=== PATIENT | male | born 1960 | race Caucasian/White ===

== ENCOUNTER 2018-04-21 20:25 | Emergency (ER) | payer MEDICARE ==
[~2018-04-21] VITALS: Ht 177.8 cm; Wt 142.9 kg
== END 2018-04-21 21:19 | disposition home or self-care (01) ==
LOC: ER 20:25
DX: L03.116 Cellulitis of left lower limb (principal); L03.115 Cellulitis of right lower limb; R60.9 Edema, unspecified; I10 Essential (primary) hypertension; E11.9 Type 2 diabetes mellitus without complications; I50.9 Heart failure, unspecified; E78.5 Hyperlipidemia, unspecified; F31.9 Bipolar disorder, unspecified; F41.9 Anxiety disorder, unspecified
CPT/HCPCS: 99282

== ENCOUNTER 2018-05-15 11:44 | Emergency (ER) | payer MEDICARE, OTHER ==
[~2018-05-15] VITALS: Ht 177.8 cm; Wt 142.9 kg
== END 2018-05-15 15:22 | disposition home or self-care (01) ==
LOC: ER 11:44
DX: S81.801A Unspecified open wound, right lower leg, initial encounter (principal); R60.9 Edema, unspecified; W22.8XXA Striking against or struck by other objects, initial encounter; Y92.015 Private garage of single-family (private) house as the place of occurrence of the external cause; I10 Essential (primary) hypertension; E11.9 Type 2 diabetes mellitus without complications; I50.9 Heart failure, unspecified; F41.9 Anxiety disorder, unspecified; F32.9 Major depressive disorder, single episode, unspecified
CPT/HCPCS: 99284

== ENCOUNTER 2018-05-22 13:46 | Inpatient (IN) | payer MEDICARE, OTHER ==
[~2018-05-22] VITALS: Ht 177.8 cm; Wt 128.8 kg
[2018-05-22] VITALS (15 sets, daily range): BP systolic 126–147; BP diastolic 66–82
[2018-05-22] MEDS: PIPERACILLIN/TAZO 2.25 GM 50 ML IV SCH ×2 (02:00→15:12)
[2018-05-22 14:40] LABS: BASOPHILS # (AUTO) 0.1 (0.0-0.1); BASOPHILS % 0.4 % (0.0-1.0); EOSINOPHILS # (AUTO) 0.4 (0.0-0.4); EOSINOPHILS % 2.3 % (0.0-6.0); HEMATOCRIT 32.5 % (38.2-49.6); LYMPHOCYTES % 5.7 % (18.0-39.1); MEAN CORPUSCULAR HEMOGLOBIN 24.6 pg (28-32); MEAN CORPUSCULAR HGB CONC 30.8 g/dL (31-35); MEAN CORPUSCULAR VOLUME 79.9 fL (81-99); MONOCYTES % 5.9 % (4.4-11.3); NEUTROPHILS # (AUTO) 14.3 (2.1-6.9); NEUTROPHILS % 85.3 % (38.7-80.0); PLATELET COUNT 401 x10e3/uL (140-360); RED BLOOD COUNT 4.07 x10e6/uL (4.3-5.7); RED CELL DISTRIBUTION WIDTH 15.8 % (11.7-14.4)
[2018-05-22 14:51] LABS: INR 1.19; PROTHROMBIN TIME 14.2 seconds (11.9-14.5)
[2018-05-22 14:52] LABS: PARTIAL THROMBOPLASTIN TIME 32.5 seconds (23.8-35.5)
[2018-05-22 15:01] LABS: ACETAMINOPHEN < 3 ug/mL (10-30); SALICYLATE < 5.0 mg/dL (0-30)
[2018-05-22 15:03] LABS: ALANINE AMINOTRANSFERASE 24 IU/L (0-55); ALBUMIN 3.4 g/dL (3.5-5.0); ALBUMIN/GLOBULIN RATIO 0.9 (0.8-2.0); ALKALINE PHOSPHATASE 230 IU/L (40-150); ANION GAP 15.6 mmol/L (8-16); BLOOD UREA NITROGEN 100 mg/dL (7-26); BUN/CREATININE RATIO 17 (6-25); CALCIUM 9.5 mg/dL (8.4-10.2); CARBON DIOXIDE 20 mmol/L (22-29); CHLORIDE 96 mmol/L (98-107); CREATINE KINASE 249 IU/L (30-200); CREATININE, SERUM 6.03 mg/dL (0.72-1.25); EST GLOMERULAR FILTRATION RATE 10 ML/MIN (60-); GLUCOSE 160 mg/dL (74-118); MAGNESIUM 2.9 MG/DL (1.3-2.1); POTASSIUM 4.6 mmol/L (3.5-5.1); SODIUM 127 mmol/L (136-145)
[2018-05-22 15:22] LABS: THYROID STIMULATING HORMONE 3.324 uIU/mL (0.350-4.940)
[2018-05-22] MEDS ORDERED: SODIUM CHLORIDE 0.9% 1000ML 1,000 ML IV STA (15:34)
[2018-05-22] MEDS ORDERED: SODIUM CHLORIDE 0.9% 1000ML 1,000 ML ONE (15:37)
[2018-05-22] MEDS ORDERED: VANCOMYCIN 1GM/NS 250 ML 250 ML IV ONE (16:00)
[2018-05-22 16:03] LABS: CLARITY,URINE CLEAR (CLEAR); COLOR,URINE YELLOW (YELLOW); LEUKOCYTE ESTERASE ,URINE NEGATIVE (NEGATIVE); NITRITE,URINE NEGATIVE (NEGATIVE); PROTEIN,URINE DIPSTICK NEGATIVE (NEGATIVE)
[2018-05-22 16:04] LABS: BILIRUBIN,URINE NEGATIVE (NEGATIVE); KETONES,URINE NEGATIVE (NEGATIVE); URINE UROBILINOGEN 0.2 mg/dL (0.2 - 1)
[2018-05-22 16:08] LABS: AMPHETAMINES SCREEN,URINE NEGATIVE (NEGATIVE); BENZODIAZEPINES SCREEN,URINE NEGATIVE (NEGATIVE); PHENCYCLIDINE SCREEN,URINE NEGATIVE (NEGATIVE)
[2018-05-22 16:17] LABS: AMMONIUM BIURATE CRYSTALS,UR FEW; BACTERIA,URINE RARE /HPF; EPITHELIAL CELLS,URINE RARE /LPF; RBC,URINE 0-5 /HPF (0-5); WBC,URINE (MAN) 0-5 /HPF (0-5)
[2018-05-22] MEDS ORDERED: ALLOPURINOL100 MG PO (16:45)
--- NOTE | 2018-05-22 16:57 | Diagnostic Imaging Report ---
EXAMINATION: CHEST SINGLE (PORTABLE) INDICATION: Weakness and altered mental status. \S\AMS \S\[id number] \S\1515 COMPARISON: None FINDINGS: AP view TUBES and LINES: None. LUNGS: Limited by body habitus and low lung volumes. There is no evidence of pneumonia or pulmonary edema. PLEURA: No significant pleural effusion or pneumothorax. HEART AND MEDIASTINUM: The cardiomediastinal silhouette is unremarkable. BONES AND SOFT TISSUES: No acute osseous lesion. Soft tissues are unremarkable. UPPER ABDOMEN: No free air under the diaphragm. IMPRESSION: No definite evidence of acute thoracic abnormality, considering limitations of the study. Signed by: Dr. Aladir Carter MD on 05/22/2018 4:53 PM
[2018-05-22] MEDS ORDERED: DEXTROSE 50% SYRINGE 50 ML IV PRN (17:15)
[2018-05-22] MEDS: SODIUM CHLORIDE 0.9% 1000ML 1,000 ML IV SCH ×2 (17:15→23:00)
[2018-05-22] MEDS ORDERED: ONDANSETRON HCL INJ 2 MG/ML VIAL IV PRN (17:15)
[2018-05-22] MEDS ORDERED: LAMOTRIGINE100 MG PO (17:34)
[2018-05-22] MEDS ORDERED: LITHIUM CARBON300 MG PO (17:34)
[2018-05-22] MEDS ORDERED: FUROSEMIDE40 MG PO (17:34)
[2018-05-22] MEDS ORDERED: AMLODIPINE BESY10 MG PO (17:34)
[2018-05-22] MEDS ORDERED: GLYBURIDE5 MG PO (17:34)
[2018-05-22] MEDS ORDERED: DICLOFENAC PO (17:34)
[2018-05-22] MEDS ORDERED: ATORVASTATIN CA20 MG PO (17:34)
[2018-05-22] MEDS ORDERED: VITAMIN D400 UNIT PO (17:34)
[2018-05-22] MEDS ORDERED: CITALOPRAM HBR20 MG PO (17:34)
[2018-05-22] MEDS ORDERED: ABILIFY30 MG PO (17:34)
[2018-05-22] MEDS ORDERED: GABAPENTIN600 MG PO (17:34)
[2018-05-22] MEDS ORDERED: LIDOCAINE 5% PATCH TP (17:34)
--- NOTE | 2018-05-22 17:38 | Diagnostic Imaging Report ---
History: Weakness, G Comparison studies: None Technique: Axial images were obtained from the skull base to the vertex. Coronal and sagittal reconstructions obtained from the axial data. Dose modulation, iterative reconstruction, and/or weight based adjustment of the mA/kV was utilized to reduce the radiation dose to as low as reasonably achievable. Findings: Scalp/skull: No abnormalities. No fractures, blastic or lytic lesions. Extra-axial spaces: No masses. No fluid collections. Brain sulci: Appropriate for age. Ventricles: Normal in size and configuration. No hydrocephalus. Parenchyma: No abnormal densities. No masses, hemorrhage, acute or chronic cortical vascular insults. Sellar/suprasellar region: No abnormalities Craniocervical junction: Patent foramen magnum. No Chiari one malformation. IMPRESSION: No abnormalities. Signed by: Dr. Husam Tamez M.D. on 05/22/2018 5:35 PM
[2018-05-22] MEDS ORDERED: LIDOCAINE HCL 10 MG/ML VIAL INJ ONE (18:49)
--- NOTE | 2018-05-22 19:41 | Consultation ---
DATE OF CONSULTATION: May 22, 2018 Patient seen in the emergency room. Very poor historian. Most of the history is from the patient's mother. This is a 57-year-old gentleman who has been to the emergency room here 3 times. No other records available. He has apparent chronic cellulitis and what appear to be cellulitis and laceration of the lower extremity. Currently they are dressed. [facility] and [facility] goes to [place]. Significant history of bipolar disorder, type-2 diabetes and hypertension. The mother and patient deny prior history of any kidney insufficiency. Apparently he was recently started on Bactrim 10 days ago when he had an ER visit and was found to have cellulitis of the lower extremity. Here, the patient is quite stuporous. Arousable. Gives some history and falls back to sleep. There is no neuromuscular irritability or any twitching noted. He is not in any respiratory distress. He does not have a Lewis catheter. He denies nausea but, according to mother, has been sleeping a lot and has been very lethargic. White count is found to be 16.7 with a hemoglobin of 10. Sodium of 127, potassium 4.6, chloride 96, bicarbonate 20 with a BUN 100 and creatinine 6. Lactic acid 21.7. Alkaline phosphatase 230. CK 249. Troponin I less than 0.01. Most recent chest x-ray shows no effusions or infiltrates. CT brain actual report is pending. SOCIAL HISTORY: Patient has no reported history of tobacco or alcohol use. CURRENT MEDICATIONS: The patient has been started on: 1. Normal saline at 100 mL an hour. 2. Received 1 dose of vancomycin. 3. Regular insulin sliding scale. HOME MEDICATIONS: He takes a whole armamentarium of medications, the most significant of which are gabapentin, metformin, glyburide, insulin, lithium and diclofenac. He has at least 20 medications listed. PHYSICAL EXAMINATION GENERAL: As mentioned, the patient is quite stuporous, lying supine in no apparent respiratory distress. VITALS: Blood pressure 131/60, pulse 64, afebrile, oxygen saturation 98% on room air. Respiratory rate 16. HEAD AND NECK: Corneas are clear. No icterus noted. LUNGS: Harsh vesicular breath sounds. Poor gas exchange but relatively clear. HEART: S1 and S2 audible. ABDOMEN: Distended, soft. Flanks full. Nontender. No apparent visceromegaly. SKIN: No skin rash noted. EXTREMITIES: The lower extremities did not show any significant edema but has dressing noted on both his pretibial areas which I did not remove for evaluation. IMPRESSION AND PLAN: Acute kidney injury, possible acute tubular necrosis. With mental status this way, I suspect we may be dealing with lithium toxicity. He may need urgent dialysis or stat dialysis. The ER physician has already called IR to place a stat dialysis catheter. The dialysis nurse is on standby. Await lithium levels. Will have the nurse insert a Lewis catheter. Continue with IV normal saline. Monitor the patient's blood sugars and empiric antibiotics given. Will hold off on his gabapentin, metformin and oral hypoglycemics. He does have a bicarbonate of 20. Anion gap is elevated but not significant. I doubt metformin may be playing a role. Bactrim is a possibility that this acute kidney injury ATN is multifactorial but must rule out lithium toxicity. Job#: [id number]
--- NOTE | 2018-05-22 20:04 | Diagnostic Imaging Report ---
Retroperitoneal ultrasound limited CPT code: 24350 Indication: Acute kidney injury. Technique: Select images from retroperitoneal ultrasound provided for INTERPRETATION:. Comparison: None Findings: The right kidney measures 12.7 cm in greatest length. The echotexture is increased. There is no evidence for mass. There is no collecting system dilatation or evidence of obstruction. No renal calculi evident. No adjacent free fluid or fluid collections. The left kidney measures 13.6 cm in greatest length. The echotexture is increased. There is no evidence for mass. There is no collecting system dilatation or evidence of obstruction. No renal calculi evident. No adjacent free fluid or fluid collections. Bladder collapsed around a Lewis catheter. No pelvic free fluid. Visualized portions of the liver demonstrate no focal abnormality. The echotexture of the liver is increased suggestive of steatosis. IMPRESSION: Increased renal echotexture suggestive of medical renal disease. No hydronephrosis. Signed by: Dr. Wagner Coffman MD on 05/22/2018 8:01 PM
[2018-05-22] MEDS ORDERED: LANTUS 3ML100 UNITS/ SQ (20:52)
[2018-05-22] MEDS ORDERED: OMEPRAZOLE40 MG PO (20:52)
[2018-05-22] MEDS ORDERED: METFORMIN HCL500 MG PO (20:52)
[2018-05-22] MEDS ORDERED: MIRTAZAPINE15 MG PO (20:52)
[2018-05-22] MEDS ORDERED: MULTI-VITAMIN1 EACH (20:55)
[2018-05-22] MEDS ORDERED: ASPIR 8181 MG PO (20:55)
[2018-05-22] MEDS ORDERED: NORCO 10-325 T1 EACH PO (20:55)
[2018-05-22] MEDS: INSULIN REGULAR, HUMAN 100 UNIT/1 ML 3ML VIAL SQ SCH (21:00)
[2018-05-22] MEDS ORDERED: HEPARIN SOD (PORCINE) 1000 UNIT/ML SDV ONE (22:25)
[2018-05-22] MEDS ORDERED: MANNITOL 25% 12.5GM/50ML 100 ML ONE (22:25)
[2018-05-22] MEDS: MANNITOL 25% 12.5GM/50 ML VIAL IV PRN (23:07)
[2018-05-23] VITALS (63 sets, daily range): BP systolic 107–177; BP diastolic 46–112
[2018-05-23 00:01] LABS: CREATINE KINASE MB 1.9 ng/mL (0-5.0)
[2018-05-23] MEDS ORDERED: HEPARIN SOD (PORCINE) 1000 UNIT/ML SDV ONE (00:57)
[2018-05-23 04:42] LABS: BASOPHILS % 0.3 % (0.0-1.0); EOSINOPHILS # (AUTO) 0.2 (0.0-0.4); EOSINOPHILS % 1.3 % (0.0-6.0); HEMATOCRIT 27.3 % (38.2-49.6); HEMOGLOBIN 8.5 g/dL (14.0-18.0); LYMPHOCYTES # (AUTO) 0.6 (1.0-3.2); LYMPHOCYTES % 4.5 % (18.0-39.1); MEAN CORPUSCULAR HEMOGLOBIN 24.3 pg (28-32); MEAN CORPUSCULAR HGB CONC 31.1 g/dL (31-35); MONOCYTES % 8.4 % (4.4-11.3); NEUTROPHILS # (AUTO) 10.4 (2.1-6.9); NEUTROPHILS % 85.1 % (38.7-80.0); PLATELET COUNT 299 x10e3/uL (140-360); RED CELL DISTRIBUTION WIDTH 15.9 % (11.7-14.4)
[2018-05-23 05:09] LABS: CREATINE KINASE MB 1.3 ng/mL (0-5.0)
[2018-05-23] MEDS: SODIUM CHLORIDE 0.45% 1,000 ML IV SCH ×2 (05:30→15:21)
[2018-05-23 05:40] LABS: ALBUMIN 2.8 g/dL (3.5-5.0); ALBUMIN/GLOBULIN RATIO 0.9 (0.8-2.0); ANION GAP 12.1 mmol/L (8-16); CALCIUM 8.5 mg/dL (8.4-10.2); CHOL/HDL RATIO 4.7 (3.9-4.7); CREATININE, SERUM 3.41 mg/dL (0.72-1.25); POTASSIUM 4.1 mmol/L (3.5-5.1)
[2018-05-23] MEDS: INSULIN REGULAR, HUMAN 100 UNIT/1 ML 3ML VIAL SQ SCH ×4 (07:30→21:00)
[2018-05-23] MEDS ORDERED: HEPARIN SOD (PORCINE) 5,000 UNIT/ML VIAL ONE (09:08)
[2018-05-23] MEDS ORDERED: MANNITOL 25% 12.5GM/50ML 100 ML ONE (09:09)
[2018-05-23] MEDS: SODIUM CHLORIDE 0.9% 1000ML 1,000 ML IV SCH (09:25)
[2018-05-23] MEDS ORDERED: PIPERACILLIN/TAZO 2.25 GM 50 ML IV SCH (10:00)
[2018-05-23] MEDS ORDERED: SODIUM CHLORIDE 0.9% 1000ML 2,000 ML IV PRN (11:15)
[2018-05-23] MEDS ORDERED: ALBUMIN 25% 12.5GM 0.25 GM/ML BTL IV PRN (11:15)
[2018-05-23] MEDS ORDERED: SODIUM CHLORIDE 0.9% 250ML 500 ML IV PRN (11:15)
[2018-05-23] MEDS ORDERED: HEPARIN SOD (PORCINE) 1000 UNIT/ML SDV IV PRN (11:15)
[2018-05-23] MEDS ORDERED: VANCOMYCIN 1GM/NS 250 ML 250 ML IV ONE (12:00)
--- NOTE | 2018-05-23 15:58 | Consultation ---
DATE OF CONSULTATION: REASON FOR CONSULTATION: Concerned about infection in bilateral lower extremities, cellulitis. HISTORY OF PRESENT ILLNESS This patient who is not a good source of information, 57-year-old white male comes in to the emergency room with not feeling well. Apparently, patient had bilateral lower extremity dermatitis/cellulitis/ulcer/lymphedema. He does have Unna boot on him. The patient was usually seen at the [facility]. He does have underlying history of hypertension, diabetes mellitus type 2, bipolar disorder, bilateral lower extremity edema, and also chronic kidney disease. The patient apparently was in the emergency room 10 days ago with redness and swelling of bilateral lower extremities. He was given Bactrim. The patient was brought to the emergency room with altered mental status. In the emergency room, he was found to have a white count of 16.7, hemoglobin of 10, sodium 127, potassium 4.6. His alk phosphatase was 230. Troponin was less than 0.01. The patient was admitted with altered mental status. He was also found to have an acute kidney injury, possible acute tubular necrosis. I was asked to see him to make recommendation in terms of antibiotic on his condition. The patient at the present time as mentioned above is a little bit confused. He is alert, follows command. He has no complaints whatsoever at present time, but on his laboratory data when he first came, his white count was 16.7, hemoglobin of 10, and hematocrit 32. His white count now is 12.18, hemoglobin 8.5, and his platelets 299. Sodium 137, potassium 4.1, creatinine 3.41, AST of 16, ALT of 20. Blood culture is pending. Urine culture is still no growth. MEDICATIONS: He is currently on Zosyn. PAST MEDICAL HISTORY: As above. PAST SURGICAL HISTORY: As above. ALLERGIES: NKA. SOCIAL HISTORY: Denies smoking, drug abuse, or alcohol abuse. FAMILY HISTORY: Unremarkable. REVIEW OF SYSTEMS: At the present time, he denies any HEENT: Negative. PULMONARY: Negative. CARDIAC: Negative. : Negative. I note that he does have diarrhea. EXTREMITIES: The legs are well wrapped. There is no erythema or edema that I can tell at the present time. IMPRESSION 1. Altered mental status, probably multifactorial, probably metabolic, Bactrim, acute tubular necrosis. 2. Low fever today. I would suggest to obtain LP. 3. meningitis/encephalitis. He received a dose of vancomycin. We will discontinue the Zosyn for now. 4. Diarrhea. We will obtain C. diff. 5. Acute tubular necrosis, on dialysis. Renal is following. 6. Cellulitis of the lower extremities, resolved. We will follow with you. Spinal fluid to be sent for cell count and diff, protein, glucose and to call me if any with the result. Job#: [id number] BEN
--- NOTE | 2018-05-23 16:03 | Consultation ---
DATE OF CONSULTATION: WOUND CONSULTATION Thank you, Dr. Pineda, for asking me to see this patient. HISTORY OF PRESENT ILLNESS: A 57-year-old male patient with history of psychiatric disorder, admitted with altered mental status and confusion. Patient also has chronic leg edema. He had bilateral leg ulcer. Patient was diagnosed with lithium toxicity and sepsis from cellulitis, lower extremity. He has ulcers to both legs from venous insufficiency. Wound consult was called. Patient is currently on dialysis. He responds to, answers simple questions; however, he has some dyskinetic movement and some confusion. PAST MEDICAL HISTORY: Hyperlipidemia, history of closed head injury, chronic bilateral leg edema, bipolar disorder, obstructive sleep apnea, GERD, diabetes mellitus, hypertension, and morbid obesity. MEDICATIONS: Amlodipine 10 mg daily, allopurinol 100 mg daily, vitamin D deficiency, taking cholecalciferol, citalopram 40 mg half tablet by mouth daily, diclofenac 1% topical gel and 75 mg tablet one p.o. twice daily, Lasix 40 mg daily, gabapentin 600 mg three times a day, glyburide 2.5 mg daily, insulin glargine 20 units daily, lamotrigine 200 mg one and half tablet daily, lithium 300 mg 4 capsules daily, metformin 1000 mg p.o. b.i.d., methocarbamol 500 mg twice daily, Remeron 45 mg at night, omeprazole 20 mg daily, and multivitamin daily. PHYSICAL EXAMINATION VITAL SIGNS: Blood pressure 120/81, pulse 82, pulse oximetry 98%. Patient is on dialysis. HEENT: Normal. NECK: No JVD. LUNG: Clear. CVS: Normal. ABDOMEN: Soft. LOWER EXTREMITIES: Bilateral leg edema present 3+ with circumferential ulceration involving both legs, 50% slough and 2% pink moderate serous drainage present. ASSESSMENT: Bilateral leg edema chronic secondary to morbid obesity, sleep apnea, gabapentin, amlodipine, lithium toxicity with acute kidney failure cause multifactorial including diclofenac, bilateral leg ulceration from venous insufficiency and chronic leg edema. PLAN: Bilateral legs cleaned with normal saline. Applied SilvaSorb, Adaptic, Kerlix and Coban for compression both legs. Consider stopping amlodipine and gabapentin, causing leg swelling. Job#: [id number] PUN
--- NOTE | 2018-05-23 16:04 | Consultation ---
DATE OF CONSULTATION: PSYCHIATRIC INITIAL EVALUATION REASON FOR CONSULTATION: For treatment and evaluation of patient's mood and psychosis. HISTORY OF PRESENTING ILLNESS: Patient is a 57-year-old male who is admitted to ICU at [facility] because of lithium toxicity. Psychiatric consult is called to evaluate patient's mood and confusion during his inpatient stay. Upon evaluation today patient is found to be lying on his bed in ICU. He is alert, awake, oriented to situation. He is somewhat lethargic but able to communicate. Patient is stressed because of his current hospitalization but denies feeling depressed. He is anxious. He is not able to sleep and eat very well. He denies any hallucinations and/or any suicidal ideations. He denies feeling hopeless and helpless. Collateral information is obtained from his mother and friend who are present in the room during this assessment, and they reported that patient has been on lithium and was acting confused prior to coming to the hospital. They understand that patient was having lithium toxicity and agree to stop psychotropic medications for now. PAST PSYCHIATRIC HISTORY: Patient has been diagnosed with bipolar disorder in the past. He has never attempted any suicide. He denies drinking alcohol and denies abusing any recreational drugs. FAMILY HISTORY: Patient's daughter suffers from mood disorder. SOCIAL HISTORY: Patient lives with his mother. ALLERGIES: NO KNOWN DRUG ALLERGIES. LABS: WBC 12.18, hemoglobin 8.5, hematocrit 27.3, platelets 299. Sodium 137, potassium 4.1, chloride 102, BUN 53, creatinine 3.41, AST 16, ALT 20, alkaline phosphatase 210. [place] level was 2.5 yesterday and 1.5 today. CURRENT MEDICATIONS 1. Vancomycin. 2. Heparin. MENTAL STATUS EXAMINATION: Patient is a middle-aged male who is currently lying on his bed. He is somewhat lethargic but is awake and oriented to situation. His mood is dysphoric with appropriate affect. He denies any suicidal or homicidal ideation at present. He denies any abnormal perceptions at present. No delusions are elicited. His thought process is goal-directed. His insight and judgment are fair. DIAGNOSIS AXIS I: Delirium due to lithium toxicity/unspecified psychosis/history of bipolar disorder. PLAN OF CARE 1. Continue to hold psychotropic medications that patient was taking before including lithium and Lamictal. 2. Add Seroquel 50 mg p.o. q.6 h. p.r.n. for agitation. 3. Add Haldol 2.5 mg IM q.6 h. p.r.n. for agitation. 4. Add Ativan 1 mg IM q.6 h. p.r.n. for agitation. 5. Supportive therapy during his inpatient stay. Job#: [id number] EV
[2018-05-23] MEDS: LORAZEPAM INJ 2 MG/ML VIAL IM PRN (23:12)
[2018-05-24] VITALS (68 sets, daily range): BP systolic 100–164; BP diastolic 47–121
[2018-05-24 05:25] LABS: ALBUMIN 2.7 g/dL (3.5-5.0); ALBUMIN/GLOBULIN RATIO 0.9 (0.8-2.0); ANION GAP 11.6 mmol/L (8-16); CALCIUM 8.8 mg/dL (8.4-10.2); CREATININE, SERUM 2.18 mg/dL (0.72-1.25); POTASSIUM 3.6 mmol/L (3.5-5.1)
--- NOTE | 2018-05-24 07:54 | Diagnostic Imaging Report ---
Date and Time: 05/22/2018 Procedure: Temporary hemodialysis catheter placement, right internal jugular approach machine operator hop picker: Dr. Payan Pre-operative diagnosis: Acute kidney injury Post-operative diagnosis: Acute kidney injury Conscious Sedation: None The patient's heart rate and pulse oximetry were continuously monitored by the ICU nurse. Blood pressure was monitored at 5 minute intervals. Additional Medications: Lidocaine 1% for local anesthesia Fluoroscopy time: 8 seconds Dose-area Product: 108.8 cGycm2. Frontal Air Kerma: 6.72 mGy Contrast used: None Estimated blood loss: Minimal Blood products administered: None Specimens: None Implants: 13 Italian 15 cm high flow central venous catheter DISCUSSION: Informed consent was obtained and documented in the medical record. The patient was placed in the supine position on the operating table. Preliminary sonographic evaluation of the right internal jugular vein confirmed patency evidenced by compressibility. The right neck was prepped and draped in the standard sterile fashion. 1% lidocaine was infiltrated into the skin and subcutaneous tissues for local anesthesia. Then under continuous sonographic guidance an 18-gauge singlewall needle was used to access the right internal jugular vein. A permanent sonographic image was stored. A 0.0 3 5-in. J-wire was advanced centrally with continuous cardiac rhythm monitoring. The needle was removed over the wire and the tract was dilated. A 13 Italian 15 cm triple-lumen hi flow central venous catheter was then advanced over the wire to full depth. The wire was removed and the catheter tip was positioned in the low superior vena cava under fluoroscopy. Each lumen showed adequate bidirectional flow and was flushed with sterile saline. The catheter was secured to the skin with monofilament nylon suture and a sterile dressing was applied. The patient tolerated the procedure well without immediate complication. FINDINGS: Patent right internal jugular vein. IMPRESSION: Successful placement of a 13 Italian, 15 cm triple-lumen hi flow central venous catheter by a right internal jugular approach under sonographic and fluoroscopic guidance. Signed by: Dr. Del Payan M.D. on 05/24/2018 7:50 AM
[2018-05-24] MEDS: SODIUM CHLORIDE 0.45% 1,000 ML IV SCH ×2 (08:00→18:00)
[2018-05-24] MEDS: INSULIN REGULAR, HUMAN 100 UNIT/1 ML 3ML VIAL SQ SCH ×4 (08:10→21:11)
[2018-05-24] MEDS: PIPERACILLIN/TAZO 2.25 GM 50 ML IV SCH ×2 (15:37→22:46)
[2018-05-24] MEDS: HALOPERIDOL LACTATE 5 MG/ML VIAL IM PRN (15:37)
[2018-05-24] MEDS ORDERED: KCL 20MEQ/.9 SOD CHL 1,000 ML IV ONE (18:45)
[2018-05-24] MEDS ORDERED: POTASSIUM CHLORIDE 20MEQ/100ML 100 ML IV ONE (19:00)
[2018-05-25] VITALS (49 sets, daily range): BP systolic 126–198; BP diastolic 71–109
[2018-05-25] MEDS: QUETIAPINE FUMARATE 25 MG TAB PO PRN ×2 (00:12→09:30)
[2018-05-25] MEDS: SODIUM CHLORIDE 0.45% 1,000 ML IV SCH ×2 (03:45→14:00)
[2018-05-25 05:09] LABS: BASOPHILS # (AUTO) 0.1 (0.0-0.1); BASOPHILS % 0.6 % (0.0-1.0); EOSINOPHILS # (AUTO) 0.2 (0.0-0.4); HEMATOCRIT 28.4 % (38.2-49.6); HEMOGLOBIN 8.5 g/dL (14.0-18.0); LYMPHOCYTES # (AUTO) 0.9 (1.0-3.2); LYMPHOCYTES % 8.9 % (18.0-39.1); MEAN CORPUSCULAR HEMOGLOBIN 24.6 pg (28-32); MEAN CORPUSCULAR HGB CONC 29.9 g/dL (31-35); MONOCYTES % 9.9 % (4.4-11.3); NEUTROPHILS % 78.1 % (38.7-80.0); PLATELET COUNT 269 x10e3/uL (140-360); RED BLOOD COUNT 3.45 x10e6/uL (4.3-5.7); RED CELL DISTRIBUTION WIDTH 16.3 % (11.7-14.4)
[2018-05-25 05:10] LABS: MEAN CORPUSCULAR VOLUME 82.3 fL (81-99)
[2018-05-25 05:31] LABS: ALBUMIN 2.7 g/dL (3.5-5.0); ALBUMIN/GLOBULIN RATIO 0.8 (0.8-2.0); ANION GAP 11.8 mmol/L (8-16); CALCIUM 9.2 mg/dL (8.4-10.2); CREATININE, SERUM 1.63 mg/dL (0.72-1.25); POTASSIUM 3.8 mmol/L (3.5-5.1)
[2018-05-25] MEDS: PIPERACILLIN/TAZO 2.25 GM 50 ML IV SCH ×3 (06:10→21:18)
[2018-05-25] MEDS: INSULIN REGULAR, HUMAN 100 UNIT/1 ML 3ML VIAL SQ SCH ×4 (07:37→21:15)
[2018-05-25] MEDS: LACTULOSE SYRUP 20 GM/30 ML UDC PO PRN ×2 (11:33→18:44)
--- NOTE | 2018-05-25 15:17 | Diagnostic Imaging Report ---
EXAM: Abdomen 2 Views INDICATION: \S\abdominal distention/discomfort \S\[id number] \S\0958 COMPARISON: Renal ultrasound 05/22/2018 FINDINGS: Mild amount of stool in the colon. Mildly distended colon. No air within the rectum. No dilated loops of small bowel. No renal calculi. No abnormal soft tissue masses. Mild degenerative changes in the lumbar spine and pelvis. IMPRESSION: Mildly distended loops of colon with nondilated loops of the small bowel remains indeterminate for bowel obstruction. Signed by: Dr. Mylene Degroot M.D. on 05/25/2018 3:14 PM
[2018-05-25] MEDS ORDERED: MINERAL OIL 132 ML BTL PR ONE (17:30)
[2018-05-25] MEDS: LORAZEPAM INJ 2 MG/ML VIAL IM PRN (20:22)
--- NOTE | 2018-05-25 21:00 | Diagnostic Imaging Report ---
CT Abdomen Unenhanced CPT CODE: 31425 INDICATION: Ileus TECHNIQUE: 5 mm collimation axial images obtained from lung base to iliac crest without intravenous or oral contrast. RADIATION DOSE: Total DLP: 567.95 mGy*cm Estimated effective dose: (DLP x 0.015 x size factor) mSv CTDIvol has been reviewed. It is below the limits set by the Radiation Protocol Committee (RPC). Comparison: Abdomen x-ray 0942 hours. FINDINGS: Lung bases: Clear. Visualized portion of the mediastinum is normal. Liver: Decreased attenuation consistent with steatosis. The right lobe measures 17 cm in craniocaudal dimension. No evidence of mass. Gallbladder: Present. No wall thickening, gallstone or ductal dilatation.. Pancreas: Diffuse fatty atrophy. No mass or ductal dilatation. Spleen: Measures 13 cm. No mass. Adrenal Glands: No evidence for mass.. Kidneys: Right kidney: Hyperdense lesion in the posterior interpolar region measures 12 mm and abuts the renal sinus fat. No intrarenal calculi. No hydronephrosis. Left kidney: No mass or calculus. No hydronephrosis. Bowel: Stomach: Collapsed. Small bowel: Visualized portions of the small bowel are normal in diameter with normal wall thickness. Large bowel: Gaseous distention of the right colon and transverse colon. The distal transverse colon measures 6.2 cm in diameter. The right colon measures 7.9 cm in diameter and contains fluid as well as air. The descending colon measures 4.5 cm in diameter. There is gaseous distention at the top of the sigmoid colon as it turns midline. No pneumatosis. No diverticulosis. No pericolonic inflammation. Aorta: Normal in diameter. Lymph Nodes: No lymphadenopathy. No free fluid or fluid collection. No free air. Bones: Moderate degenerative changes of the upper lumbar spine. No lytic or blastic lesions. Soft tissues: Unremarkable. IMPRESSION: 1. Gaseous distention of the large bowel extending to the sigmoid colon. The etiology cannot be determined due to incomplete imaging of the entire colon. 2. No small bowel dilatation on this exam. 3. Hepatic steatosis and mild hepatomegaly. 4. Hyperdense mass in the right kidney should be evaluated with contrast-enhanced CT dedicated to the kidneys. Signed by: Dr. Wagner Coffman MD on 05/25/2018 8:56 PM
[2018-05-26] VITALS (23 sets, daily range): BP systolic 130–184; BP diastolic 71–109
[2018-05-26] MEDS: SODIUM CHLORIDE 0.45% 1,000 ML IV SCH ×2 (02:50→15:51)
[2018-05-26 04:57] LABS: BASOPHILS # (AUTO) 0.1 (0.0-0.1); BASOPHILS % 0.4 % (0.0-1.0); EOSINOPHILS # (AUTO) 0.3 (0.0-0.4); EOSINOPHILS % 2.6 % (0.0-6.0); HEMATOCRIT 29.4 % (38.2-49.6); HEMOGLOBIN 8.7 g/dL (14.0-18.0); LYMPHOCYTES # (AUTO) 0.8 (1.0-3.2); LYMPHOCYTES % 6.4 % (18.0-39.1); MEAN CORPUSCULAR HEMOGLOBIN 24.3 pg (28-32); MEAN CORPUSCULAR HGB CONC 29.6 g/dL (31-35); MEAN CORPUSCULAR VOLUME 82.1 fL (81-99); MONOCYTES # (AUTO) 0.8 (0.2-0.8); NEUTROPHILS # (AUTO) 10.1 (2.1-6.9); NEUTROPHILS % 83.4 % (38.7-80.0); PLATELET COUNT 317 x10e3/uL (140-360); RED BLOOD COUNT 3.58 x10e6/uL (4.3-5.7); RED CELL DISTRIBUTION WIDTH 16.2 % (11.7-14.4)
[2018-05-26] MEDS: PIPERACILLIN/TAZO 2.25 GM 50 ML IV SCH ×3 (05:15→21:43)
[2018-05-26 05:35] LABS: ALBUMIN 2.8 g/dL (3.5-5.0); ALBUMIN/GLOBULIN RATIO 0.8 (0.8-2.0); ANION GAP 12.4 mmol/L (8-16); CALCIUM 9.1 mg/dL (8.4-10.2); CREATININE, SERUM 1.63 mg/dL (0.72-1.25); MAGNESIUM 1.7 MG/DL (1.3-2.1); PHOSPHORUS 3.2 MG/DL (2.3-4.7); POTASSIUM 3.4 mmol/L (3.5-5.1)
[2018-05-26] MEDS: INSULIN REGULAR, HUMAN 100 UNIT/1 ML 3ML VIAL SQ SCH ×4 (07:30→21:52)
[2018-05-26] MEDS ORDERED: FENTANYL CITRATE/PF 100MCG/2 ML INJ ONE (08:36)
--- NOTE | 2018-05-26 12:32 | Progress Note ---
DATE: SUBJECTIVE: Patient evaluated and events noted. INTERVAL HISTORY: Patient is still in ICU. He is alert and awake but he is confused. He believes that he is in [place]. He feels better. He is not able to answer all the questions because of his confusion. He denies feeling depressed. He denies any side effects from his medications. As per the nursing staff, patient has been more alert and less confused during the shift. He has not been agitated. He is not getting any p.r.n. IM medications for his behavior, but he has to be put into soft restraints so that he does not pull his dialysis lines. DIAGNOSES: [place] I 1. Delirium, multifactorial, already improving. 2. History of bipolar disorder. PLAN 1. Add Seroquel 50 mg p.o. at bedtime. 2. Continue Seroquel 50 mg p.o. q.6 p.r.n. 3. Continue Haldol 2.5 mg IM q.6 p.r.n. 4. Continue Ativan 1 mg IM q.6 p.r.n. 5. Monitor for agitation. Job#: [id number] LUCILA
[2018-05-26] MEDS ORDERED: PROPOFOL IV EMULSION 10 MG/ML 50 ML VIAL ONE (14:07)
[2018-05-26] MEDS ORDERED: HYOSCYAMINE SULFATE 0.5 MG/ML AMP ONE (14:07)
[2018-05-26] MEDS: QUETIAPINE FUMARATE 25 MG TAB PO SCH (21:43)
--- NOTE | 2018-05-26 22:51 | Operative Report ---
DATE OF PROCEDURE: May 26, 2018 REFERRING PHYSICIAN: Dr. Yoon Sierra and Dr. Woody Pineda. PROCEDURE PERFORMED: Colonoscopy with decompression of colon. INDICATIONS FOR COLONOSCOPY: Distended colon, ? Dawit syndrome. MEDICATION: Patient was done under MAC. Please see anesthesiologist's note. PROCEDURE: With the patient in left lateral decubitus position, a flexible fiberoptic Olympus colonoscope was inserted into the rectum with ease and advanced all the way to the cecum. The prep was suboptimal to poor but no obvious obstructing or constricting lesions were noted. The scope was then withdrawn slowly. The colon was decompressed. The scope was retroflexed into the distal rectum and small internal hemorrhoids were noted, none of which was actively bleeding. The scope was subsequently withdrawn and rectal tube was inserted. Patient tolerated the procedure well. IMPRESSION 1. Suboptimal to poor prep. No obvious obstructing or constricting lesions. 2. Colon was decompressed. Rectal tube was inserted. 3. Internal hemorrhoids, none actively bleeding. PLAN: Initiate full liquid diet. Patient will need a colonoscopy electively after a better prep. Job#: [id number] GEORGE cc:Dr. Yoon Pineda
[2018-05-26] MEDS: HALOPERIDOL LACTATE 5 MG/ML VIAL IM PRN (23:00)
[2018-05-27] VITALS (27 sets, daily range): BP systolic 122–182; BP diastolic 69–121
[2018-05-27] MEDS: LORAZEPAM INJ 2 MG/ML VIAL IM PRN ×2 (01:43→14:45)
[2018-05-27] MEDS: PIPERACILLIN/TAZO 2.25 GM 50 ML IV SCH ×2 (05:29→14:49)
[2018-05-27] MEDS: SODIUM CHLORIDE 0.45% 1,000 ML IV SCH (07:35)
[2018-05-27] MEDS: INSULIN REGULAR, HUMAN 100 UNIT/1 ML 3ML VIAL SQ SCH ×4 (08:00→21:13)
[2018-05-27] MEDS ORDERED: CLONIDINE HCL 0.2 MG TAB PO PRN (08:45)
[2018-05-27] MEDS ORDERED: LISINOPRIL 20 MG TAB PO SCH (09:00)
--- NOTE | 2018-05-27 15:13 | Progress Note ---
DATE: INTERNAL MEDICINE PROGRESS NOTE SUBJECTIVE: Patient is very confused today. Having diarrhea. PHYSICAL EXAM: HEART: Shows regular rhythm. Normal S1, S2 sounds. LUNGS: Clear bilaterally. ABDOMEN: Soft. EXTREMITIES: . VITAL SIGNS: Blood pressure 163/121, temperature 98.9, heart rate 90 per minute, respiratory rate 20 per minute. Oxygen saturation 99%. BLOOD WORK: We have BMP with sodium 141, potassium 3.4, chloride 108, CO2 24, BUN 12, creatinine 1.63. Glucose 173. On the CBC, white blood count 12,200, hemoglobin 8.7, hematocrit 29.4, platelet count 317,000. PT 14.2, PTT 32.5, INR 1.19. AST 29, ALT 35, total bilirubin 0.3, alkaline phosphatase 152. FINAL IMPRESSION 1. Metabolic encephalopathy. 2. Acute renal failure. 3. Sepsis. 4. Acute diarrhea. 5. Right leg cellulitis. 6. Anemia of chronic disease. 7. Hypokalemia. 8. Acute diarrhea. 9. Diabetes mellitus type 2 with chronic renal insufficiency. PLAN OF TREATMENT: Continue Zosyn q.8 hours. Continue IV normal saline at 75 mL an hour. Mannitol as needed. Haldol 2 mg IV q.6 hours as needed. Clonidine 0.2 mg q.4 hours as needed for hypertension. Lactulose 20 grams twice a day only as needed for constipation. Ativan 1 mg IV q.6 hours as needed for agitation. Heparin 4000 units as needed. Seroquel 50 mg at bedtime. Continue monitoring blood sugar a.c. and h.s. Lisinopril 20 mg daily. Job#: [id number] BEN
[2018-05-27 15:15] LABS: ANION GAP 14.5 mmol/L (8-16); CALCIUM 9.3 mg/dL (8.4-10.2); CREATININE, SERUM 1.43 mg/dL (0.72-1.25); POTASSIUM 3.5 mmol/L (3.5-5.1)
[2018-05-27] MEDS: HALOPERIDOL LACTATE 5 MG/ML VIAL IM PRN (15:51)
--- NOTE | 2018-05-27 18:18 | Progress Note ---
DATE: PROGRESS NOTE SUBJECTIVE: Mr. Parkinson is currently sleepy. Apparently, he became more alert and oriented. Patient is currently on his way to [place]. He does have diarrhea. LABORATORY DATA: White count is 12.6, hemoglobin 8.7. Sodium 143, potassium 3.5, creatinine 1.43. PHYSICAL EXAMINATION GENERAL: He is currently alert, does not seem to be in acute distress, obese. HEENT: He does not appear icteric. NECK: Supple. CHEST: Few crackles. COR: S1 and S2. No S3, S4 or murmur. ABDOMEN: Soft. IMPRESSION AND PLAN 1. Chronic dermatitis. 2. Patient is morbidly obese. 3. Diarrhea, concern induced by antibiotic, will discontinue. 4. Debility. 5. History of chronic pain. 1. Chronic kidney disease. 2. Sleep apnea. 3. Diabetes. 4. Will follow with you. Job#: [id number] LEXY
[2018-05-27] MEDS: QUETIAPINE FUMARATE 25 MG TAB PO SCH (21:13)
[2018-05-27] MEDS ORDERED: METRONIDAZOLE 500MG/NS 100ML 100 ML IV SCH (22:00)
== END 2018-05-27 22:00 | DRG 853 ==
LOC: ER 13:46 → ERHOLD 17:05 → ICU 20:18
PROC: 02HV33Z Insertion of Infusion Device into Superior Vena Cava, Percutaneous Approach (ICD-10-PCS; principal; 2018-05-22)
PROC: 5A1D70Z Performance of Urinary Filtration, Intermittent, Less than 6 Hours Per Day (ICD-10-PCS; 2018-05-23)
PROC: 5A1D70Z Performance of Urinary Filtration, Intermittent, Less than 6 Hours Per Day (ICD-10-PCS; 2018-05-24)
PROC: 0D9H8ZZ Drainage of Cecum, Via Natural or Artificial Opening Endoscopic (ICD-10-PCS; 2018-05-26)
DX: A41.9 Sepsis, unspecified organism (principal); N17.0 Acute kidney failure with tubular necrosis; G93.41 Metabolic encephalopathy; J18.9 Pneumonia, unspecified organism; L03.116 Cellulitis of left lower limb; L03.115 Cellulitis of right lower limb; Z68.41 Body mass index [BMI] 40.0-44.9, adult; R65.20 Severe sepsis without septic shock; E78.5 Hyperlipidemia, unspecified; F31.9 Bipolar disorder, unspecified; M10.9 Gout, unspecified; I87.2 Venous insufficiency (chronic) (peripheral); E66.01 Morbid (severe) obesity due to excess calories; E87.6 Hypokalemia; Z78.1 Physical restraint status; G47.30 Sleep apnea, unspecified; G89.29 Other chronic pain; J20.9 Acute bronchitis, unspecified; E11.51 Type 2 diabetes mellitus with diabetic peripheral angiopathy without gangrene; Z79.4 Long term (current) use of insulin; T43.595A Adverse effect of other antipsychotics and neuroleptics, initial encounter; R41.0 Disorientation, unspecified; E11.22 Type 2 diabetes mellitus with diabetic chronic kidney disease; I12.9 Hypertensive chronic kidney disease with stage 1 through stage 4 chronic kidney disease, or unspecified chronic kidney disease; N18.9 Chronic kidney disease, unspecified
CPT/HCPCS: 36415; 36556; 45378; 51700; 70450; 71045; 74018; 74150; 74470; 76770; 76937; 77001; 80048; 80053; 80061; 80178; 80307; 80329; 81001; 82140; 82550; 82553; 82948; 83605; 83735; 84100; 84132; 84443; 84484; 84550; 85025; 85610; 85730; 86705; 86706; 87040; 87086; 87340; 87493; 90962; 93005; 93306; 96361; 96367; 96372; 97139; 99284; J1630; J1644; J1980; J2060; J2150; J2543; J3370; J3480; J7030

== ENCOUNTER 2019-08-23 06:20 | Emergency (ER) | payer MEDICARE, OTHER ==
[~2019-08-23] VITALS: Ht 177.8 cm; Wt 135.6 kg
[~2019-08-23 06:20] MED LIST: ABILIFY30 MG PO; ALLOPURINOL100 MG PO; AMLODIPINE BESY10 MG PO; ASPIR 8181 MG PO; ATORVASTATIN CA20 MG PO; CITALOPRAM HBR20 MG PO; DICLOFENAC PO; FUROSEMIDE40 MG PO; GABAPENTIN600 MG PO; GLYBURIDE5 MG PO; LAMOTRIGINE100 MG PO; LANTUS 3ML100 UNITS/ SQ; LIDOCAINE 5% PATCH TP; LITHIUM CARBON300 MG PO; METFORMIN HCL500 MG PO; MIRTAZAPINE15 MG PO; MULTI-VITAMIN1 EACH; NORCO 10-325 T1 EACH PO; OMEPRAZOLE40 MG PO; VITAMIN D400 UNIT PO
--- NOTE | 2019-08-23 06:45 | NUR ---
PT REPORTS BEING A UATSDIN. PT DENIES RECEIVING ANY BLOOD OR BLOOD CONTAINING PRODUCTS.
--- NOTE | 2019-08-23 07:59 | NUR ---
ultrasound at bedside for procedure
--- NOTE | 2019-08-23 08:08 | Diagnostic Imaging Report ---
X-ray left knee 3 views HISTORY: Pain. COMPARISON: None available. FINDINGS: Bones: No acute displaced fracture. Osseous alignment is within normal limits. Joints: Tricompartmental degenerative changes, medial tibiofemoral compartment predominant. No dislocations. Soft tissues: The soft tissues appear unremarkable. IMPRESSION: No acute radiographic osseous abnormality. Tricompartmental degenerative changes, medial tibiofemoral compartment predominant. Signed by: Jamil Montes De Oca DO on 08/23/2019 8:05 AM
[2019-08-23 08:37] VITALS: BP 150/86
== END 2019-08-23 08:48 | disposition home or self-care (01) ==
LOC: ER 06:20
DX: M25.562 Pain in left knee (principal); M79.662 Pain in left lower leg; I10 Essential (primary) hypertension; E11.9 Type 2 diabetes mellitus without complications; I50.9 Heart failure, unspecified; K21.9 Gastro-esophageal reflux disease without esophagitis; F41.9 Anxiety disorder, unspecified; F31.9 Bipolar disorder, unspecified
CPT/HCPCS: 93971; 99283

== ENCOUNTER 2020-01-16 16:08 | Emergency (ER) | payer MEDICARE, OTHER ==
[~2020-01-16] VITALS: Ht 177.8 cm; Wt 135.6 kg
[2020-01-16] MEDS ORDERED: DEXAMETHASONE SOD PHOS 10 MG/1 ML VIAL IM ONE (16:45)
[2020-01-16] MEDS ORDERED: HYDROCODONE/APAP 10MG-325MG TAB PO ONE (16:45)
== END 2020-01-16 16:56 | disposition home or self-care (01) ==
LOC: ER 16:08
DX: M25.562 Pain in left knee (principal); M25.462 Effusion, left knee; G89.29 Other chronic pain; E11.9 Type 2 diabetes mellitus without complications; I50.9 Heart failure, unspecified; F32.9 Major depressive disorder, single episode, unspecified
CPT/HCPCS: 99282; J1100

== ENCOUNTER 2020-02-11 14:17 | Inpatient (IN) | payer MEDICARE, OTHER ==
[~2020-02-11] VITALS: Ht 177.8 cm; Wt 127.5 kg
--- OUTSIDE RECORDS SUMMARY | 2020-02-11 14:20 | XMS REPORT ---
Author Author [facility] t Organization [facility] Address [address] [place] [address] Phone Unavailable Care Team Providers Care Plastic Extrusion Operator Name Role Phone NONSTAFF PCP Unavailable Hattie MONZON Attphys Unavailable BENDER, SOUHEIL Attphys Unavailable BENDER, SOUHEIL Admphys Unavailable Payers Payer Name Policy Type Policy Number Effective Date Expiration Date [place] Medicare A & B NA 2007 00:00:00 C [facility] Miscellaneous Ppo NA [facility] Problems Condition Name Condition Details Condition Category Status Onset Date Resolution Date Last Treatment Date Treating Clinician Comments Source Altered mental status Altered mental status Problem Active [facility] Cellulitis Cellulitis Problem Active [facility] Renal failure Renal failure Problem Active [facility] Sepsis Sepsis Problem Active [facility] Uremia Uremia Problem Active [facility] Allergies, Adverse Reactions, Alerts This patient has no known allergies or adverse reactions. Social History Social Habit Start Date Stop Date Quantity Comments Source Sex Assigned At 1960 00:00:00 1960 00:00:00 Male [facility] Medications Ordered Medication Name Filled Medication Name Start Date Stop Da te Current Medication? Ordering Clinician Indication Dosage Frequency Signature (SIG) Comments Components Source Allopurinol Allopurinol Yes 100 Daily [facility] Amlodipine Besylate Amlodipine Besylate Yes 10 Daily [facility] Aripiprazole (Abilify) 30 Mg TABLET Aripiprazole (Abilify) 30 Mg TABL ET Yes 30 Daily [facility] Aspirin (Aspir 81) 81 Mg TABLET. Aspirin (Aspir 81) 81 Mg TABLET. Yes Daily [facility] Atorvastatin Calcium Atorvastatin Calcium Yes 40 Bedtime [facility] Cholecalciferol (Vitamin D3) (Vitamin D) 400 Unit CAPS ULE Cholecalciferol (Vitamin D3) (Vitamin D) 400 Unit CAPSULE Yes 800 Daily [facility] Citalopram Hydrobromide (Citalopram Hbr) 20 Mg TABLET Citalopram Hydrobromide (Citalopram Hbr) 20 Mg TABLET Yes 40 Daily [facility] Diclofenac Diclofenac Yes 75 Twice A Day as n eeded for Pain [facility] Furosemide Furosemide Yes 40 Daily [facility] Gabapentin Gabapentin Yes 600 Three Time s A Day as needed for Pain [facility] Glyburide Glyburide Yes 2.5 W/Evening Meal [facility] Hydrocodone Bit/Acetaminophen ([place] 10-325 Tablet) 1 Each TABLET Hydrocodone Bit/Acetaminophen ([place] 10-325 Tablet) 1 Each TABLET Yes As Needed for Pain [facility] Insulin Glargine (Lantus 3ML Pen) 100 Units/1 Ml INJ I nsulin Glargine (Lantus 3ML Pen) 100 Units/1 Ml INJ Yes 20 Bedtime [facility] Lamotrigine Lamotrigine Yes 300 Daily [facility] Lidocaine 5% Patch Lidocaine 5% Patch Yes 1 Fo r 12 Hrs Then Off [facility] Manilla Carbonate Manilla Carbonate Yes 1200 Bedt jaskaran [facility] Metformin Hcl Metformin Hcl Yes 1000 Twice A Day [facility] Mirtazapine Mirtazapine Yes 45 Bedtime for Slee p [facility] Multivitamin (Multi-Vitamin Daily) 1 Each TABLET Multi vitamin (Multi-Vitamin Daily) 1 Each TABLET Yes [facility] Omeprazole Omeprazole Yes 20 Daily [facility] Vital Signs Vital Name Observation Time Observation Value Comments Source Weight 2020-01-16 16:25:00 299 [lb_av] [facility] BMI (Body Mass Index) 2020-01-16 16:25:00 42.9 kg/m2 [facility] Body Temperature 2019-08-23 07:37:00 97.6 [degF] [facility] Procedures This patient has no known procedures. Plan of Care Planned Activity Planned Date Details Comments Source Instructions Knee Overuse [facility] Encounters Start Date/Time End Date/Time Encounter Type Admission Type Attendi [facility] Care Department Encounter ID Source 2020-01-16 16:08:00 2020-01-16 16:56:00 Departed Emergency Room [facility] [place] [place] [id number] [facility] 2019-08-23 05:20:00 2019-08-23 07:48:00 Departed Emergency Room [address] [facility] [place] [place] [id number] [facility] 2018-05-22 17:05:00 2018-05-27 22:00:00 Discharged Inpatient 1 DENIZ BENDER [facility] [id number] [facility] 2018-05-15 11:44:00 2018-05-15 15:22:00 Departed Emergency Room [facility] [id number] [facility] 2018-04-21 20:25:00 2018-04-21 21:19:00 Departed Emergency Room [facility] [id number] [facility] Results Test Description Test Time Test Comments Results Result Comments Source KNEE LEFT THREE VIEWS 2019-08-23 08:04:00 [facility] [address] [place] [address] Patient Name: JOVANY WELLINGTON MR #: [id number] : 1960 Age/Sex: 59/M Req #: [id number] Adm Physician: Ordered by: DONALD MONZON MD Report #: [id number] Location: ER Room/Bed: Procedure: [id number] DX/KNEE LEFT THREE VIEWS Exam Date: 08/23/19 Exam Time: 0745 REPORT STATUS: Signed X-ray left knee 3 views HISTORY: Pain. COMPARISON: None available. FINDINGS: Bones: No acute displaced fracture. Osseous alignment is within normal limits. Joints: Tricompartmental degenerative changes, medial tibiofemoral compartment predominant. No dislocations. Soft tissues: The soft tissues appear unremarkable. IMPRESSION: No acute radiographic osseous abnormality. Tricompartmental degenerative changes, medial tibiofemoral compartment predominant. Signed by: Jamil Stokes DO on 08/23/2019 8:05 AM Dictated By: JAMIL STOKES DO 4 Transcribed By: LESLI on 08/23/19804 COPY TO: DONALD MONZON MD Bedside Glucose 2018-05-27 20:16:00 Test Item Bedside Glucose (test code = 57460-1) 212 70-120 H Meter ID: [id number] Vista Medical CenterMagnesium Level 2018-05-27 15:42:00* Test Item Value Reference Range Interpretation Comments Magnesium Level (test code = 12258-5) 1.8 1.3-2.1 [facility] Zwola6707-08-79 15:25:00* Test Item Value Reference Range Interpretation Comments Sodium Level (test code = 2951-2) 143 136-145 [facility] CenterPotassium Gskds6162-42-16 15:25:00* Test Item Value Reference Range Interpretation Comments Potassium Level (test code = 2823-3) 3.5 3.5-5.1 [facility] CenterChloride Onley3162-69-24 15:25:00* Test Item Value Reference Range Interpretation Comments Chloride Level (test code = 2075-0) 111 98-107 H [facility] CenterCarbon Dioxide Zkygp2055-79-74 15:25:00* Test Item Value Reference Range Interpretation Comments Carbon Dioxide Level (test code = 8-9) 21 22-29 L [facility] CenterAnion Xnd0486-18-41 15:25:00* Test Item Value Reference Range Interpretation Comments Anion Gap (test code = 00886-1) 14.5 8-16 [facility] CenterBlood Urea Tlmdrcpb7681-77-00 15:25:00* Test Item Value Reference Range Interpretation Comments Blood Urea Nitrogen (test code = 3094-0) 12 7-26 [facility] CenterCreatinine2018-09-15 15:25:00* Test Item Value Reference Range Interpretation Comments Creatinine (test code = 2160-0) 1.43 0.72-1.25 H [facility] CenterBUN/Creatinine Utqjm1940-14-28 15:25:00* Test Item Value Reference Range Interpretation Comments BUN/Creatinine Ratio (test code = 3097-3) 8 6-25 [facility] CenterEstimat Glomerular Filtration Rate 2018-05-27 15:25:00* Test Item Value Reference Range Interpretation Comments Estimat Glomerular Filtration Rate (test code = 903930190) 51 >60 L Ranges were taken from the National Kidney Disease Education Program and the [facility] Kid[facility] Foundation literature.Reference ranges:60 or greater: Lkuwvu60-02 ( for 3 consecutive months): Chronic kidney disease 15 or less: Kidney failureTexas Vista Medical CenterGlucose Ctcks7174-52-95 15:25:00* Test Item Value Reference Range Interpretation Comments Glucose Level (test code = UZU1495) 181 74-118 H [facility] CenterCalcium Auvyp2838-10-11 15:25:00* Test Item Value Reference Range Interpretation Comments Calcium Level (test code = 56472-8) 9.3 8.4-10.2 [facility] CenterBlood Vtoeznp0296-26-95 14:42:00* Test Item Value Reference Range Interpretation Comments Blood Culture (test code = 22244046) NO GROWTH AFTER 5 DAYS, FINAL REPORT [facility] CenterWhite Blood Nqawo5268-88-66 06:10:00* Test Item Value Reference Range Interpretation Comments White Blood Count (test code = 6690-2) 12.06 4.8-10.8 H [facility] CenterRed Blood Fxbiq4296-32-35 06:10:00* Test Item Value Reference Range Interpretation Comments Red Blood Count (test code = 789-8) 3.58 4.3-5.7 L [facility] CenterHemoglobin2018-09-14 06:10:00* Test Item Value Reference Range Interpretation Comments Hemoglobin (test code = 21536-7) 8.7 14.0-18.0 L [facility] CenterHematocrit2018-09-14 06:10:00* Test Item Value Reference Range Interpretation Comments Hematocrit (test code = 4544-3) 29.4 38.2-49.6 L [facility] CenterMean Corpuscular Tqpsky1340-06-78 06:10:00* Test Item Value Reference Range Interpretation Comments Mean Corpuscular Volume (test code = 787-2) 82.1 81-99 [facility] CenterMean Corpuscular Taviwosbrh8198-91-94 06:10:00* Test Item Value Reference Range Interpretation Comments Mean Corpuscular Hemoglobin (test code = 785-6) 24.3 28-32 L [facility] CenterMean Corpuscular Hemoglobin Concent 2018-05-26 06:10:00* Test Item Value Reference Range Interpretation Comments Mean Corpuscular Hemoglobin Concent (test code = 786-4) 29.6 31-35 L [facility] CenterRed Cell Distribution Ugwlq4271-04-73 06:10:00* Test Item Value Reference Range Interpretation Comments Red Cell Distribution Width (test code = 35860-0) 16.2 11.7 -14.4 H [facility] CenterPlatelet Lervp0660-83-63 06:10:00* Test Item Value Reference Range Interpretation Comments Platelet Count (test code = 777-3) 317 140-360 [facility] CenterNeutrophils (%) (Auto)2018-05-26 06:10:00 * Test Item Value Reference Range Interpretation Comments Neutrophils (%) (Auto) (test code = 53000-2) 83.4 38.7-80.0 H [facility] CenterLymphocytes (%) (Auto)2018-05-26 06:10:00 * Test Item Value Reference Range Interpretation Comments Lymphocytes (%) (Auto) (test code = 736-9) 6.4 18.0-39.1 L [facility] CenterMonocytes (%) (Auto)2018-05-26 06:10:00* Test Item Value Reference Range Interpretation Comments Monocytes (%) (Auto) (test code = 5905-5) 7.0 4.4-11.3 [facility] CenterEosinophils (%) (Auto)2018-05-26 06:10:00 * Test Item Value Reference Range Interpretation Comments Eosinophils (%) (Auto) (test code = 713-8) 2.6 0.0-6.0 [facility] CenterBasophils (%) (Auto)2018-05-26 06:10:00* Test Item Value Reference Range Interpretation Comments Basophils (%) (Auto) (test code = 706-2) 0.4 0.0-1.0 [facility] CenterIM GRANULOCYTES %2018-05-26 06:10:00* Test Item Value Reference Range Interpretation Comments IM GRANULOCYTES % (test code = IM GRANULOCYTES %) 0.2 0.0- 1.0 [facility] CenterNeutrophils # (Auto)2018-05-26 06:10:00* Test Item Value Reference Range Interpretation Comments Neutrophils # (Auto) (test code = 751-8) 10.1 2.1-6.9 H [facility] CenterLymphocytes # (Auto)2018-05-26 06:10:00* Test Item Value Reference Range Interpretation Comments Lymphocytes # (Auto) (test code = 29804-3) 0.8 1.0-3.2 L [facility] CenterMonocytes # (Auto)2018-05-26 06:10:00* Test Item Value Reference Range Interpretation Comments Monocytes # (Auto) (test code = 742-7) 0.8 0.2-0.8 [facility] CenterEosinophils # (Auto)2018-05-26 06:10:00* Test Item Value Reference Range Interpretation Comments Eosinophils # (Auto) (test code = 711-2) 0.3 0.0-0.4 [facility] CenterBasophils # (Auto)2018-05-26 06:10:00* Test Item Value Reference Range Interpretation Comments Basophils # (Auto) (test code = 704-7) 0.1 0.0-0.1 [facility] CenterAbsolute Immature Granulocyte (auto 2018-05-26 06:10:00* Test Item Value Reference Range Interpretation Comments Absolute Immature Granulocyte (auto (jeffery t code = Absolute Immature Granulocyte (auto) 0.03 0-0.1 [facility] CenterPhosphorus Ggozv0985-68-02 05:59:00* Test Item Value Reference Range Interpretation Comments Phosphorus Level (test code = CWM5895) 3.2 2.3-4.7 [facility] CenterTotal Pprcjbsaa0441-19-62 05:59:00* Test Item Value Reference Range Interpretation Comments Total Bilirubin (test code = 1975-2) 0.3 0.2-1.2 [facility] CenterAspartate Amino Transf (AST/SGOT) 2018-05-26 05:59:00* Test Item Value Reference Range Interpretation Comments Aspartate Amino Transf (AST/SGOT) (test code = Aspartate Amino Transf (AST/SGOT)) 29 5-34 [facility] CenterAlanine Aminotransferase (ALT/SGPT) 2018-05-26 05:59:00* Test Item Value Reference Range Interpretation Comments Alanine Aminotransferase (ALT/SGPT) (test code = 1742-6) 35 0-55 [facility] CenterTotal Zebosjp0999-89-36 05:59:00* Test Item Value Reference Range Interpretation Comments Total Protein (test code = 2885-2) 6.1 6.5-8.1 L [facility] CenterAlbumin2018-09-14 05:59:00* Test Item Value Reference Range Interpretation Comments Albumin (test code = 1751-7) 2.8 3.5-5.0 L [facility] CenterGlobulin2018-09-14 05:59:00* Test Item Value Reference Range Interpretation Comments Globulin (test code = 67274-8) 3.3 2.3-3.5 [facility] CenterAlbumin/Globulin Niltt2703-05-54 05:59:00 * Test Item Value Reference Range Interpretation Comments Albumin/Globulin Ratio (test code = 1759-0) 0.8 0.8-2.0 [facility] CenterAlkaline Xbxqkkrcvqa1453-91-72 05:59:00* Test Item Value Reference Range Interpretation Comments Alkaline Phosphatase (test code = 6768-6) 152 40-150 H [facility] CenterCT ABDOMEN LT7593-95-66 20:50:00 [place] [address] Patient Name: JOVANY WELLINGTON MR #: [id number] : 1960 Age/Sex: 57/M Req #: [id number] Adm Physician: DENIZ BENDER MD Ordered by: PASQUALE WHITE, AVA WHITE Report #: [id number] Loc ation: ICU Room/Bed: [place] [address] Procedure: C T/CT ABDOMEN WO Exam Date: Exam Time: REPORT STATUS: Signed CT Abdomen Unenhanced CPT CODE: 88025 INDICATION: I leus TECHNIQUE: 5 mm collimation axial images obtained from lung base to il iac crest without intravenous or oral contrast. RADIATION DOSE: To jennifer DLP: 567.95 mGy*cm Estimated effective dose: (DLP x 0.015 x size fac tor) mSv CTDIvol has been reviewed. It is below the limits set by the Rad iation Protocol Committee (RPC). Comparison: Abdomen x-ray 0942 hours. FINDINGS: Lung bases: Clear. Visualized portion of the mediastinum is no rmal. Liver: Decreased attenuation consistent with steatosis. The right lob e measures 17 cm in craniocaudal dimension. No evidence of mass. Gallblad cristiano: Present. No wall thickening, gallstone or ductal dilatation.. Pancrea s: Diffuse fatty atrophy. No mass or ductal dilatation. Spleen: Measures 13 cm. No mass. Adrenal Glands: No evidence for mass.. Kidneys: Ri ght kidney: Hyperdense lesion in the posterior interpolar region measures 12 m m and abuts the renal sinus fat. No intrarenal calculi. No hydronephrosis. Left kidney: No mass or calculus. No hydronephrosis. Bowel: Stomach: Col lapsed. Small bowel: Visualized portions of the small bowel are normal in diam eter with normal wall thickness. Large bowel: Gaseous distention of the righ t colon and transverse colon. The distal transverse colon measures 6.2 cm in d iameter. The right colon measures 7.9 cm in diameter and contains fluid as wel l as air. The descending colon measures 4.5 cm in diameter. There is gaseous d istention at the top of the sigmoid colon as it turns midline. No pneumatosis. No diverticulosis. No pericolonic inflammation. Aorta: Normal in diamete r. Lymph Nodes: No lymphadenopathy. No free fluid or fluid collection. No free air. Bones: Moderate degenerative changes of the upper lumbar spin e. No lytic or blastic lesions. Soft tissues: Unremarkable. IMPRESSI ON: 1. Gaseous distention of the large bowel extending to the sigmoid colo n. The etiology cannot be determined due to incomplete imaging of the entire c olon. 2. No small bowel dilatation on this exam. 3. Hepatic steatosis and mild hepatomegaly. 4. Hyperdense mass in the right kidney should be ev aluated with contrast-enhanced CT dedicated to the kidneys. Signed by: Dr Juanito Beaulieu MD on 05/25/2018 8:56 PM Dictated By: MELANY CEBALLOS MD 55 Transcri bed By: LESLI on 05/25/182055 COPY TO: AVA GIORDANO ABDOMEN- 1VIEW (KUB)2018-05-25 15:12:00 [place] [address] Patient Name: JOVANY WELLINGTON MR #: [id number] : 1960 Age/Sex: 57/M Req #: [id number] Adm Physician: DENIZ BENDER MD Ordered by: DENIZ BENDER MD Report #: [id number] Location: ICU Room/Bed: ICU [facility] Procedure: [id number] D X/ABDOMEN-1VIEW (KUB) Exam Date: 05/25/18 Exam Time: 957 REPORT STATUS: Signed EXAM: Abdomen 2 Views INDICATION: COMPARISON: Renal ultrasound 05/22/2018 FINDINGS: Mild amount of stool in the colon. Mildly distended colon. No air within the rectum. No di lated loops of small bowel. No renal calculi. No abnormal soft tissue masses. Mild degenerative changes in the lumbar spine and pelvis. IMPR ESSION: Mildly distended loops of colon with nondilated loops of the small bow el remains indeterminate for bowel obstruction. Signed by: Dr. Mylene eDgroot M.D. on 05/25/2018 3:14 PM Dictated By: MYLENE YADAV MD 13 Transcribed By: LESLI on 05/25/181513 COPY TO: DENIZ BENDER MD Clostridium Difficile Toxin A & V9580-36-23 14:47:00* Test Item Value Reference Range Interpretation Comments Clostridium Difficile Toxin A & B (test code = 464625027) NEGATIVE NEGATIVE Testing on stool aspirate specimens is outside skein bander claims since specime n type not validated on this assay.[facility] [place] Wqyar7030-33-09 11:29:00* Test Item Value Reference Range Interpretation Comments [place] Level (test code = 06159-1) 1.0 Reference Range:0.4-1.2 mmol/LTests performed by [facility] .[facility] CenterNON-TUNNELLED CVC CATH EVDGLUJ7461-61-40 07:46:00 [facility] [address] [place] [address] Patient Name: JOVANY WELLINGTON MR #: [id number] : 1960 Age/Sex: 57/M Req #: [id number] Adm Physician: DENIZ BENDER MD Ordered by: SHERLEY ROLLINS MD Report #: [id number] Location: ICU Room/Bed: ICU [facility] Procedure: [id number] IR /NON-TUNNELLED CVC CATH PLACMNT Exam Date: 05/22/18 Exam Time: 1645 REPORT STATUS: Signed Date and Time: 05/22/2018 Pro cedure: Temporary hemodialysis catheter placement, right internal jugular appr [facility] bread wrapper operator: Dr. Payan Pre-operative diagnosis: Acute kid skyler injury Post-operative diagnosis: Acute kidney injury Conscious Sedati on: None The patient's heart rate and pulse oximetry were continuously monitor ed by the ICU nurse. Blood pressure was monitored at 5 minute intervals. Additional Medications: Lidocaine 1% for local anesthesia Fluoroscopy time: 8 seconds Dose-area Product: 108.8 cGycm2. Frontal Air Kerma: 6.72 mGy Co ntrast used: None Estimated blood loss: Minimal Blood products administered: None Specimens: None Implants: 13 [place] 15 cm high flow central venous ca theter DISCUSSION: Informed consent was obtained and documented in the medical record. The patient was placed in the supine position on the op erating table. Preliminary sonographic evaluation of the right internal jugula r vein confirmed patency evidenced by compressibility. The right neck was prepped and draped in the standard sterile fashion. 1% lidocaine was infiltra myron into the skin and subcutaneous tissues for local anesthesia. Then under co ntinuous sonographic guidance an 18-gauge singlewall needle was used to access the right internal jugular vein. A permanent sonographic image was stored. A 0.0 3 5-in. J-wire was advanced centrally with continuous cardiac rhythm monitoring. The needle was removed over the wire and the tract was dilated. A 13 [place] 15 cm triple-lumen hi flow central venous catheter was then advanced over the wire to full depth. The wire was removed and the catheter tip was po sitioned in the low superior vena cava under fluoroscopy. Each lumen showed ad equate bidirectional flow and was flushed with sterile saline. The catheter wa s secured to the skin with monofilament nylon suture and a sterile dressing wa s applied. The patient tolerated the procedure well without immediate complica tion. FINDINGS: Patent right internal jugular vein. IMPRESSION: Successful placement of a 13 [place], 15 cm triple-lumen hi flow central venous catheter by a right internal jugular approach under sonographic and fluoros copic guidance. Signed by: Dr. Batsheva Payan M.D. on 05/24/2018 7:50 AM Dictated By: BATSHEVA PAYAN MD 9 Transcribed By: LESLI on 05/24/18 075 COPY TO: SHERLEY VELA MD IR DUDJAQI0900-91-40 07:46:00 [place] [address] Patient Name: JOVANY WELLINGTON MR #: [id number] : 1960 Age/Sex: 57/M Req #: [id number] Adm Physician: DENIZ BENDER MD Ordered by: SHERLEY ROLLINS MD Report #: [id number] Location: ICU Room/Bed: ICU [facility] Procedure: [id number] DX /IR CONSULT Exam Date: Exam Time: REPORT STA TUS: Signed Date and Time: 05/22/2018 Procedure: Temporary hemodialysis c atheter placement, right internal jugular approach bread wrapper operator: Dr. Payan Pre-operative diagnosis: Acute kidney injury Post-operative diag nosis: Acute kidney injury Conscious Sedation: None The patient's heart r ate and pulse oximetry were continuously monitored by the ICU nurse. Blood pr essure was monitored at 5 minute intervals. Additional Medications: Lidocai ne 1% for local anesthesia Fluoroscopy time: 8 seconds Dose-area Product: 108.8 cGycm2. Frontal Air Kerma: 6.72 mGy Contrast used: None Estimated bl ood loss: Minimal Blood products administered: None Specimens: None Impla nts: 13 [place] 15 cm high flow central venous catheter DISCUSSION: Informed consent was obtained and documented in the medical record. The pat ient was placed in the supine position on the operating table. Preliminary son ographic evaluation of the right internal jugular vein confirmed patency evide nced by compressibility. The right neck was prepped and draped in the stand jorge sterile fashion. 1% lidocaine was infiltrated into the skin and subcutaneo us tissues for local anesthesia. Then under continuous sonographic guidance an 18-gauge singlewall needle was used to access the right internal jugular vein . A permanent sonographic image was stored. A 0.0 3 5-in. J-wire was adva nced centrally with continuous cardiac rhythm monitoring. The needle was remov ed over the wire and the tract was dilated. A 13 [place] 15 cm triple-lumen hi flow central venous catheter was then advanced over the wire to full depth. Th e wire was removed and the catheter tip was positioned in the low superior mayte a cava under fluoroscopy. Each lumen showed adequate bidirectional flow and wa s flushed with sterile saline. The catheter was secured to the skin with monof ilament nylon suture and a sterile dressing was applied. The patient tolerated the procedure well without immediate complication. FINDINGS: Paten t right internal jugular vein. IMPRESSION: Successful placement of a 13 F rench, 15 cm triple-lumen hi flow central venous catheter by a right internal jugular approach under sonographic and fluoroscopic guidance. Signed by: Dr. Batsheva Payan M.D. on 05/24/2018 7:50 AM Dictated By: BATSHEVA TEIXEIRA MD 9 Transcribed By: LESLI on 05/24/18749 COPY TO: SHERLEY ROLLINS MD US GUIDANCE FOR VASCULAR NPDNP2314-57-46 07:46:00 [place] [address] Patient Name: JOVANY WELLINGTON MR #: [id number] : 1960 Age/Sex: 57/M Req #: [id number] Adm Physician: DENIZ BENDER MD Ordered by: SHERLEY ROLLINS MD Report #: [id number] Location: ICU Room/Bed: [place] [address] Procedure: [id number] US /US GUIDANCE FOR VASCULAR ACCES Exam Date: 05/22/18 Exam Time: 1806 REPORT STATUS: Signed Date and Time: 05/22/2018 Pro cedure: Temporary hemodialysis catheter placement, right internal jugular appr [facility] bread wrapper operator: Dr. Payan Pre-operative diagnosis: Acute kid skyler injury Post-operative diagnosis: Acute kidney injury Conscious Sedati on: None The patient's heart rate and pulse oximetry were continuously monitor ed by the ICU nurse. Blood pressure was monitored at 5 minute intervals. Additional Medications: Lidocaine 1% for local anesthesia Fluoroscopy time: 8 seconds Dose-area Product: 108.8 cGycm2. Frontal Air Kerma: 6.72 mGy Co ntrast used: None Estimated blood loss: Minimal Blood products administered: None Specimens: None Implants: 13 [place] 15 cm high flow central venous ca theter DISCUSSION: Informed consent was obtained and documented in the medical record. The patient was placed in the supine position on the op erating table. Preliminary sonographic evaluation of the right internal jugula r vein confirmed patency evidenced by compressibility. The right neck was prepped and draped in the standard sterile fashion. 1% lidocaine was infiltra myron into the skin and subcutaneous tissues for local anesthesia. Then under co ntinuous sonographic guidance an 18-gauge singlewall needle was used to access the right internal jugular vein. A permanent sonographic image was stored. A 0.0 3 5-in. J-wire was advanced centrally with continuous cardiac rhythm monitoring. The needle was removed over the wire and the tract was dilated. A 13 [place] 15 cm triple-lumen hi flow central venous catheter was then advanced over the wire to full depth. The wire was removed and the catheter tip was po sitioned in the low superior vena cava under fluoroscopy. Each lumen showed ad equate bidirectional flow and was flushed with sterile saline. The catheter wa s secured to the skin with monofilament nylon suture and a sterile dressing wa s applied. The patient tolerated the procedure well without immediate complica tion. FINDINGS: Patent right internal jugular vein. IMPRESSION: Successful placement of a 13 [place], 15 cm triple-lumen hi flow central venous catheter by a right internal jugular approach under sonographic and fluoros copic guidance. Signed by: Dr. Batsheva Payan M.D. on 05/24/2018 7:50 AM Dictated By: BATSHEVA PAYAN MD 9 Transcribed By: LESLI on 05/24/18749 COPY TO: SHERLEY VELA MD FLUORO GUIDANCE [facility] MAYTE /[id number] 07:46:00 [place] [address] Patient Name: JOVANY WELLINGTON MR #: [id number] : 1960 Age/Sex: 57/M Req #: [id number] Adm Physician: DENIZ BENDER MD Ordered by: SHERLEY ROLLINS MD Report #: [id number] Loca tion: ICU Room/Bed: [place] [address] Procedure: [id number] DX /FLUORO GUIDANCE [address]/REM Exam Date: 05/22/18 Exam Time: 1300 REPORT STATUS: Signed Date and Time: 05/22/2018 Pro cedure: Temporary hemodialysis catheter placement, right internal jugular appr [facility] bread wrapper operator: Dr. Payan Pre-operative diagnosis: Acute kid skyler injury Post-operative diagnosis: Acute kidney injury Conscious Sedati on: None The patient's heart rate and pulse oximetry were continuously monitor ed by the ICU nurse. Blood pressure was monitored at 5 minute intervals. Additional Medications: Lidocaine 1% for local anesthesia Fluoroscopy time: 8 seconds Dose-area Product: 108.8 cGycm2. Frontal Air Kerma: 6.72 mGy Co ntrast used: None Estimated blood loss: Minimal Blood products administered: None Specimens: None Implants: 13 [place] 15 cm high flow central venous ca theter DISCUSSION: Informed consent was obtained and documented in the medical record. The patient was placed in the supine position on the op erating table. Preliminary sonographic evaluation of the right internal jugula r vein confirmed patency evidenced by compressibility. The right neck was prepped and draped in the standard sterile fashion. 1% lidocaine was infiltra myron into the skin and subcutaneous tissues for local anesthesia. Then under co ntinuous sonographic guidance an 18-gauge singlewall needle was used to access the right internal jugular vein. A permanent sonographic image was stored. A 0.0 3 5-in. J-wire was advanced centrally with continuous cardiac rhythm monitoring. The needle was removed over the wire and the tract was dilated. A 13 [place] 15 cm triple-lumen hi flow central venous catheter was then advanced over the wire to full depth. The wire was removed and the catheter tip was po sitioned in the low superior vena cava under fluoroscopy. Each lumen showed ad equate bidirectional flow and was flushed with sterile saline. The catheter wa s secured to the skin with monofilament nylon suture and a sterile dressing wa s applied. The patient tolerated the procedure well without immediate complica tion. FINDINGS: Patent right internal jugular vein. IMPRESSION: Successful placement of a 13 [place], 15 cm triple-lumen hi flow central venous catheter by a right internal jugular approach under sonographic and fluoros copic guidance. Signed by: Dr. Batsheva Payan M.D. on 05/24/2018 7:50 AM Dictated By: BATSHEVA PAYAN MD 9 Transcribed By: LESLI on 05/24/18749 COPY TO: SHERLEY VELA MD Hepatitis B Surface Antibody, Imqhm4552-51-31 05:21:00* Test Item Value Reference Range Interpretation Comments Hepatitis B Surface Antibody, Quant (test code = 5194-6) -3.1 Immunity>9.9 L Status of Immunity Anti-HBs Level Inconsistent with Immunity 0.0 - 9.9Consistent with Immunity >9.9[facility] B Surface Skzrsrc6718-35-86 05:21:00* Test Item Value Reference Range Interpretation Comments Hepatitis B Surface Antigen (test code = 5196-1) Negative Negat leia [facility] B Core IgM Byvydaik3072-30-03 05:21:00* Test Item Value Reference Range Interpretation Comments Hepatitis B Core IgM Antibody (test code = 11735-5) Negative Ne gative Performed at: - [facility] [id number] Director: Fran Ellison MD, Phone: [phone] Vista Medical CenterTriglycerides Ejuym3951-07-70 05:43:00* Test Item Value Reference Range Interpretation Comments Triglycerides Level (test code = 2571-8) 297 0-149 H [facility] CenterCholesterol Raokf6030-44-05 05:43:00* Test Item Value Reference Range Interpretation Comments Cholesterol Level (test code = 2093-3) 128 0-199 Less than 200 mg/dL Low Pyva002 - 239 mg/dL Borderline Fbte093 m g/dl and greater High Risk [facility] CenterLDL Ekhuxmejgnk8550-86-82 05:43:00* Test Item Value Reference Range Interpretation Comments LDL Cholesterol (test code = 2089-1) 42 60-130 L [facility] CenterHDL Ozgjkpkbluz2748-61-25 05:43:00* Test Item Value Reference Range Interpretation Comments HDL Cholesterol (test code = 2085-9) 27 40-60 L [facility] CenterCholesterol/HDL Gvavf4203-00-36 05:43:00 * Test Item Value Reference Range Interpretation Comments Cholesterol/HDL Ratio (test code = 9830-1) 4.7 3.9-4.7 [facility] CenterCreatine Jkuaaf2042-59-61 05:14:00* Test Item Value Reference Range Interpretation Comments Creatine Kinase (test code = 2157-6) 191 30-200 [facility] CenterCreatine Kinase [id number] 05:14:00* Test Item Value Reference Range Interpretation Comments Creatine Kinase MB (test code = 68229-4) 1.30 0-5.0 [facility] CenterTroponin [id number] 05:14:00* Test Item Value Reference Range Interpretation Comments Troponin I (test code = RZQ1646) 0.001 0-0.300 [facility] CenterLactic Acid Lezpb0849-28-07 23:50:00* Test Item Value Reference Range Interpretation Comments Lactic Acid Level (test code = Lactic Acid Level) 6.5 4.5- 19.8 [facility] CenterUS RENAL RETROPERITONEAL TGKI9308-06-29 19:57:00 [facility] [address] [place] [address] Patient Name: JOVANY WELLINGTON MR #: [id number] : 1960 Age/Sex: 57/M Req #: [id number] Adm Physician: DENIZ BENDER MD Ordered by: PASQUALE WHITE, AVA WHITE Report #: [id number] Location: [facility] [place] Room/Bed: [place] [address] Procedure: [id number] US/US RENAL RETROPERITONEAL COMP Exam Date: 05/22/18 Exam Time: 1915 REPORT STATUS: Signed Retroperitoneal ultrasound idalia sanches CPT code: 76154 Indication: Acute kidney injury. Technique: S elect images from retroperitoneal ultrasound provided for INTERPRETATION:. Comparison: None Findings: The right kidney measures 12.7 cm in g reatest length. The echotexture is increased. There is no evidence for mass. There is no collecting system dilatation or evidence of obstruction. No renal calculi evident. No adjacent free fluid or fluid collections. The left kidney measures 13.6 cm in greatest length. The echotexture is increased. The re is no evidence for mass. There is no collecting system dilatation or eviden ce of obstruction. No renal calculi evident. No adjacent free fluid or fluid c ollections. Bladder collapsed around a Lewis catheter. No pelvic free fluid. Visualized portions of the liver demonstrate no focal abnormality. The echotexture of the liver is increased suggestive of steatosis. IMPRES HILARIA: Increased renal echotexture suggestive of medical renal disease. No hydronephrosis. Signed by: Dr. Melany Beaulieu MD on 05/22/2018 8:01 PM Dictated By: MELANY BEAULIEU MD 00 Transcribed By: LESLI on 05/22/182000 COPY T O: AVA GIORDANO Uric Muev2476-33-16 18:36:00* Test Item Value Reference Range Interpretation Comments Uric Acid (test code = 3084-1) 10.4 4.8-8.0 H [facility] QO9427-04-18 17:34:00 [facility] [address] [place] [address] Patient Name: JOVANY WELLINGTON MR #: [id number] : 1960 Age/Sex: 57/M Req #: [id number] Adm Physician: Ordered by: SHERLEY ROLLINS MD Report #: [id number] Location: ER Room/Be d: Procedure: [id number] CT/CT BRAIN WO Exam Date: Exam Time: 1515 REPORT STATUS: Signed History: Weakness, G Comparison studies: None Technique: Axial images were obtained from the skull base to the vertex. Coronal and sagittal reconstructions obtained from the axial data. Dose modulation, iterative melody nstruction, and/or weight based adjustment of the mA/kV was utilized to reduc e the radiation dose to as low as reasonably achievable. Findings: Scalp/skull: No abnormalities. No fractures, blastic or lytic lesions. E xtra-axial spaces: No masses. No fluid collections. Brain sulci: Approp riate for age. Ventricles: Normal in size and configuration. No hydrocephalus. Parenchyma: No abnormal densities. No masses, hemorrhage, acute or c hronic cortical vascular insults. Sellar/suprasellar region: No abnormaliti es Craniocervical junction: Patent foramen magnum. No Chiari one malformation . IMPRESSION: No abnormalities. Signed by: Dr. Husam Vazquez M.D. on 05/22/2018 5:35 PM Dictated By: HUSAM VAZQUEZ MD, MD Elec tronically Signed By: HUSAM VAZQUEZ MD, MD on 05/22/181734 Transcribed B y: LESLI on 05/22/181734 COPY TO: SHERLEY ROLLINS MD CHEST SINGLE (PORTABLE)2018-05-22 16:53:00 [place] [address] Patient Name: JOVANY WELLINGTON MR #: [id number] : 1960 Age/Sex: 57/M Req #: [id number] Adm Physician: Ordered by: SHERLEY ROLLINS MD Report #: [id number] Location: ER Room/Bed: Procedure: [id number] DX/CHEST SINGLE (PORTABLE) E xa Date: 05/22/18 Exam Time: 1515 REPORT STATU S: Signed EXAMINATION: CHEST SINGLE (PORTABLE) INDICATION: Weakness and altered mental status. COMPARISON: None FINDINGS : AP view TUBES and LINES: None. LUNGS: Limited by body habitus and low lung volumes. There is no evidence of pneumonia or pulmonary ed gabo. PLEURA: No significant pleural effusion or pneumothorax. HEART A ND MEDIASTINUM: The cardiomediastinal silhouette is unremarkable. BONE S AND SOFT TISSUES: No acute osseous lesion. Soft tissues are unremarkable. UPPER ABDOMEN: No free air under the diaphragm. IMPRESSION: No definite evidence of acute thoracic abnormality, considering limitations of e study. Signed by: Dr. Aldair Gallo MD on 05/22/2018 4:53 PM Di ctated By: ALDAIR GALLO MD 6146 COPY TO: SHERLEY ROLLINS MD Urine [id number] 16:17:00* Test Item Value Reference Range Interpretation Comments Urine WBC (test code = 5821-4) 0-5 0-5 [facility] CenterU[facility] [id number] 16:17:00* Test Item Value Reference Range Interpretation Comments Urine RBC (test code = 31421-7) 0-5 0-5 [facility] CenterU[facility] Fralfwik8807-25-33 16:17:00* Test Item Value Reference Range Interpretation Comments Urine Bacteria (test code = 65801-7) RARE NONE [facility] CenterU[facility] Epithelial Tmxso5766-27-35 16:17:00 * Test Item Value Reference Range Interpretation Comments Urine Epithelial Cells (test code = 32226-3) RARE NONE [facility] CenterU[facility] Ammonium Biurate Nhpoifxa9697-84-55 16:17:00* Test Item Value Reference Range Interpretation Comments Urine Ammonium Biurate Crystals (test code = 5766-1) FEW N ONE H [facility] CenterUrine Opiates Xlvaav1978-29-40 16:08:00* Test Item Value Reference Range Interpretation Comments Urine Opiates Screen (test code = 23334-9) POSITIVE NEGATIVE H This test provides only a screen. Positive results should be repeated by a confi rmatory test.[facility] CenterUrine Barbiturates Screen 2018-05-22 16:08:00* Test Item Value Reference Range Interpretation Comments Urine Barbiturates Screen (test code = 388488176) NEGATIVE NEGA TIVE [facility] CenterU[facility] Phencyclidine Cycbys8915-57-45 16:08:00* Test Item Value Reference Range Interpretation Comments Urine Phencyclidine Screen (test code = 14022-3) NEGATIVE NEGAT LEIA [facility] CenterUrine Amphetamines Cfqxex3729-74-77 16:08:00* Test Item Value Reference Range Interpretation Comments Urine Amphetamines Screen (test code = 36835-7) NEGATIVE NEGATI VE [facility] CenterU[facility] Methamphetamines Dgcdgy7379-26-08 16:08:00* Test Item Value Reference Range Interpretation Comments Urine Methamphetamines Screen (test code = Urine Metha mphetamines Screen) NEGATIVE NEGATIVE [facility] Center[facility] Benzodiazepines Jhbstt9071-01-64 16:08:00* Test Item Value Reference Range Interpretation Comments Urine Benzodiazepines Screen (test code = 26164-5) NEGATIVE NEG ATIVE [facility] CenterU[facility] Cocaine Qpcwpk4578-47-72 16:08:00* Test Item Value Reference Range Interpretation Comments Urine Cocaine Screen (test code = 3398-5) NEGATIVE NEGATIVE [facility] CenterU[facility] Cannabinoids Csvgji0996-25-78 16:08:00* Test Item Value Reference Range Interpretation Comments Urine Cannabinoids Screen (test code = 90902-8) NEGATIVE NEGATI VE THESE RESULTS ARE FOR MEDICAL TREATMENT ONLYTHIS REPORT CONTAINS UNCONFIR MED SCREENING RESULTS*POSITIVE RESULTS WILL BE CONFIRMED BY REFERENCE LAB UPON R EQUEST CUT-OFFDRUG CLASS CONCENTRATION ng/mLAmphetamines 1000Methamphetamines 1000Cocaine 300Opiate 300Phencyc lidine 25Cannabinoid 50Barbiturates 300Benzodiazepine 300Methadone 300[facility] Skzxi4405-86-83 16:04:00* Test Item Value Reference Range Interpretation Comments Urine Color (test code = 5778-6) YELLOW YELLOW [facility] Center[facility] Mcxmdjk1989-57-79 16:04:00* Test Item Value Reference Range Interpretation Comments Urine Clarity (test code = 25944-2) CLEAR CLEAR [facility] CenterU[facility] Specific Uuitohh4088-46-73 16:04:00 * Test Item Value Reference Range Interpretation Comments Urine Specific [place] (test code = 5811-5) 1.020 1.010-1.02 5 [facility] CenterU[facility] [id number] 16:04:00* Test Item Value Reference Range Interpretation Comments Urine pH (test code = 15879-2) 5 5-7 [facility] Center[facility] Leukocyte Whmmoukv1598-61-46 16:04:00* Test Item Value Reference Range Interpretation Comments Urine Leukocyte Esterase (test code = 5799-2) NEGATIVE NEGATIVE [facility] CenterU[facility] Itmxvis6065-97-90 16:04:00* Test Item Value Reference Range Interpretation Comments Urine Nitrite (test code = 48470-3) NEGATIVE NEGATIVE [facility] Center[facility] Kccqpde4980-39-65 16:04:00* Test Item Value Reference Range Interpretation Comments Urine Protein (test code = 5804-0) NEGATIVE NEGATIVE [facility] Center[facility] Glucose (UA)2018-05-22 16:04:00* Test Item Value Reference Range Interpretation Comments Urine Glucose (UA) (test code = 2349-9) NEGATIVE NEGATIVE [facility] CenterU[facility] Pjexejs2951-85-76 16:04:00* Test Item Value Reference Range Interpretation Comments Urine Ketones (test code = 47507-8) NEGATIVE NEGATIVE [facility] CenterU[facility] Qujuijduqzkx1417-58-33 16:04:00* Test Item Value Reference Range Interpretation Comments Urine Urobilinogen (test code = 90419-1) 0.2 0.2-1 [facility] Center[facility] Ztkotvbsk5150-83-19 16:04:00* Test Item Value Reference Range Interpretation Comments Urine Bilirubin (test code = 1978-6) NEGATIVE NEGATIVE [facility] Center[facility] Ycjwu8863-84-23 16:04:00* Test Item Value Reference Range Interpretation Comments Urine Blood (test code = 04573-0) 1+ NEGATIVE H [facility] CenterThyroid Stimulating Hormone (TSH) 2018-05-22 15:23:00* Test Item Value Reference Range Interpretation Comments Thyroid Stimulating Hormone (TSH) (test code = 85831-4) 3.324 0.350-4.940 [facility] CenterAcetaminophen Lkkcp7624-81-31 15:01:00* Test Item Value Reference Range Interpretation Comments Acetaminophen Level (test code = 34494-6) -3 10-[address] [facility]alicyl[facility] Hzzzf6908-53-70 15:01:00* Test Item Value Reference Range Interpretation Comments Salicylates Level (test code = 4024-6) -5.0 0-30 [facility] CenterProthrombin Vuuy0595-22-98 14:52:00* Test Item Value Reference Range Interpretation Comments Prothrombin Time (test code = 5902-2) 14.2 11.9-14.5 [facility] CenterProthromb Time International Ratio 2018-05-22 14:52:00* Test Item Value Reference Range Interpretation Comments Prothromb Time International Ratio (test code = 6301-6) 1.19 Oral Anticoagulant Therapy INR Values:1. Low Intensity Therapy 1.5 - 2.02 . Moderate Intensity Therapy 2.0 - 3.03. High Intensity Therapy(1) 2.5 - 3. 54. High Intensity Therapy(2) 3.0 - 4.05. Panic Value INR > 5.0 [facility] CenterActivated Partial Thromboplast Time 2018-05-22 14:52:00* Test Item Value Reference Range Interpretation Comments Activated Partial Thromboplast Time (test code = 66513-7) 32.5 23.8-35.5 [facility] CenterAmmonia2018-09-10 14:51:00* Test Item Value Reference Range Interpretation Comments Ammonia (test code = 32158-8) 37 31-123 [facility]
[2020-02-11] MEDS ORDERED: IBUPROFEN 600 MG TAB PO STA (15:00)
--- NOTE | 2020-02-11 16:02 | Diagnostic Imaging Report ---
EXAM: CHEST SINGLE (PORTABLE) DATE: 02/11/2020 3:32 PM INDICATION: Fever, chills COMPARISON: 05/22/2018 FINDINGS: Please note that the examination is limited secondary to the patient's body habitus. The trachea is midline. The lungs are symmetrically expanded without evidence for large focal consolidation, pneumothorax, or significant pleural effusion. The cardiomediastinal silhouette is stable in appearance. The pulmonary vasculature is not engorged. No acute osseous abnormality is identified. The surrounding soft tissues are unremarkable. IMPRESSION: No acute cardiopulmonary process identified. Signed by: Dr. Calos Aragon MD on 02/11/2020 3:59 PM
[2020-02-11 16:12] LABS: BASOPHILS % 0.2 % (0.0-1.0); EOSINOPHILS # (AUTO) 0.1 (0.0-0.4); EOSINOPHILS % 0.4 % (0.0-6.0); HEMOGLOBIN 14.4 g/dL (14.0-18.0); LYMPHOCYTES # (AUTO) 0.4 (1.0-3.2); LYMPHOCYTES % 2.7 % (18.0-39.1); MEAN CORPUSCULAR HEMOGLOBIN 29.4 pg (28-32); MEAN CORPUSCULAR HGB CONC 32.7 g/dL (31-35); MEAN CORPUSCULAR VOLUME 89.8 fL (81-99); MONOCYTES # (AUTO) 0.4 (0.2-0.8); MONOCYTES % 3.3 % (4.4-11.3); NEUTROPHILS # (AUTO) 12.2 (2.1-6.9); PLATELET COUNT 135 x10e3/uL (140-360); RED CELL DISTRIBUTION WIDTH 12.8 % (11.7-14.4)
[2020-02-11 16:29] LABS: ALANINE AMINOTRANSFERASE 50 IU/L (0-55); ALBUMIN 4.3 g/dL (3.5-5.0); ALBUMIN/GLOBULIN RATIO 1.2 (0.8-2.0); ALKALINE PHOSPHATASE 137 IU/L (40-150); ANION GAP 17.8 mmol/L (8-16); BLOOD UREA NITROGEN 32 mg/dL (7-26); BUN/CREATININE RATIO 16 (6-25); CALCIUM 9.7 mg/dL (8.4-10.2); CARBON DIOXIDE 23 mmol/L (22-29); CHLORIDE 102 mmol/L (98-107); CREATINE KINASE 164 IU/L (30-200); CREATININE, SERUM 2.02 mg/dL (0.72-1.25); EST GLOMERULAR FILTRATION RATE 34 ML/MIN (60-); GLUCOSE 152 mg/dL (74-118); POTASSIUM 3.8 mmol/L (3.5-5.1); SODIUM 139 mmol/L (136-145)
--- NOTE | 2020-02-11 16:54 | NUR ---
Report and care handoff given to MAYCOL Ta.
--- OUTSIDE RECORDS SUMMARY | 2020-02-11 17:00 | XMS REPORT | Continuity of Care Document ---
Author Author [facility] t Organization [facility] Address [address] [place] [address] Phone Unavailable Care Team Providers Care Professor Of History Name Role Phone NONSTAFF PCP Unavailable Yayo WATTS Attphys Unavailable Hattie MONZON Attphys Unavailable BENDER, SOUHEIL Attphys Unavailable BENDER, SOUHEIL Admphys Unavailable Payers Payer Name Policy Type Policy Number Effective Date Expiration Date Yayo [place] Medicare A & B NA 2007 00:00:00 C [facility] Miscellaneous Ppo NA [facility] Problems Condition Name Condition Details Condition Category Status Onset Date Resolution Date Last Treatment Date Treating Clinician Comments Source Altered mental status Altered mental status Problem Active [facility] Cellulitis Cellulitis Problem Active [facility] Renal failure Renal failure Problem Active [facility] Sepsis Sepsis Problem Active [facility] Uremia Uremia Problem Active [facility] Allergies, Adverse Reactions, Alerts This patient has no known allergies or adverse reactions. Social History Social Habit Start Date Stop Date Quantity Comments Source Sex Assigned At 1960 00:00:00 1960 00:[birth year]:00 Male [facility] Medications Ordered Medication Name Filled Medication Name Start Date Stop Da te Current Medication? Ordering Clinician Indication Dosage Frequency Signature (SIG) Comments Components Source Allopurinol Allopurinol Yes 100 Daily [facility] Amlodipine Besylate Amlodipine Besylate Yes 10 Daily [facility] Aripiprazole (Abilify) 30 Mg TABLET Aripiprazole (Abilify) 30 Mg TABL ET Yes 30 Daily [facility] Aspirin (Aspir 81) 81 Mg TABLET. Aspirin (Aspir 81) 81 Mg TABLET. Yes Daily [facility] Atorvastatin Calcium Atorvastatin Calcium Yes 40 Bedtime [facility] Cholecalciferol (Vitamin D3) (Vitamin D) 400 Unit CAPS ULE Cholecalciferol (Vitamin D3) (Vitamin D) 400 Unit CAPSULE Yes 800 Daily [facility] Citalopram Hydrobromide (Citalopram Hbr) 20 Mg TABLET Citalopram Hydrobromide (Citalopram Hbr) 20 Mg TABLET Yes 40 Daily [facility] Diclofenac Diclofenac Yes 75 Twice A Day as n eeded for Pain [facility] Furosemide Furosemide Yes 40 Daily [facility] Gabapentin Gabapentin Yes 600 Three Time s A Day as needed for Pain [facility] Glyburide Glyburide Yes 2.5 W/Evening Meal [facility] Hydrocodone Bit/Acetaminophen ([place] 10-325 Tablet) 1 Each TABLET Hydrocodone Bit/Acetaminophen ([place] 10-325 Tablet) 1 Each TABLET Yes As Needed for Pain [facility] Insulin Glargine (Lantus 3ML Pen) 100 Units/1 Ml INJ I nsulin Glargine (Lantus 3ML Pen) 100 Units/1 Ml INJ Yes 20 Bedtime [facility] Lamotrigine Lamotrigine Yes 300 Daily [facility] Lidocaine 5% Patch Lidocaine 5% Patch Yes 1 Fo r 12 Hrs Then Off [facility] Ben Avon Carbonate Ben [place] Carbonate Yes 1200 Bedt jaskaran [facility] Metformin Hcl Metformin Hcl Yes 1000 Twice A Day [facility] Mirtazapine Mirtazapine Yes 45 Bedtime for Slee p [facility] Multivitamin (Multi-Vitamin Daily) 1 Each TABLET Multi vitamin (Multi-Vitamin Daily) 1 Each TABLET Yes [facility] Omeprazole Omeprazole Yes 20 Daily [facility] Vital Signs Vital Name Observation Time Observation Value Comments Source Weight 2020-01-16 16:25:00 299 [lb_av] [facility] BMI (Body Mass Index) 2020-01-16 16:25:00 42.9 kg/m2 [facility] Body Temperature 2019-08-23 07:37:00 97.6 [degF] [facility] Procedures This patient has no known procedures. Plan of Care Planned Activity Planned Date Details Comments Source Instructions Knee Overuse [facility] Encounters Start Date/Time End Date/Time Encounter Type Admission Type Attendi [facility] Care Department Encounter ID Source 2020-01-16 16:08:00 2020-01-16 16:56:00 Departed Emergency Room [facility] [id number] [facility] 2019-08-23 05:20:00 2019-08-23 07:48:00 Departed Emergency Room 1 DONALD MONZON [facility] [id number] [facility] 2018-05-22 17:05:00 2018-05-27 22:00:00 Discharged Inpatient 1 DENIZ BENDER [facility] [id number] [facility] 2018-05-15 11:44:00 2018-05-15 15:22:00 Departed Emergency Room [facility] [id number] [facility] 2018-04-21 20:25:00 2018-04-21 21:19:00 Departed Emergency Room [facility] [id number] [facility] Results Test Description Test Time Test Comments Results Result Comments Source CHEST SINGLE (PORTABLE) 2020-02-11 15:57:00 [facility] [address] [address] Patient Name: JOVANY WELLINGTON MR #: [id number] : 1960 Age/Sex: 59/M Req #: [id number] Adm Physician: Ordered by: REECE WATTS DO Report #: [id number] Location: ER Room/Bed: Procedure: [id number] DX/CHEST SINGLE (PORTABLE) Exam Date: 02/11/20 Exam Time: 153 REPORT STATUS: Signed EXAM: CHEST SINGLE (PORTABLE) DATE: 02/11/2020 3:32 PM INDICATION: Fever, chills COMPARISON: 05/22/2018 FINDINGS: Please note that the examination is limited secondary to the patient's body habitus. The trachea is midline. The lungs are symmetrically expanded without evidence for large focal consolidation, pneumothorax, or significant pleural effusion. The cardiomediastinal silhouette is stable in appearance. The pulmonary vasculature is not engorged. No acute osseous abnormality is identified. The surrounding soft tissues are unremarkable. IMPRESSION: No acute cardiopulmonary process identified. Signed by: Dr. Calos Aragon MD on 02/11/2020 3:59 PM Dictated By: CALOS ARAGON MD 56 Transcribed By: LESLI on 02/11/201558 COPY TO: REECE WATTS DO KNEE LEFT THREE VIEWS 2019-08-23 08:04:[address] [address] Patient Name: JOVANY WELLINGTON MR #: [id number] : 1960 Age/Sex: 59/M Req #: [id number] Adm Physician: Ordered by: DONALD MONZON MD Report #: [id number] Location: ER Room/Bed: Procedure: [id number] DX/KNEE LEFT THREE VIEWS Exam Date: 08/23/19 [...] Test Item Bedside Glucose (test code = 45662-1) 212 70-120 H Meter ID: [id number] [facility] KingwoodMagnesium Level 2018-05-27 15:42:00* Test Item Value Reference Range Interpretation Comments Magnesium Level (test code = 99180-8) 1.8 1.3-2.1 [facility] Zihem4879-46-71 15:25:00* Test Item Value Reference Range Interpretation Comments Sodium Level (test code = 2951-2) 143 136-145 [facility]woodPotassium Wkkul0372-88-25 15:25:00* Test Item Value Reference Range Interpretation Comments Potassium Level (test code = 2823-3) 3.5 3.5-5.1 [facility]woodChloride Ymrra5730-85-67 15:25:00* Test Item Value Reference Range Interpretation Comments Chloride Level (test code = 2075-0) 111 98-107 H [facility] KingwoodCarbon Dioxide Uzblq9501-23-68 15:25:00* Test Item Value Reference Range Interpretation Comments Carbon Dioxide Level (test code = 2028-9) 21 22-29 L [facility] KingwoodAnion Mzp9742-42-09 15:25:00* Test Item Value Reference Range Interpretation Comments Anion Gap (test code = 11700-0) 14.5 8-16 [facility] KingwoodBlood Urea Daykdlry2452-56-26 15:25:00* Test Item Value Reference Range Interpretation Comments Blood Urea Nitrogen (test code = 3094-0) 12 7-26 [facility] KingwoodCreatinine2018-09-15 15:25:00* Test Item Value Reference Range Interpretation Comments Creatinine (test code = 2160-0) 1.43 0.72-1.25 H [facility] KingwoodBUN/Creatinine Uecyx7873-72-13 15:25:00* Test Item Value Reference Range Interpretation Comments BUN/Creatinine Ratio (test code = 3097-3) 8 6- [facility] KingwoodEstimat Glomerular Filtration Rate 2018-05-27 15:25:00* Test Item Value Reference Range Interpretation Comments Estimat Glomerular Filtration Rate (test code = 569156170) 51 >60 L Ranges were taken from the National Kidney Disease Education Program and the [facility] literature.Reference ranges:60 or greater: Bhxchg30-45 ( for 3 consecutive months): Chronic kidney disease 15 or less: Kidney failureMemorial Hermann Surgical Hospital KingwoodGlucose Ddrdc8741-31-03 15:25:00* Test Item Value Reference Range Interpretation Comments Glucose Level (test code = SNS4667) 181 74-118 H [facility] KingwoodCalcium Tmwce1724-59-22 15:25:00* Test Item Value Reference Range Interpretation Comments Calcium Level (test code = 53641-5) 9.3 8.4-10.2 [facility] KingwoodBlood Psnszae4388-79-80 14:42:00* Test Item Value Reference Range Interpretation Comments Blood Culture (test code = 23670458) NO GROWTH AFTER 5 DAYS, FINAL REPORT [facility] KingwoodWhite Blood Mders0004-18-37 06:10:00* Test Item Value Reference Range Interpretation Comments White Blood Count (test code = 6690-2) 12.06 4.8-10.8 H [facility] KingwoodRed Blood Svdct4296-97-56 06:10:00* Test Item Value Reference Range Interpretation Comments Red Blood Count (test code = 789-8) 3.58 4.3-5.7 L [facility] KingwoodHemoglobin2018-09-14 06:10:00* Test Item Value Reference Range Interpretation Comments Hemoglobin (test code = 44615-9) 8.7 14.0-18.0 L [facility] KingwoodHematocrit2018-09-14 06:10:00* Test Item Value Reference Range Interpretation Comments Hematocrit (test code = 4544-3) 29.4 38.2-49.6 L [facility] KingwoodMean Corpuscular Axvjyg1546-72-83 06:10:00* Test Item Value Reference Range Interpretation Comments Mean Corpuscular Volume (test code = 787-2) 82.1 81-99 [facility] KingwoodMean Corpuscular Jgrqvxpzlh3774-30-83 06:10:00* Test Item Value Reference Range Interpretation Comments Mean Corpuscular Hemoglobin (test code = 785-6) 24.3 28-32 L [facility] KingwoodMean Corpuscular Hemoglobin Concent 2018-05-26 06:10:00* Test Item Value Reference Range Interpretation Comments Mean Corpuscular Hemoglobin Concent (test code = 786-4) 29.6 31-35 L [facility] KingwoodRed Cell Distribution Anxmj0398-40-19 06:10:00* Test Item Value Reference Range Interpretation Comments Red Cell Distribution Width (test code = 21373-3) 16.2 11.7 -14.4 H [facility] KingwoodPlatelet Doyxu8173-92-04 06:10:00* Test Item Value Reference Range Interpretation Comments Platelet Count (test code = 777-3) 317 140-360 [facility] KingwoodNeutrophils (%) (Auto)2018-05-26 06:10:00 * Test Item Value Reference Range Interpretation Comments Neutrophils (%) (Auto) (test code = 74154-9) 83.4 38.7-80.0 H [facility] KingwoodLymphocytes (%) (Auto)2018-05-26 06:10:00 * Test Item Value Reference Range Interpretation Comments Lymphocytes (%) (Auto) (test code = 736-9) 6.4 18.0-39.1 L [facility] KingwoodMonocytes (%) (Auto)2018-05-26 06:10:00* Test Item Value Reference Range Interpretation Comments Monocytes (%) (Auto) (test code = 5905-5) 7.0 4.4-11.3 [facility] KingwoodEosinophils (%) (Auto)2018-05-26 06:10:00 * Test Item Value Reference Range Interpretation Comments Eosinophils (%) (Auto) (test code = 713-8) 2.6 0.0-6.0 [facility] KingwoodBasophils (%) (Auto)2018-05-26 06:10:00* Test Item Value Reference Range Interpretation Comments Basophils (%) (Auto) (test code = 706-2) 0.4 0.0-1.0 [facility] KingwoodIM GRANULOCYTES %2018-05-26 06:10:00* Test Item Value Reference Range Interpretation Comments IM GRANULOCYTES % (test code = IM GRANULOCYTES %) 0.2 0.0- 1.0 [facility] KingwoodNeutrophils # (Auto)2018-05-26 06:10:00* Test Item Value Reference Range Interpretation Comments Neutrophils # (Auto) (test code = 751-8) 10.1 2.1-6.9 H [facility] KingwoodLymphocytes # (Auto)2018-05-26 06:10:00* Test Item Value Reference Range Interpretation Comments Lymphocytes # (Auto) (test code = 06028-8) 0.8 1.0-3.2 L [facility] KingwoodMonocytes # (Auto)2018-05-26 06:10:00* Test Item Value Reference Range Interpretation Comments Monocytes # (Auto) (test code = 742-7) 0.8 0.2-0.8 [facility] KingwoodEosinophils # (Auto)2018-05-26 06:10:00* Test Item Value Reference Range Interpretation Comments Eosinophils # (Auto) (test code = 711-2) 0.3 0.0-0.4 [facility] KingwoodBasophils # (Auto)2018-05-26 06:10:00* Test Item Value Reference Range Interpretation Comments Basophils # (Auto) (test code = 704-7) 0.1 0.0-0.1 [facility] KingwoodAbsolute Immature Granulocyte (auto 2018-05-26 06:10:00* Test Item Value Reference Range Interpretation Comments Absolute Immature Granulocyte (auto (jeffery t code = Absolute Immature Granulocyte (auto) 0.03 0-0.1 [facility] KingwoodPhosphorus Qaxmg4500-15-03 05:59:00* Test Item Value Reference Range Interpretation Comments Phosphorus Level (test code = MGW4118) 3.2 2.3-4.7 [facility] KingwoodTotal Bfnvvsjwt0586-97-79 05:59:00* Test Item Value Reference Range Interpretation Comments Total Bilirubin (test code = 1975-2) 0.3 0.2-1.2 [facility] KingwoodAspartate Amino Transf (AST/SGOT) 2018-05-26 05:59:00* Test Item Value Reference Range Interpretation Comments Aspartate Amino Transf (AST/SGOT) (test code = Aspartate Amino Transf (AST/SGOT)) 29 5-34 [facility] KingwoodAlanine Aminotransferase (ALT/SGPT) 2018-05-26 05:59:00* Test Item Value Reference Range Interpretation Comments Alanine Aminotransferase (ALT/SGPT) (test code = 1742-6) 35 0-55 [facility] KingwoodTotal Etrhkkr9487-26-36 05:59:00* Test Item Value Reference Range Interpretation Comments Total Protein (test code = 2885-2) 6.1 6.5-8.1 L [facility] KingwoodAlbumin2018-09-14 05:59:00* Test Item Value Reference Range Interpretation Comments Albumin (test code = 1751-7) 2.8 3.5-5.0 L [facility] KingwoodGlobulin2018-09-14 05:59:00* Test Item Value Reference Range Interpretation Comments Globulin (test code = 95448-8) 3.3 2.3-3.5 [facility] KingwoodAlbumin/Globulin Tnsfv4432-01-80 05:59:00 * Test Item Value Reference Range Interpretation Comments Albumin/Globulin Ratio (test code = 1759-0) 0.8 0.8-2.0 [facility] KingwoodAlkaline Tdhvszvzgkm7888-13-79 05:59:00* Test Item Value Reference Range Interpretation Comments Alkaline Phosphatase (test code = 6768-6) 152 40-150 H [facility] KingwoodCT ABDOMEN OM6520-75-89 20:50:00 [facility] [address] [address] Patient Name: JOVANY WELLINGTON MR #: [id number] : 1960 Age/Sex: 57/M Req #: [id number] Adm Physician: DENIZ BENDER MD Ordered by: PASQUALE WHITE, AVA WHIET Report #: [id number] Loc ation: ICU Room/Bed: ICU [facility] Procedure: [id number] C T/CT ABDOMEN WO Exam Date: Exam Time: REPORT STATUS: Signed CT Abdomen Unenhanced CPT CODE: 13635 INDICATION: I leus TECHNIQUE: 5 mm collimation axial images obtained from lung base to il iac crest without intravenous or oral contrast. RADIATION DOSE: To jennifer DLP: 567.95 mGy*cm Estimated effective dose: (DLP x 0.015 x size fac tor) mSv CTDIvol has been reviewed. It is below the limits set by the [facility] Protocol Committee (RPC). Comparison: Abdomen x-ray 0942 [...] 05/25/182055 COPY TO: AVA GIORDANO ABDOMEN- 1VIEW ([facility])2018-05-25 15:12:00 [facility] [address] [address] Patient Name: JOVANY WELLINGTON MR #: [id number] : 1960 Age/Sex: 57/M Req #: [id number] Adm Physician: DENIZ BENDER MD Ordered by: DENIZ BENDER MD Report #: [id number] Location: ICU Room/Bed: ICU [facility] Procedure: [id number] D X/ABDOMEN-1VIEW ([facility]) Exam Date: 05/25/18 Exam [...] for bowel obstruction. Signed by: Dr. Mylene Degroot M.D. on 05/25/2018 3:14 PM Dictated By: MYLENE YADAV MD 0915 Transcribed By: LESLI on 05/25/18 1511 COPY TO: DENIZ BENDER MD Clostridium Difficile Toxin A & M1629-57-74 14:47:00* Test Item Value Reference Range Interpretation Comments Clostridium Difficile Toxin A & B (test code = 602532249) NEGATIVE NEGATIVE Testing on stool aspirate specimens is outside press tender smoke signal claims since specime n type not validated on this assay.[facility] Vqavm2213-47-77 11:29:00* Test Item Value Reference Range Interpretation Comments [place] Level (test code = 76986-8) 1.0 Reference Range:0.4-1.2 mmol/LTests performed by [facility] .[facility] KingwoodNON-TUNNELLED CVC CATH GBKSKII4728-68-52 07:46:00 [facility] [address] [address] Patient Name: JOVANY WELLINGTON MR #: [id number] : 1960 Age/Sex: 57/M Req #: [id number] Adm Physician: DENIZ BENDER MD Ordered by: SHERLEY ROLLINS MD Report #: [id number] Location: ICU Room/Bed: [address] [address] Procedure: [id number] IR /NON-TUNNELLED CVC CATH PLACMNT Exam Date: 05/22/18 Exam Time: 1645 REPORT STATUS: Signed Date and Time: 05/22/2018 Pro cedure: Temporary hemodialysis catheter placement, right internal jugular appr [facility] quality control operator: Dr. Payan Pre-operative diagnosis: Acute kid [...] products administered: None Specimens: None Implants: 13 Thai 15 cm high flow central venous ca [...] and the tract was dilated. A 13 Thai 15 cm triple-lumen hi flow central venous [...] vein. IMPRESSION: Successful placement of a 13 Thai, 15 cm triple-lumen hi flow central venous catheter by a right internal jugular approach under sonographic and fluoros copic guidance. Signed by: Dr. Batsheva Payan M.D. on 05/24/2018 7:50 AM Dictated By: BATSHEVA PAYAN MD 075 Transcribed By: LESLI on 05/24/18 075 COPY TO: SHERLEY VELA MD IR LAEMKRQ2342-76-54 07:46:00 [address] [address] Patient Name: JOVANY WELLINGTON MR #: [id number] : 1960 Age/Sex: 57/M Req #: [id number] Adm Physician: DENIZ BENDER MD Ordered by: SHERLEY ROLLINS MD Report #: [id number] Location: ICU Room/Bed: ICU [facility] Procedure: [id number] DX /IR CONSULT Exam Date: Exam Time: REPORT STA TUS: Signed Date and Time: 05/22/2018 Procedure: Temporary hemodialysis c atheter placement, right internal jugular approach quality control operator: Dr. Payan Pre-operative diagnosis: Acute kidney [...] administered: None Specimens: None Impla nts: 13 Thai 15 cm high flow central venous catheter [...] and the tract was dilated. A 13 Thai 15 cm triple-lumen hi flow central venous [...] SHERLEY ROLLINS MD US GUIDANCE FOR VASCULAR DCMZV7647-81-07 07:46:[address] [address] Patient Name: JOVANY WELLINGTON MR #: [id number] : 1960 Age/Sex: 57/M Req #: [id number] Adm Physician: DENIZ BENDER MD Ordered by: SHERLEY ROLLINS MD Report #: [id number] Location: ICU Room/Bed: ICU [facility] Procedure: [id number] US /US GUIDANCE FOR VASCULAR ACCES Exam Date: 05/22/18 Exam Time: 1806 REPORT STATUS: Signed Date and Time: 05/22/2018 Pro cedure: Temporary hemodialysis catheter placement, right internal jugular appr [facility] quality control operator: Dr. Payan Pre-operative diagnosis: Acute kid [...] products administered: None Specimens: None Implants: 13 Thai 15 cm high flow central venous ca [...] and the tract was dilated. A 13 Thai 15 cm triple-lumen hi flow central venous [...] vein. IMPRESSION: Successful placement of a 13 Thai, 15 cm triple-lumen hi flow central venous catheter by a right internal jugular approach under sonographic and fluoros copic guidance. Signed by: Dr. Batsheva Payan M.D. on 05/24/2018 7:50 AM Dictated By: BATSHEVA PAYAN MD 9 Transcribed By: LESLI on 05/24/18749 COPY TO: SHERLEY VELA MD FLUORO GUIDANCE [facility] /HKS6072-98-01 07:46:00 [address] [address] Patient Name: JOVANY WELLINGTON MR #: [id number] : 1960 Age/Sex: 57/M Req #: [id number] Adm Physician: DENIZ BENDER MD Ordered by: SHERLEY ROLLINS MD Report #: [id number] Loca tion: ICU Room/Bed: ICU [facility] Procedure: [id number] DX /FLUORO GUIDANCE [address]/REM Exam Date: 05/22/18 Exam Time: 1300 REPORT STATUS: Signed Date and Time: 05/22/2018 Pro cedure: Temporary hemodialysis catheter placement, right internal jugular appr [facility] quality control operator: Dr. Payan Pre-operative diagnosis: Acute kid [...] products administered: None Specimens: None Implants: 13 Thai 15 cm high flow central venous ca [...] and the tract was dilated. A 13 Thai 15 cm triple-lumen hi flow central venous [...] vein. IMPRESSION: Successful placement of a 13 Thai, 15 cm triple-lumen hi flow central venous catheter by a right internal jugular approach under sonographic and fluoros copic guidance. Signed by: Dr. Batsheva Payan M.D. on 05/24/2018 7:50 AM Dictated By: BATSHEVA PAYAN MD 9 Transcribed By: LESLI on 05/24/18749 COPY TO: SHERLEY VELA MD Hepatitis B Surface Antibody, Dzxcv7221-31-08 05:21:00* Test Item Value Reference Range Interpretation Comments Hepatitis B Surface Antibody, Quant (test code = 5194-6) -3.1 Immunity>9.9 L Status of Immunity Anti-HBs Level Inconsistent with Immunity 0.0 - 9.9Consistent with Immunity >9.9[facility] Surface Dbjaeca0510-38-40 05:21:00* Test Item Value Reference Range Interpretation Comments Hepatitis B Surface Antigen (test code = 5196-1) Negative Negat leia [facility] KingwoodHepatitis B Core IgM Xncapkjy9378-96-32 05:21:00* Test Item Value Reference Range Interpretation Comments Hepatitis B Core IgM Antibody (test code = 58476-8) Negative Ne gative Performed at: [address] [id number] Director: Fran Ellison MD, Phone: [phone] Hermann Surgical Hospital KingwoodTriglycerides Mitjv1083-63-57 05:43:00* Test Item Value Reference Range Interpretation Comments Triglycerides Level (test code = 2571-8) 297 0-149 H [facility] KingwoodCholesterol Sfeyb7169-05-87 05:43:00* Test Item Value Reference Range Interpretation Comments Cholesterol Level (test code = 2093-3) 128 0-199 Less than 200 mg/dL Low Byhf630 - 239 mg/dL Borderline Eppi986 m g/dl and greater High Risk [facility] KingwoodLDL Usdmiptvuzf3803-51-38 05:43:00* Test Item Value Reference Range Interpretation Comments LDL Cholesterol (test code = 2089-1) 42 60-130 L [facility] KingwoodHDL Ughsvvycbxn2007-90-01 05:43:00* Test Item Value Reference Range Interpretation Comments HDL Cholesterol (test code = 2085-9) 27 40-60 L [facility] KingwoodCholesterol/HDL Aitxz9030-55-65 05:43:00 * Test Item Value Reference Range Interpretation Comments Cholesterol/HDL Ratio (test code = 9830-1) 4.7 3.9-4.7 [facility] KingwoodCreatine Hwetlj2462-20-96 05:14:00* Test Item Value Reference Range Interpretation Comments Creatine Kinase (test code = 2157-6) 191 30-200 [facility]wood[facility]ine Kinase [id number] 05:14:00* Test Item Value Reference Range Interpretation Comments Creatine Kinase MB (test code = 74151-2) 1.30 0-5.0 [facility]woodTroponin [id number] 05:14:00* Test Item Value Reference Range Interpretation Comments Troponin I (test code = HHY8729) 0.001 0-0.300 [facility] KingwoodLactic Acid [id number] 23:50:00* Test Item Value Reference Range Interpretation Comments Lactic Acid Level (test code = Lactic Acid Level) 6.5 4.5- 19.8 [facility]woodUS RENAL RETROPERITONEAL [id number] 19:57:00 [facility] [address] [place] [address] Patient Name: JOVANY WELLINGTON MR #: [id number] : 1960 Age/Sex: 57/M Req #: [id number] Adm Physician: DENIZ BENDER MD Ordered by: PASQUALE WHITE, AVA WHITE Report #: [id number] Location: [facility] Room/Bed: [place] [address] Procedure: [id number] US/US RENAL RETROPERITONEAL COMP Exam Date: 05/22/18 Exam Time: 1915 REPORT STATUS: Signed Retroperitoneal ultrasound idalia sanches CPT code: 95035 Indication: Acute kidney injury. Technique: S elect [...] LESLI on 05/22/182000 COPY T O: AVA GIORADNO Uric [id number] 18:36:00* Test Item Value Reference Range Interpretation Comments Uric Acid (test code = 3084-1) 10.4 4.8-8.0 [facility] [id number] 17:34:00 [facility] [address] [address] Patient Name: JOVANY WELLINGTON MR #: [id number] : 1960 Age/Sex: 57/M Req #: [id number] Adm Physician: Ordered by: SHERLEY ROLLINS MD Report #: [id number] Location: ER Room/Be d: Procedure: [id number] CT/CT BRAIN WO Exam Date: Exam Time: [...] Signed By: HUSAM VAZQUEZ MD, MD on 09/10/18 1735 Transcribed B y: LESLI on 05/22/181734 COPY TO: SHERLEY ROLLINS MD CHEST SINGLE (PORTABLE)2018-05-22 16:53:00 [place] [address] Patient Name: JOVANY WELLINGTON MR #: [id number] : 1960 Age/Sex: 57/M Req #: [id number] Adm Physician: Ordered by: SHERLEY ROLLINS MD Report #: [id number] Location: ER Room/Bed: Procedure: [id number] DX/CHEST SINGLE (PORTABLE) E xam Date: 05/22/18 Exam Time: 1515 REPORT STATU [...] PM Di ctated By: ALDAIR GALLO MD 52 COPY TO: SHERLEY ROLLINS MD Urine [id number] 16:17:00* Test Item Value Reference Range Interpretation Comments Urine WBC (test code = 5821-4) 0-5 0-5 [facility]wood[facility] [id number] 16:17:00* Test Item Value Reference Range Interpretation Comments Urine RBC (test code = 73625-7) 0-5 0-5 [facility]wood[facility] [id number] 16:17:00* Test Item Value Reference Range Interpretation Comments Urine Bacteria (test code = 57766-0) RARE NONE [facility]woodU[facility] Epithelial [id number] 16:17:00 * Test Item Value Reference Range Interpretation Comments Urine Epithelial Cells (test code = 17979-1) RARE NONE [facility]wood[facility] Ammonium Biurate [id number] 16:17:00* Test Item Value Reference Range Interpretation Comments Urine Ammonium Biurate Crystals (test code = 5766-1) FEW N ONE H [facility] Opiates [id number] 16:08:00* Test Item Value Reference Range Interpretation Comments Urine Opiates Screen (test code = 91414-2) POSITIVE NEGATIVE H This test provides only a screen. Positive results should be repeated by a confi rmatory test.[facility]wood[facility]rine Barbiturates Screen 2018-05-22 16:08:00* Test Item Value Reference Range Interpretation Comments Urine Barbiturates Screen (test code = 380783974) NEGATIVE NEGA TIVE [facility]wood[facility] Phencyclidine [id number] 16:08:00* Test Item Value Reference Range Interpretation Comments Urine Phencyclidine Screen (test code = 23040-3) NEGATIVE NEGAT LEIA [facility]wood[facility] Amphetamines [id number] 16:08:00* Test Item Value Reference Range Interpretation Comments Urine Amphetamines Screen (test code = 43587-1) NEGATIVE NEGATI VE [facility]wood[facility] Methamphetamines [id number] 16:08:00* Test Item Value Reference Range Interpretation Comments Urine Methamphetamines Screen (test code = Urine Metha mphetamines Screen) NEGATIVE NEGATIVE [facility] Benzodiazepines [id number] 16:08:00* Test Item Value Reference Range Interpretation Comments Urine Benzodiazepines Screen (test code = 81771-7) NEGATIVE NEG ATIVE [facility]wood[facility] Cocaine [id number] 16:08:00* Test Item Value Reference Range Interpretation Comments Urine Cocaine Screen (test code = 3398-5) NEGATIVE NEGATIVE [facility] Cannabinoids [id number] 16:08:00* Test Item Value Reference Range Interpretation Comments Urine Cannabinoids Screen (test code = 84641-8) NEGATIVE NEGATI VE THESE RESULTS ARE FOR MEDICAL TREATMENT ONLYTHIS REPORT CONTAINS UNCONFIR MED SCREENING RESULTS*POSITIVE RESULTS WILL BE CONFIRMED BY REFERENCE LAB UPON R EQUEST CUT-OFFDRUG CLASS CONCENTRATION ng/mLAmphetamines 1000Methamphetamines 1000Cocaine 300Opiate 300Phencyc lidine 25Cannabinoid 50Barbiturates 300Benzodiazepine 300Methadone 300[facility] [id number] 16:04:00* Test Item Value Reference Range Interpretation Comments Urine Color (test code = 5778-6) YELLOW YELLOW [facility]wood[facility] [id number] 16:04:00* Test Item Value Reference Range Interpretation Comments Urine Clarity (test code = 20558-4) CLEAR CLEAR [facility]wood[facility] Specific [id number] 16:04:00 * Test Item Value Reference Range Interpretation Comments Urine Specific Lenora (test code = 5811-5) 1.020 1.010-1.02 5 [facility]wood[facility] [id number] 16:04:00* Test Item Value Reference Range Interpretation Comments Urine pH (test code = 05041-3) 5 5-7 [facility] Leukocyte [id number] 16:04:00* Test Item Value Reference Range Interpretation Comments Urine Leukocyte Esterase (test code = 5799-2) NEGATIVE NEGATIVE [facility] [id number] 16:04:00* Test Item Value Reference Range Interpretation Comments Urine Nitrite (test code = 58804-6) NEGATIVE NEGATIVE [facility]wood[facility] [id number] 16:04:00* Test Item Value Reference Range Interpretation Comments Urine Protein (test code = 5804-0) NEGATIVE NEGATIVE [facility]wood[facility] Glucose (UA)2018-05-22 16:04:00* Test Item Value Reference Range Interpretation Comments Urine Glucose (UA) (test code = 2349-9) NEGATIVE NEGATIVE [facility]wood[facility] [id number] 16:04:00* Test Item Value Reference Range Interpretation Comments Urine Ketones (test code = 36771-5) NEGATIVE NEGATIVE [facility]wood[facility] [id number] 16:04:00* Test Item Value Reference Range Interpretation Comments Urine Urobilinogen (test code = 62172-5) 0.2 0.2-1 [facility]wood[facility] [id number] 16:04:00* Test Item Value Reference Range Interpretation Comments Urine Bilirubin (test code = 1978-6) NEGATIVE NEGATIVE [facility]wood[facility] [id number] 16:04:00* Test Item Value Reference Range Interpretation Comments Urine Blood (test code = 75861-7) 1+ NEGATIVE H [facility] KingwoodThyroid Stimulating Hormone (TSH) 2018-05-22 15:23:00* Test Item Value Reference Range Interpretation Comments Thyroid Stimulating Hormone (TSH) (test code = 58004-8) 3.324 0.350-4.940 [facility]woodAcetaminophen [id number] 15:01:00* Test Item Value Reference Range Interpretation Comments Acetaminophen Level (test code = 83661-1) -3 10-30 L [facility] [id number] 15:01:00* Test Item Value Reference Range Interpretation Comments Salicylates Level (test code = 4024-6) -5.0 0-30 [facility]woodProthrombin [id number] 14:52:00* Test Item Value Reference Range Interpretation Comments Prothrombin Time (test code = 5902-2) 14.2 11.9-14.5 [facility] KingwoodProthromb Time International Ratio 2018-05-22 14:52:00* Test Item Value Reference Range Interpretation Comments Prothromb Time International Ratio (test code = 6301-6) 1.19 Oral Anticoagulant Therapy INR Values:1. Low Intensity Therapy 1.5 - 2.02 . Moderate Intensity Therapy 2.0 - 3.03. High Intensity Therapy(1) 2.5 - 3. 54. High Intensity Therapy(2) 3.0 - 4.05. Panic Value INR > 5.0 [facility] KingwoodActivated Partial Thromboplast Time 2018-05-22 14:52:00* Test Item Value Reference Range Interpretation Comments Activated Partial Thromboplast Time (test code = 22087-0) 32.5 23.8-35.5 [facility] KingwoodAmmonia2018-09-10 14:51:00* Test Item Value Reference Range Interpretation Comments Ammonia (test code = 28145-8) 37 31-123 [facility]
[2020-02-11] MEDS ORDERED: SODIUM CHLORIDE 0.9% 1000ML 1,000 ML IV ONE (17:15)
--- NOTE | 2020-02-11 17:22 | NUR ---
consult patient was seen and examined in the emergency room discussed with Dr. Giron with [facility] team this is a 59-year-old white male with history of obesity bipolar disorder is a Jehovah's WitnessRefused a blood product comes in with sudden and had a fever chills and not feeling well 2 years ago he was here with Jayson episode of abscess that was due to cellulitis of his leg the patient did have venous stasis dermatitis the patient comes in with the lancet of chills and feeling well. Denies any pain denies any cough shortness of breath or cough nausea vomiting diarrhea the patient denies any travel alternating knee contact with patient with COVID19 This is a 59-year-old male, very poor historian, who came into the ED with complaints of acute onset of fever that began early this afternoon. The patient has multiple issues. Of note, he has a history of bipolar multiple psychiatric disorders, type 2 diabetes as well. The patient denies any recent travel, cough, congestion. He does have lower extremity redness that he reports is pretty chronic, but unsure if this is underlying cellulitis. Denies any diarrhea. No sick contacts at home. While here, the patient's coronavirus PCR was found to be negative. There is no reports of any shortness of breath as well. The patient is seen and evaluated in the emergency room. He is currently very stable. He is on room air with no complications at this time. REVIEW OF SYSTEMS: Pertinent positives: Fever, generalized weakness, and malaise. The rest of 14-point review of systems are reviewed with the patient and are negative. ALLERGIES: NO KNOWN DRUG ALLERGIES. HOME MEDICATIONS: He takes: 1. Aspirin. 2. Furosemide. 3. Glimepiride. 4. [place]. 5. Metformin. 6. Multivitamin. 7. Abilify. 8. Gabapentin. 9. Lantus. 10. [place]. PAST MEDICAL HISTORY: Type 2 diabetes, he is morbidly obese, hypertension, bipolar disorder, multiple psychiatric disorders. PAST SURGICAL HISTORY: Reports none. FAMILY HISTORY: Hypertension and diabetes. SOCIAL HISTORY: No drugs. No alcohol. Does not smoke. He lives with his mother. Physical examination currently alert oriented does not sleep in acute distress with vitals stable at present time. HEENT is not. he is not icteric not pale normocephalic. Neck supple no JVD no lymphadenopathy or thyromegaly. Chest clear bilateral. Heart S1-S2 no murmur. Abdomen soft also bowel soundpresent no tenderness.obese Extremities with edema skin no rash Fever rule out sepsis source is unclear patient is being checked for COVID19 AGREEABLE TO CULTURES URINE CULTURES AND AGREE WITH rOCEPHIN 1 G DAILY VANCOMYCIN 1 G DAILY CHRONIC KIDNEY DISEASE oBESITY bIPOLAR DISORDER pATIENT REFUSED ANY BLOOD PRODUCT rECHECK cbc RECHECK AND PANEL rEASSESSED IN THE MORNING dISCUSSED WITH THE MEDICAL TEAM
[2020-02-11] MEDS ORDERED: ACETAMINOPHEN 325 MG TAB PO PRN ×2 (17:45→18:15)
--- NOTE | 2020-02-11 17:47 | Emergency Department Note ---
History of Present Illnes History of Present Illness Chief Complaint: COVID PUI History of Present Illness This is a 59 year old male arrived to the ED with complaints of fever and malaise for several days- admits to congestion, headaches and body aches.. Chief Complaint Comment Pt arrived to the ER with c/o body aches x2 days. Fever and headache that started this morning. Pt reports taking 1gram Tylenol around 1130 this am. Pt denies any SOB, cough, loss of taste. Reports severe headache and chills. Current temp 103.1 Historian: Patient Arrival Mode: Car Onset (how long ago): day(s) Radiation: non-radiation Severity: moderate Onset quality: gradual Duration (how long): day(s) Timing of current episode: constant Progression: worsening Past Medical/Family History Physician Review I have reviewed the patient's past medical and family history. Any updates have been documented here. Past Medical History Recent Fever: Yes Clinical Suspicion of Infectio: Yes New/Unexplained Change in Ment: No Past Medical History: Hypertension, Diabetes, CHF, Anxiety, Depression, Other Mental Illness, GERD Other Medical History: BIPOLAR OLD HEAD INJURY Other Surgery: RT ROTATOR CUFF SX RT ACHILLES SX Social History Smoking Cessation: Never Smoker Alcohol Use: None Any Illegal Drug Use: No TB Exposure/Symptoms: No Physically hurt or threatened: No Other Last Tetanus: UTD Any Pre-Existing Lines (PICC,: No Is patient up to date on immun: Yes Last Flu: UTD Last Pneumovax: NO Review of Systems Review of Systems Constitutional: no symptoms, as per HPI, weakness EENTM: no symptoms Cardiovascular: no symptoms Respiratory: as per HPI, chest congestion Gastrointestinal: no symptoms Genitourinary: no symptoms Musculoskeletal: no symptoms Neurological: no symptoms Psychological: no symptoms Endocrine: no symptoms Hematological/Lymphatic: no symptoms Review of other systems All other systems reviewed and negative. Physical Exam Related Data Allergies: Coded Allergies: No Known Allergies (Unverified , 05/22/18) Triage Vital Signs Vital Signs Date Time Temp Pulse Resp B/P (MAP) Pulse Ox O2 Delivery O2 Flow Rate FiO2 02/11/20 14:32 103.1 125 20 145/91 96 Vital signs reviewed: Yes Physical Exam CONSTITUTIONAL Constitutional: well-developed, well-nourished HENT HENT: normocephalic, atraumatic, oropharynx clear/moist, nose normal HENT L/R: left ext ear normal, right ext ear normal EYES Eyes: PERRL, conjunctivae normal NECK Neck: ROM normal PULMONARY Pulmonary: effort normal, breath sounds normal CARDIOVASCULAR Cardiovascular: regular rhythm, heart sounds normal, capillary refill normal, normal rate GASTROINTESTINAL Abdominal: soft, nontender, bowel sounds normal GENITOURINARY Genitourinary: exam deferred SKIN Skin: warm, dry MUSCULOSKELETAL Musculoskeletal: ROM normal NEUROLOGICAL Neurological: alert, oriented x 3, no gross motor or sensory deficits PSYCHOLOGICAL Psychological: mood/affect normal, judgement normal Results Laboratory Result Diagram: 02/11/20 1545 02/11/20 1545 Laboratory Laboratory Tests Test 02/11/20 15:48 02/11/20 15:45 White Blood Count 13.16 x10e3/uL (4.8-10.8) Red Blood Count 4.90 x10e6/uL (4.3-5.7) Hemoglobin 14.4 g/dL (14.0-18.0) Hematocrit 44.0 % (38.2-49.6) Mean Corpuscular Volume 89.8 fL (81-99) Mean Corpuscular Hemoglobin 29.4 pg (28-32) Mean Corpuscular Hemoglobin Concent 32.7 g/dL (31-35) Red Cell Distribution Width 12.8 % (11.7-14.4) Platelet Count 135 x10e3/uL (140-360) Neutrophils (%) (Auto) 93.0 % (38.7-80.0) Lymphocytes (%) (Auto) 2.7 % (18.0-39.1) Monocytes (%) (Auto) 3.3 % (4.4-11.3) Eosinophils (%) (Auto) 0.4 % (0.0-6.0) Basophils (%) (Auto) 0.2 % (0.0-1.0) Neutrophils # (Auto) 12.2 (2.1-6.9) Lymphocytes # (Auto) 0.4 (1.0-3.2) Monocytes # (Auto) 0.4 (0.2-0.8) Eosinophils # (Auto) 0.1 (0.0-0.4) Basophils # (Auto) 0.0 (0.0-0.1) Absolute Immature Granulocyte (auto 0.05 x10e3/uL (0-0.1) Sodium Level 139 mmol/L (136-145) Potassium Level 3.8 mmol/L (3.5-5.1) Chloride Level 102 mmol/L (98-107) Carbon Dioxide Level 23 mmol/L (22-29) Anion Gap 17.8 mmol/L (8-16) Blood Urea Nitrogen 32 mg/dL (7-26) Creatinine 2.02 mg/dL (0.72-1.25) Estimat Glomerular Filtration Rate 34 ML/MIN (60-) BUN/Creatinine Ratio 16 (6-25) Glucose Level 152 mg/dL (74-118) Lactic Acid Level 1.8 mmol/L (0.5-2.0) Calcium Level 9.7 mg/dL (8.4-10.2) Total Bilirubin 0.5 mg/dL (0.2-1.2) Aspartate Amino Transf (AST/SGOT) 30 IU/L (5-34) Alanine Aminotransferase (ALT/SGPT) 50 IU/L (0-55) Alkaline Phosphatase 137 IU/L (40-150) Creatine Kinase 164 IU/L (30-200) Creatine Kinase MB 0.90 ng/mL (0-5.0) Troponin I < 0.001 ng/mL (0-0.300) Total Protein 7.8 g/dL (6.5-8.1) Albumin 4.3 g/dL (3.5-5.0) Globulin 3.5 g/dL (2.3-3.5) Albumin/Globulin Ratio 1.2 (0.8-2.0) Lab results reviewed: Yes Imaging Imaging results reviewed: Yes Impressions IMPRESSION: No acute cardiopulmonary process identified. Critical Care Time Subsequent provider I assumed direction of critical care for this patient from another provider of my specialty. Assessment & Plan Reassessment Reassessment 59 M arrived to the ED with complaints of fever- no bacterial source of infection noted at time of admission. There is a high suspicion of COVID etiology or some other viral syndrome In the event pt returned covid negative: Blood cultures, lactic acid were done and there was a concern of organ dysfunction due to an elevated Creatnine (however, pt has baseline CKD) Pt refused antibiotics, understood the necessity to cover for a possible bacterial source- wishes to get covid result back first- this was relayed to medicine team Assessment & Plan Final Impression: (1) VIRAL PNEUMONIA, UNSPECIFIED Assessment & Plan cbc, cmp CXR admit Depart Disposition: ADMITTED Last Vital Signs Date Time Temp Pulse Resp B/P (MAP) Pulse Ox O2 Delivery O2 Flow Rate FiO2 02/11/20 16:30 101.6 02/11/20 15:46 126 32 97 Home Meds Reported Medications Hydrocodone Bit/Acetaminophen (NORCO 10-325 TABLET) 1 Each Tablet, PO PRN for PAIN 05/22/18 Multivitamin (MULTI-VITAMIN DAILY) 1 Each Tablet 05/22/18 Aspirin (ASPIR 81) 81 Mg Tablet.dr, PO DAILY 05/22/18 Omeprazole (OMEPRAZOLE) 40 Mg Capsule.dr, 20 MCG PO DAILY 05/22/18 Mirtazapine (MIRTAZAPINE) 15 Mg Tab, 45 MG PO HS for SLEEP, TAB 05/22/18 Metformin Hcl (METFORMIN HCL) 500 Mg Tablet, 1000 MG PO BID, #60 TAB 05/22/18 Insulin Glargine (LANTUS 3ML PEN) 100 Units/1 Ml Inj, 20 SQ HS 05/22/18 [place] Carbonate (LITHIUM CARBONATE) 300 Mg Capsule, 1200 MG PO HS 05/22/18 [Lidocaine 5% Patch] No Conflict Check, 1 PATCH TP FOR 12 HRS THEN OFF 05/22/18 Lamotrigine (LAMOTRIGINE) 100 Mg Tablet, 300 MG PO DAILY, #30 TAB 05/22/18 Glyburide (GLYBURIDE) 5 Mg Tablet, 2.5 MG PO W/EVENING MEAL, #30 TAB 05/22/18 Gabapentin (GABAPENTIN) 600 Mg Tablet, 600 MG PO TID PRN for PAIN 05/22/18 Furosemide (FUROSEMIDE) 40 Mg Tablet, 40 MG PO Daily, #30 TAB 05/22/18 [Diclofenac ] No Conflict Check, 75 MG PO BID PRN for PAIN 05/22/18 Citalopram Hydrobromide (CITALOPRAM HBR) 20 Mg Tablet, 40 MG PO DAILY, TAB 05/22/18 Cholecalciferol (Vitamin D3) (VITAMIN D) 400 Unit Capsule, 800 UNITS PO DAILY, #30 CAP 05/22/18 Atorvastatin Calcium (ATORVASTATIN CALCIUM) 20 Mg Tablet, 40 MG PO HS, #30 TAB 05/22/18 Aripiprazole (ABILIFY) 30 Mg Tablet, 30 MG PO DAILY 05/22/18 Amlodipine Besylate (AMLODIPINE BESYLATE) 10 Mg Tablet, 10 MG PO DAILY, #30 TAB 05/22/18 Allopurinol (ALLOPURINOL) 100 Mg Tablet, 100 MG PO DAILY, #30 TAB 05/22/18 Medications in the ED Ibuprofen 600 mg ONCE STAT PO ; Start 02/11/20 at 15:00; Stop 02/11/20 at 15:01 REECE WATTS DO Feb 11, 2020 17:47
[2020-02-11 18:30] LABS: BILIRUBIN,URINE NEGATIVE (NEGATIVE); CLARITY,URINE SL CLOUDY (CLEAR); COLOR,URINE YELLOW (YELLOW); KETONES,URINE NEGATIVE (NEGATIVE); LEUKOCYTE ESTERASE ,URINE NEGATIVE (NEGATIVE); NITRITE,URINE NEGATIVE (NEGATIVE); PROTEIN,URINE DIPSTICK NEGATIVE (NEGATIVE); URINE UROBILINOGEN 0.2 mg/dL (0.2 - 1)
[2020-02-11 19:00] LABS: EPITHELIAL CELLS,URINE FEW /LPF
[2020-02-11] MEDS ORDERED: MIRTAZAPINE 15 MG TAB PO SCH (21:00)
[2020-02-11] MEDS ORDERED: ATORVASTATIN 20 MG TAB PO SCH (21:00)
--- NOTE | 2020-02-11 21:40 | Consultation ---
DATE OF CONSULTATION: Pulmonary and Critical Care Consultation CHIEF COMPLAINT: Fever. HISTORY OF PRESENT ILLNESS: The patient is a 59-year-old man. He has a history of bipolar illness and has previously been treated with Abilify and lithium. Several years ago, he required a prolonged hospitalization after sepsis from cellulitis and acute renal failure. He temporarily required dialysis. The patient now complains of headache and fever for 2 days. He denies cough or chest pain. He is having some mild dyspnea. He has no abdominal pain. He has no nausea or vomiting. He does have some chronic leg edema. PAST MEDICAL HISTORY: 1. Lower extremity dermatitis and lymphedema. 2. Diabetes. 3. Hypertension. 4. Bipolar disorder. 5. Chronic kidney disease. PAST SURGICAL HISTORY: Temporary dialysis catheter. SOCIAL HISTORY: The patient does not drink or use drugs. ALLERGIES: NO KNOWN DRUG ALLERGIES. FAMILY HISTORY: Family history is noncontributory. REVIEW OF SYSTEMS: The patient does have some headache. He has some fevers. He is not complaining of a sore throat. He denies any neck pain. He has no chest pain. He has mild dyspnea. He has no cough. He has no abdominal pain. There is no nausea or vomiting. Does have some chronic swelling in his legs. He has some chronic dermatitis. PHYSICAL EXAMINATION: VITAL SIGNS: The blood pressure is 128/76 with a saturation of 96%. Pulse is 125. HEENT: Shows no facial swelling or erythema. Oropharynx is normal. LYMPHATIC: Shows no submandibular, cervical, or supraclavicular adenopathy. CARDIAC: Reveals regular rate and rhythm with normal S1 and S2. There are no murmurs or rubs heard. LUNGS: Auscultation of lungs shows clear breath sounds bilaterally. There is no wheezing. ABDOMEN: Soft and nontender. There is no rebound or guarding. EXTREMITIES: Shows his extremities to be wrapped in compression devices. NEUROLOGICAL: Shows no focal abnormalities. LABORATORY DATA: White blood cell count is 13.1, hemoglobin is 14.4. The platelet count is 135. The BUN to creatinine ratio is 32 to 2.02. The other electrolytes are within normal limits. RADIOGRAPHIC DATA: Chest x-ray shows no acute disease. IMPRESSION: 1. Fever with sepsis of unclear etiology. 2. Chronic renal failure, stage 3. 3. Bipolar disorder. 4. Diabetes. 5. Hypertension. PLAN: 1. The patient will be pancultured. 2. He will be started on antibiotics. 3. The patient will be seen by Infectious Disease. 4. COVID-19 testing. 5. Continue prior bipolar medications. 6. Continue diabetic regimen. MD CLINT Lee/VIJAY /[id number]
--- NOTE | 2020-02-11 23:15 | NUR ---
Assumed care of patient at this time.
[2020-02-11] MEDS ORDERED: VANCOMYCIN 1GM/NS 250 ML 250 ML IV SCH (23:30)
[2020-02-11] MEDS ORDERED: CEFEPIME 1GM/NS 0.9% 50 ML 50 ML IV SCH (23:30)
[2020-02-11] MEDS ORDERED: DOCUSATE SODIUM 100 MG CAP PO PRN (23:30)
[2020-02-11] MEDS ORDERED: HYDRALAZINE HCL 20 MG/ML VIAL IV PRN (23:30)
[2020-02-11] MEDS: ATORVASTATIN 40 MG TAB PO SCH (23:33)
[2020-02-11] MEDS: ENOXAPARIN SOD INJ 40 MG/0.4 ML SYR SC SCH (23:33)
[2020-02-12] VITALS (8 sets, daily range): BP systolic 114–146; BP diastolic 51–83
[2020-02-12] MEDS: SODIUM CHLORIDE 0.9% 1000ML 1,000 ML IV SCH ×3 (00:40→21:11)
[2020-02-12] MEDS: ACETAMINOPHEN 325 MG TAB PO PRN ×3 (01:13→22:21)
--- NOTE | 2020-02-12 02:50 | NUR ---
Patient resting with no distress noted at this time. RR even and unlabored. Patient has no complaints at this time.
--- NOTE | 2020-02-12 03:01 | History and Physical ---
CHIEF COMPLAINT: Fever. HISTORY OF PRESENT ILLNESS: This is a 59-year-old male, very poor historian, who came into the ED with complaints of acute onset of fever that began early this afternoon. The patient has multiple issues. Of note, he has a history of bipolar multiple psychiatric disorders, type 2 diabetes as well. The patient denies any recent travel, cough, congestion. He does have lower extremity redness that he reports is pretty chronic, but unsure if this is underlying cellulitis. Denies any diarrhea. No sick contacts at home. While here, the patient's coronavirus PCR was found to be negative. There is no reports of any shortness of breath as well. The patient is seen and evaluated in the emergency room. He is currently very stable. He is on room air with no complications at this time. REVIEW OF SYSTEMS: Pertinent positives: Fever, generalized weakness, and malaise. The rest of 14-point review of systems are reviewed with the patient and are negative. ALLERGIES: NO KNOWN DRUG ALLERGIES. HOME MEDICATIONS: He takes: 1. Aspirin. 2. Furosemide. 3. Glimepiride. 4. [place]. 5. Metformin. 6. Multivitamin. 7. Abilify. 8. Gabapentin. 9. Lantus. 10. [place]. PAST MEDICAL HISTORY: Type 2 diabetes, he is morbidly obese, hypertension, bipolar disorder, multiple psychiatric disorders. PAST SURGICAL HISTORY: Reports none. FAMILY HISTORY: Hypertension and diabetes. SOCIAL HISTORY: No drugs. No alcohol. Does not smoke. He lives with his mother. PHYSICAL EXAMINATION: VITAL SIGNS: Temperature is 98.9, T-max 102.6, pulse is 85, blood pressure is 106/70, 96% on 2 L nasal cannula, and respiratory rate is 19. He was stable when I evaluated him. GENERAL: Not in acute distress. Alert and oriented x3. HEENT: Head; normocephalic, atraumatic. Eyes; pupils are equal, round, and reactive to light bilaterally. Extraocular movements intact bilaterally. Throat; no evidence of erythema or exudates in the posterior pharynx. Has poor dentition. NECK: Supple. Good range of motion. PULMONARY: Clear to auscultation bilaterally. No wheezing, no rales, no rhonchi. CARDIOVASCULAR: Positive S1 and S2. No murmurs, rubs, or gallops appreciated. ABDOMEN: Soft. Nondistended, nontender to palpation. SKIN: Intact. Warm to touch. Good cap refill. PSYCHIATRIC: Normal affect and mood. EXTREMITIES: He does have some lower extremity edema with cellulitis noted. LABORATORY DATA: Show white count 13, hemoglobin 14, hematocrit is 44, platelets of 135. Chemistry; sodium 139, potassium 3.8, chloride 103, bicarb 23, anion gap of 17, BUN is 32, creatinine is 2.02, glucose 152, lactic acid 1.8, calcium 9.7, total bilirubin was 0.5, AST 30, ALT 50, alkaline phosphatase 137. CK 164. Troponin is negative. Total protein is 7.8, albumin is 4.3. Urinalysis negative. SEROLOGY: Coronavirus PCR was negative. Blood cultures are pending. DIAGNOSTIC STUDIES: Chest x-ray shows no evidence of any cardiopulmonary issues seen. IMPRESSION: 1. Fever, unknown etiology, could be secondary to underlying cellulitis. 2. Acute kidney injury versus chronic kidney disease, concerning for underlying dehydration. 3. Type 2 diabetes. 4. Bipolar disorder. PLAN: At this time, the etiology of his fever is unknown. White count is slightly elevated. Blood cultures are pending. UA was negative and chest x-ray was found to be negative. At this time, ID has been consulted. Coronavirus PCR was found to be negative. It seems like this patient may have an underlying viral etiology, but the source for his fever is unknown at this time. We will go ahead and place the patient on IV fluids. Due to his under underlying acute kidney injury, replace electrolytes accordingly. It seems he may have some underlying cellulitis as well, but he would not allow me to unwrap his wrappings. He will be on IV antibiotics and get wound care consulted. I will resume all his antipsychotic medications. Insulin sliding scale, Accu-Cheks, A1c. Lovenox for DVT prophylaxis. He will be on a heart healthy diet. Consultants involved wound care. ID and Pulmonary. MD WERNER Salter/VIJAY /[id number]
[2020-02-12 06:15] LABS: BASOPHILS # (AUTO) 0.1 (0.0-0.1); BASOPHILS % 0.3 % (0.0-1.0); EOSINOPHILS % 0.1 % (0.0-6.0); HEMOGLOBIN 13.5 g/dL (14.0-18.0); LYMPHOCYTES # (AUTO) 0.7 (1.0-3.2); LYMPHOCYTES % 4.1 % (18.0-39.1); MEAN CORPUSCULAR HEMOGLOBIN 29.7 pg (28-32); MEAN CORPUSCULAR HGB CONC 32.9 g/dL (31-35); MEAN CORPUSCULAR VOLUME 90.1 fL (81-99); MONOCYTES # (AUTO) 1.4 (0.2-0.8); MONOCYTES % 7.8 % (4.4-11.3); NEUTROPHILS # (AUTO) 15.4 (2.1-6.9); PLATELET COUNT 133 x10e3/uL (140-360); RED BLOOD COUNT 4.55 x10e6/uL (4.3-5.7); RED CELL DISTRIBUTION WIDTH 13.2 % (11.7-14.4)
[2020-02-12 06:48] LABS: ALBUMIN 3.7 g/dL (3.5-5.0); ALBUMIN/GLOBULIN RATIO 1.1 (0.8-2.0); ANION GAP 10.8 mmol/L (8-16); CALCIUM 8.9 mg/dL (8.4-10.2); CREATININE, SERUM 1.81 mg/dL (0.72-1.25); POTASSIUM 3.8 mmol/L (3.5-5.1)
--- NOTE | 2020-02-12 06:48 | NUR ---
Report to ANETA Fulton.
[2020-02-12] MEDS ORDERED: CEFEPIME 1GM/NS 0.9% 50 ML 50 ML IV SCH (08:15)
[2020-02-12] MEDS: PANTOPRAZOLE SOD 40 MG TABEC PO SCH (08:17)
[2020-02-12] MEDS: CITALOPRAM HYDROBROMIDE 20 MG TAB PO SCH (09:00)
[2020-02-12] MEDS: ASPIRIN 81 MG CHEW TAB PO SCH (09:00)
[2020-02-12] MEDS: AMLODIPINE BESYLATE 10 MG TAB PO SCH (09:00)
[2020-02-12] MEDS: FUROSEMIDE 40 MG TAB PO SCH (09:00)
[2020-02-12] MEDS ORDERED: LAMOTRIGINE 100 MG TAB PO SCH (09:00)
[2020-02-12] MEDS ORDERED: DEXTROSE 50% SYRINGE 50 ML IV PRN (10:45)
[2020-02-12] MEDS ORDERED: VANCOMYCIN 1GM/NS 250 ML 250 ML IV SCH (10:45)
[2020-02-12] MEDS ORDERED: GABAPENTIN 300 MG CAP PO PRN (10:45)
--- NOTE | 2020-02-12 11:40 | NUR ---
pt arrived to unit by wheel chair, pt aaox4.self ambulates.no resp.distress noted, oriented to the call light, bed locked and in lowest position.call light within reach. instructed to call for assistance as needed. pt stable at this time.
--- NOTE | 2020-02-12 11:51 | NUR ---
progress note [id number] sepsis on admission cellulitis left leg thrombophlebitis CKD DM
[2020-02-12] MEDS: LIDOCAINE 4% PATCH TP SCH (12:00)
--- NOTE | 2020-02-12 12:00 | NUR ---
Dr. Donte cooper to see pt.
[2020-02-12] MEDS: ALLOPURINOL 100 MG TAB PO SCH (13:27)
--- NOTE | 2020-02-12 15:40 | NUR ---
Dr. Bledsoe here to see pt.
[2020-02-12] MEDS ORDERED: METFORMIN HCL 500 MG TAB PO SCH (17:00)
[2020-02-12] MEDS: ENOXAPARIN SOD INJ 40 MG/0.4 ML SYR SC SCH (17:00)
--- NOTE | 2020-02-12 17:40 | NUR ---
Received patient from [facility]. Respiration even and unlabored without SOB. Denies pain. Call light in reach.
--- NOTE | 2020-02-12 18:07 | NUR ---
pt transferred to room 201 , ANETA Diehl the accepting nurse, pt stable.
--- NOTE | 2020-02-12 18:11 | Progress Note ---
DATE: SUBJECTIVE: Mr. Parkinson is currently lying in bed, comfortable. The right leg with significant redness and swelling. His first COVID was negative. His white count when he first came was 13.1, it went up to 17.6. His sodium 137, potassium 3.8, and creatinine 2.2, came down to 1.8. PHYSICAL EXAMINATION: GENERAL: He is currently alert, oriented, does not seem to be in acute distress. VITAL SIGNS: Stable, currently afebrile. HEENT: He is not icteric. NECK: Supple. CHEST: Clear. COR: S1, S2. ABDOMEN: Soft. EXTREMITIES: In the leg, there is redness, erythema involving the whole leg with streaking up his leg. IMPRESSION: 1. Cellulitis of the left leg with thrombophlebitis. 2. Diabetes mellitus. 3. Chronic kidney disease. 4. Schizophrenia. 5. Obesity. 6. Diabetes. PLAN: Continue cefepime 1 g q.12 and vancomycin 1 g q.24. Await blood cultures. Recheck CBC. Recheck Chem panel. He can be transferred to the floor if his COVID-19 is negative. Discussed with the patient and medical team. MD KELSEY Henry/VIJAY /[id number]
[2020-02-12] MEDS: GLYBURIDE 2.5 MG TAB PO SCH (18:22)
[2020-02-12] MEDS ORDERED: ARTIFICIAL TEARS (OPTH) 15 ML BTL OU PRN (18:45)
--- NOTE | 2020-02-12 19:00 | NUR ---
Report given to cotton sampler. Respiration even and unlabored. Call light in reach.
--- NOTE | 2020-02-12 19:08 | NUR ---
report given to oncoming nurse . pt stable at this time.
[2020-02-12] MEDS ORDERED: INSULIN GLARGINE 100 UNITS/ML VIAL SQ SCH (21:00)
[2020-02-12] MEDS: INSULIN GLARGINE 100 UNITS/ML VIAL SQ SCH (21:00)
[2020-02-12] MEDS: LAMOTRIGINE 100 MG TAB PO SCH (21:03)
[2020-02-12] MEDS: CEFEPIME 1GM/NS 0.9% 50 ML 50 ML IV SCH (21:03)
[2020-02-12] MEDS: ATORVASTATIN 40 MG TAB PO SCH (21:04)
[2020-02-12] MEDS: MIRTAZAPINE 15 MG TAB PO PRN (21:04)
[2020-02-13] VITALS (8 sets, daily range): BP systolic 123–137; BP diastolic 54–82
--- NOTE | 2020-02-13 01:22 | Progress Note ---
DATE: 02/12/2020 Medicine Progress Note SUBJECTIVE: The patient was seen early this morning at approximately 10:20 a.m. The patient had some fever overnight, in which we had to repeat his coronavirus. The patient was then transferred to the COVID unit and repeat coronavirus was found to be negative. The patient was then transferred back to the medical floor. PHYSICAL EXAMINATION: VITAL SIGNS: Temperature during my evaluation was 98.2, pulse 71, respiratory rate is 20, blood pressure 127/51, and pulse ox 96% on 2 L nasal cannula. GENERAL: Not in acute distress. Alert and oriented x3. Cooperative on examination. HEENT: Head; normocephalic, atraumatic. Eyes; pupils are equal, round, and reactive to light bilaterally. Extraocular movements intact bilaterally. Throat; no evidence of erythema or exudates in the posterior pharynx. Has poor dentition. NECK: Supple. Good range of motion. PULMONARY: Clear to auscultation bilaterally. No wheezing, no rales, no rhonchi, no crackles appreciated. CARDIOVASCULAR: Positive S1 and S2. No murmurs, rubs, or gallops appreciated. ABDOMEN: Soft, nondistended, and nontender to palpation. Bowel sounds present. NEUROLOGIC: No evidence of any neurological deficits on exam. SKIN: Intact. Warm to touch. Good cap refill. PSYCHIATRIC: Normal affect and mood. EXTREMITIES: No edema. Good range of motion throughout. He still has left lower extremity cellulitis warm to touch. LABORATORY DATA: White count 17.6, hemoglobin 13, hematocrit is 41 platelets of 133. Chemistry; sodium was 137, potassium 3.8, chloride 106, bicarb 24, anion gap of 10, BUN is 31, creatinine is 1.81, glucose 133. Lactic acid 1.8. LFTs within normal range. SEROLOGIES: Coronavirus PCR nondetected x2. MICROBIOLOGY: Blood cultures, no growth. IMAGING STUDIES: Lower extremity venous Doppler has been ordered. IMPRESSION: 1. Fever, unknown etiology, could be secondary to cellulitis in the left lower extremity. 2. Acute kidney injury versus chronic kidney disease secondary to dehydration. 3. Type 2 diabetes. 4. Bipolar disorder/schizophrenia. PLAN: At this time, the patient continues to have a fever. White count was elevated. Blood cultures are pending. Continue with IV antibiotic therapy. ID is following. Renal function improving. Continue with fluids. A.m. labs. Continue with insulin sliding scale, Accu-Cheks. Lovenox for DVT prophylaxis. Restart all antipsychotics that he is taking at home. Lovenox for DVT prophylaxis. Heart healthy diet. ID and Pulmonary consulted and following. MD WERNER Salter/VIJAY /[id number]
[2020-02-13] MEDS: ACETAMINOPHEN 325 MG TAB PO PRN ×2 (04:06→16:30)
[2020-02-13 05:19] LABS: BASOPHILS % 0.2 % (0.0-1.0); EOSINOPHILS # (AUTO) 0.1 (0.0-0.4); EOSINOPHILS % 0.4 % (0.0-6.0); HEMATOCRIT 37.7 % (38.2-49.6); HEMOGLOBIN 12.2 g/dL (14.0-18.0); LYMPHOCYTES % 7.7 % (18.0-39.1); MEAN CORPUSCULAR HEMOGLOBIN 29.8 pg (28-32); MEAN CORPUSCULAR HGB CONC 32.4 g/dL (31-35); MEAN CORPUSCULAR VOLUME 92.2 fL (81-99); MONOCYTES % 7.9 % (4.4-11.3); NEUTROPHILS # (AUTO) 10.4 (2.1-6.9); NEUTROPHILS % 83.4 % (38.7-80.0); PLATELET COUNT 130 x10e3/uL (140-360); RED BLOOD COUNT 4.09 x10e6/uL (4.3-5.7)
[2020-02-13 05:46] LABS: ANION GAP 12.7 mmol/L (8-16); CALCIUM 9.2 mg/dL (8.4-10.2); CREATININE, SERUM 1.45 mg/dL (0.72-1.25); POTASSIUM 3.7 mmol/L (3.5-5.1)
--- NOTE | 2020-02-13 07:00 | NUR ---
BEDSIDE SHIFT REPORT ROUNDS FROM ANETA ARRIAZA. PT DENIES NEEDS AT THIS TIME.
[2020-02-13] MEDS: ASPIRIN 81 MG CHEW TAB PO SCH (08:46)
[2020-02-13] MEDS: CEFEPIME 1GM/NS 0.9% 50 ML 50 ML IV SCH ×2 (08:46→21:20)
[2020-02-13] MEDS: ARIPIPRAZOLE 20 MG TAB PO SCH (08:46)
[2020-02-13] MEDS: FUROSEMIDE 40 MG TAB PO SCH (08:46)
[2020-02-13] MEDS: GLYBURIDE 2.5 MG TAB PO SCH ×2 (08:46→16:29)
[2020-02-13] MEDS: PANTOPRAZOLE SOD 40 MG TABEC PO SCH (08:46)
[2020-02-13] MEDS: CITALOPRAM HYDROBROMIDE 20 MG TAB PO SCH (08:46)
[2020-02-13] MEDS: MULTIVITAMINS/MINERALS TAB PO SCH (08:47)
[2020-02-13] MEDS: CHOLECALCIFEROL 400 UNIT TAB PO SCH (08:47)
[2020-02-13] MEDS: LIDOCAINE 4% PATCH TP SCH (08:47)
[2020-02-13] MEDS: ALLOPURINOL 100 MG TAB PO SCH (08:47)
[2020-02-13] MEDS: AMLODIPINE BESYLATE 10 MG TAB PO SCH (08:47)
--- NOTE | 2020-02-13 11:24 | Progress Note ---
DATE: SUBJECTIVE: The patient is seen and evaluated. Available labs and notes reviewed. Discussed with Dr. Bledsoe. REVIEW OF SYSTEMS: Feels much better. No shortness of breath, comfortable in chair. No nausea, vomiting, fever, chills, chest pain, shortness of breath, headache, rash, dysuria. OBJECTIVE: VITAL SIGNS: Temperature 98.5, pulse 82, respiration 18, and blood pressure 129/82. GENERAL: Alert and oriented, no acute distress, off O2 nasal cannula. CV: S1, S2. CHEST: Equal expansion. Slightly decreased breath sounds on the right posterior. ABDOMEN: Soft, obese, and nontender with positive bowel sounds. HEENT: Moist. No pallor. No JVD. EXTREMITIES: Left lower extremity pink and edema from the foot to mid thigh. No tenderness and temperature is the same as the right lower extremity. There is swelling of the bilateral lower legs, kind of cold. MEDICATIONS: Medication list reviewed. From Infectious Disease point of view, the patient is on cefepime and vancomycin IV was stopped yesterday. LABORATORY STUDIES: White count of 12.53, hemoglobin 12.2, platelet 130. Sodium 141, potassium 3.7 creatinine 1.45, improved from 1.81. Serology: Coronavirus PCR not detected x2 on 02/10 and 02/11. MICROBIOLOGY: Blood culture negative 24 hours. RADIOLOGY STUDIES: Chest x-ray showed no acute cardiopulmonary process. Also, he had a venous Doppler with the result pending. ASSESSMENT AND PLAN: 1. Cellulitis of the left lower extremity with thrombophlebitis. As I am dictating this note, venous Doppler result was handed to me and the venous Doppler was preliminary negative for DVT in the left lower extremity. The patient on cefepime and vancomycin dropped, continue the same. Continue with antibiotics. Elevate the lower extremity. Monitor progress of the cellulitis. 2. Fever resolved. Blood cultures negative. Coronavirus PCR is negative x2 as mentioned above. Chest x-ray also no acute cardiopulmonary process. Other medical conditions including diabetes. 3. Chronic kidney disease. 4. Schizophrenia. 5. Obesity. 6. Debility. 7. Discussed with Dr. Bledsoe in detail. We will continue to monitor the left lower extremity cellulitis. Continue with antibiotics. Please refer to the chart for more information. Dictated by Abhishek Valdez PA-C (Al) MD TUCKER Henry/VIJAY /[id number]
[2020-02-13] MEDS: ENOXAPARIN SOD INJ 40 MG/0.4 ML SYR SC SCH (16:29)
[2020-02-13] MEDS: SODIUM CHLORIDE 0.9% 1000ML 1,000 ML IV SCH (16:29)
[2020-02-13] MEDS: VANCOMYCIN 1GM/NS 250 ML 250 ML IV SCH (18:06)
[2020-02-13] MEDS: ATORVASTATIN 40 MG TAB PO SCH (21:22)
[2020-02-13] MEDS: INSULIN GLARGINE 100 UNITS/ML VIAL SQ SCH (21:22)
[2020-02-13] MEDS: LAMOTRIGINE 100 MG TAB PO SCH (21:22)
[2020-02-13] MEDS: MIRTAZAPINE 15 MG TAB PO PRN (21:23)
[2020-02-14] VITALS (8 sets, daily range): BP systolic 122–163; BP diastolic 57–93
[2020-02-14] MEDS: ACETAMINOPHEN 325 MG TAB PO PRN (01:14)
--- NOTE | 2020-02-14 01:41 | Progress Note ---
DATE: 02/13/2020 Medicine Progress Note SUBJECTIVE: The patient is doing well today. He was sitting in the chair with no issues. No overnight events. PHYSICAL EXAMINATION: VITAL SIGNS: Temperature is 98, pulse 76, respiratory rate 21, blood pressure 120/75, and pulse ox 97% on room air. GENERAL: In no acute distress. Alert and oriented x3. Cooperative on examination. HEENT: Head is normocephalic and atraumatic. Eyes; pupils are reactive to light bilaterally. Extraocular movements intact bilaterally. Throat; no evidence of erythema or exudates in the posterior pharynx. Has poor dentition. NECK: Supple. Good range of motion. PULMONARY: Clear to auscultation bilaterally. No wheezing, rales, or rhonchi. No crackles appreciated. CARDIOVASCULAR: Positive S1, S2. No murmurs, rubs, or gallops appreciated. ABDOMEN: Soft, nondistended, and nontender to palpation. Bowel sounds present. MUSCULOSKELETAL: Strength is 5/5 throughout. No evidence of any muscle deficits on examination. No weakness appreciated. NEUROLOGICAL: Cranial nerves II through XII grossly intact. No evidence of any neurological deficits. SKIN: Intact. Warm to touch. Good cap refill. PSYCHIATRIC: Normal affect and mood. EXTREMITIES: No edema. Good range of motion throughout. Left lower extremity still shows some evidence of cellulitis is extending up to the left upper thigh. LABORATORY DATA: White count 12.5, hemoglobin 12, hematocrit 37, platelets of 130. Chemistry; sodium 141, potassium 3.7, chloride 110, bicarb 22, anion gap of 12, BUN is 22 and creatinine is 1.45, and glucose is 191, calcium 9.2. LFTs are normal. MICROBIOLOGY: Blood cultures, no growth to date. DIAGNOSTIC STUDIES: Lower extremity venous Doppler shows no evidence of any DVT in the left lower extremity. IMPRESSION: 1. Fever, likely secondary to underlying cellulitis in the left lower extremity. 2. Acute kidney injury versus chronic kidney disease secondary to dehydration, improving. 3. Type 2 diabetes. 4. Bipolar disorder with history of schizophrenia. PLAN: At this time, his white count has improved. He is afebrile. Continue with IV antibiotics. Blood cultures, no growth. ID is following closely. Renal function improved. Continue with fluids, electrolyte replacement. Continue with insulin sliding scale and Accu-Cheks. Lovenox for DVT prophylaxis. Heart healthy diet. ID and Pulmonary following. MD WERNER Salter/VIJAY /[id number]
[2020-02-14 05:34] LABS: BASOPHILS % 0.4 % (0.0-1.0); EOSINOPHILS # (AUTO) 0.1 (0.0-0.4); EOSINOPHILS % 1.4 % (0.0-6.0); HEMATOCRIT 40.1 % (38.2-49.6); HEMOGLOBIN 12.7 g/dL (14.0-18.0); LYMPHOCYTES # (AUTO) 1.3 (1.0-3.2); LYMPHOCYTES % 12.4 % (18.0-39.1); MEAN CORPUSCULAR HEMOGLOBIN 29.7 pg (28-32); MEAN CORPUSCULAR HGB CONC 31.7 g/dL (31-35); MEAN CORPUSCULAR VOLUME 93.7 fL (81-99); MONOCYTES # (AUTO) 0.8 (0.2-0.8); MONOCYTES % 7.3 % (4.4-11.3); NEUTROPHILS % 78.1 % (38.7-80.0); PLATELET COUNT 170 x10e3/uL (140-360); RED BLOOD COUNT 4.28 x10e6/uL (4.3-5.7); RED CELL DISTRIBUTION WIDTH 13.5 % (11.7-14.4)
[2020-02-14] MEDS: SODIUM CHLORIDE 0.9% 1000ML 1,000 ML IV SCH (05:59)
[2020-02-14] MEDS: VANCOMYCIN 1GM/NS 250 ML 250 ML IV SCH ×2 (05:59→18:01)
[2020-02-14 06:01] LABS: ANION GAP 13.5 mmol/L (8-16); CALCIUM 9.7 mg/dL (8.4-10.2); CREATININE, SERUM 1.38 mg/dL (0.72-1.25); POTASSIUM 4.5 mmol/L (3.5-5.1)
--- NOTE | 2020-02-14 07:00 | NUR ---
BEDSIDE SHIFT REPORT ROUNDS FROM ANETA ARRIAZA. PT DENIES NEEDS AT THIS TIME.
[2020-02-14] MEDS: PANTOPRAZOLE SOD 40 MG TABEC PO SCH (08:31)
[2020-02-14] MEDS: CITALOPRAM HYDROBROMIDE 20 MG TAB PO SCH (08:33)
[2020-02-14] MEDS: CEFEPIME 1GM/NS 0.9% 50 ML 50 ML IV SCH ×2 (08:33→21:21)
[2020-02-14] MEDS: FUROSEMIDE 40 MG TAB PO SCH (08:33)
[2020-02-14] MEDS: ASPIRIN 81 MG CHEW TAB PO SCH (08:33)
[2020-02-14] MEDS: GLYBURIDE 2.5 MG TAB PO SCH ×2 (08:33→18:01)
[2020-02-14] MEDS: ARIPIPRAZOLE 20 MG TAB PO SCH (08:33)
[2020-02-14] MEDS: MULTIVITAMINS/MINERALS TAB PO SCH (08:33)
[2020-02-14] MEDS: ALLOPURINOL 100 MG TAB PO SCH (08:34)
[2020-02-14] MEDS: AMLODIPINE BESYLATE 10 MG TAB PO SCH (08:34)
[2020-02-14] MEDS: LIDOCAINE 4% PATCH TP SCH (08:34)
[2020-02-14] MEDS: CHOLECALCIFEROL 400 UNIT TAB PO SCH (08:34)
--- NOTE | 2020-02-14 11:38 | Progress Note ---
DATE: SUBJECTIVE: The patient is seen and evaluated. Available labs and notes reviewed. Discussed with the nurse. REVIEW OF SYSTEMS: Complained of a headache that is not new, also had diarrhea yesterday which resolved. Has not had any bowel movement today. He eats okay. He thinks his left leg is not improving fast enough. No fever, no chills, no nausea, no vomiting, no rash. PHYSICAL EXAMINATION: VITAL SIGNS: Temperature 97.7, pulse 76, respiration 18, and blood pressure 163/93. GENERAL: Alert and oriented, very pleasant, sitting in a chair. CV: S1, S2. CHEST: Equal expansion. Clear to auscultation. No acute distress. ABDOMEN: Soft, obese, nontender. Bowel sounds positive in four quadrants. HEENT: Moist. No pallor. No JVD. EXTREMITIES: Left lower extremity edema and erythema, I think it is slightly improved especially on his thigh area, however, very minimal improvement. MEDICATIONS: Medication list reviewed. As far as Infectious Disease point of view, the patient is on cefepime and vancomycin IV. LABORATORY STUDIES: White count 10.26, improved from 12.53; hemoglobin 12.7, platelet 170, improved from 10/11. Sodium 142, potassium 4.5, creatinine 1.38, improved from 1.45; vancomycin random was 4.7. Serology: Coronavirus PCR, 02/10 and 02/11 negative. MICROBIOLOGY: Blood culture negative x2 on 02/11/2020 for 48 hours. RADIOLOGY STUDIES: Left lower extremity venous Doppler negative for DVT. Chest x-ray on 02/11/2020 showed no acute cardiopulmonary process. ASSESSMENT AND PLAN: 1. Left lower extremity cellulitis with thrombophlebitis. Doppler negative for DVT. 2. Fever resolved. 3. Chronic kidney disease. 4. Schizophrenia. 5. Obesity and debility. The patient is on cefepime and vancomycin IV. Vancomycin IV was on hold secondary to level, I received a call last night with vancomycin random. The patient restarted back on vancomycin 1 g IV piggyback q.12 hours. We will monitor the left lower extremity cellulitis. Also, remains on cefepime. Advised the patient to elevate his leg and sit in a recliner instead of just plain chair. Please refer to chart for more information. Discussed with Dr. Bledsoe in detail. Dictated by Abhishek Valdez PA-C (Al) MD TUCKER Henry/VIJAY /[id number]
--- NOTE | 2020-02-14 13:34 | Progress Note ---
DATE: SUBJECTIVE: The patient is afebrile. He still has redness and erythema of the left lower extremity. PHYSICAL EXAMINATION: VITAL SIGNS: The blood pressure is 141/83 and the saturation is 98%, pulse is 83, respiratory rate is 18. HEENT: Shows no facial swelling or erythema. CARDIAC: Reveals regular rate and rhythm with normal S1, S2. LUNGS: Auscultation of lungs shows clear breath sounds bilaterally. There is no wheezing. ABDOMEN: Soft and nontender. There is no rebound or guarding. EXTREMITIES: Examination shows left lower extremity swelling and tenderness. There is erythema extending up into the thigh. IMPRESSION: 1. Cellulitis with sepsis, present on admission. 2. Acute kidney injury. 3. Diabetes. 4. Bipolar disorder. 5. Hypertension. PLAN: 1. Continue current antibiotics. 2. Monitor blood pressure. 3. Continue to monitor renal function. 4. Monitor blood sugars and give insulin as needed. Pollo Giron MD [facility]/VIJAY /[id number]
[2020-02-14] MEDS: ENOXAPARIN SOD INJ 40 MG/0.4 ML SYR SC SCH (18:01)
[2020-02-14] MEDS: LAMOTRIGINE 100 MG TAB PO SCH (21:21)
[2020-02-14] MEDS: ATORVASTATIN 40 MG TAB PO SCH (21:21)
[2020-02-14] MEDS: MIRTAZAPINE 15 MG TAB PO PRN (21:21)
[2020-02-14] MEDS: INSULIN GLARGINE 100 UNITS/ML VIAL SQ SCH (21:22)
[2020-02-15] VITALS (8 sets, daily range): BP systolic 126–149; BP diastolic 64–83
--- NOTE | 2020-02-15 01:07 | Progress Note ---
DATE: 02/14/2020 Medicine Progress Note SUBJECTIVE: The patient was evaluated approximately 1:30 p.m. this afternoon. He was doing well with no complaints. Left lower extremity cellulitis is still there and present. White count improved. PHYSICAL EXAMINATION: VITAL SIGNS: He is afebrile, normotensive. Respiratory rate is good. He is on room air. GENERAL: Not in acute distress. Alert and oriented x3. Cooperative on examination. HEENT: Head normocephalic, atraumatic. . Eyes; pupils are equal, round, and reactive to light bilaterally. PULMONARY: Clear to auscultation bilaterally. No wheezing, rales, or rhonchi. No crackles appreciated. CARDIOVASCULAR: Positive S1, S2. No murmurs, rubs, or gallops appreciated. ABDOMEN: Soft, nondistended, and nontender to palpation. Bowel sounds present. MUSCULOSKELETAL: Strength is 5/5 throughout. No evidence of any muscle deficits on examination. No weakness appreciated. NEUROLOGIC: Cranial nerves 2 through 12 grossly intact. SKIN: Intact. He does have a left lower extremity cellulitis. This still erythematic, warm to touch. It is very swollen. EXTREMITIES: No edema. Good range of motion throughout. LABORATORY DATA: CBC reviewed, stable. Chemistry reviewed, stable. Creatinine down trending. Microbiology, blood cultures no growth today. IMAGING STUDIES: Nothing new. IMPRESSION: 1. Fever secondary to the left lower extremity cellulitis. 2. Acute kidney injury, improving. 3. Type 2 diabetes. 4. Bipolar with history of schizophrenia. PLAN: At this time, white count normal. He is afebrile, normotensive doing well. Blood cultures, no growth. Continue with aggressive IV antibiotic therapy, which has been rearranged and changed by ID. ID is following. Local wound care physician. Lovenox for DVT prophylaxis. Heart healthy diabetic diet. MD WERNER Salter/MODL /[id number]
[2020-02-15] MEDS: VANCOMYCIN 1GM/NS 250 ML 250 ML IV SCH ×2 (06:00→18:15)
--- NOTE | 2020-02-15 07:00 | NUR ---
BEDSIDE SHIFT REPORT ROUNDS FROM ANETA ARRIAZA. PT DENIES NEEDS AT THIS TIME.
[2020-02-15] MEDS: PANTOPRAZOLE SOD 40 MG TABEC PO SCH (09:21)
[2020-02-15] MEDS: CITALOPRAM HYDROBROMIDE 20 MG TAB PO SCH (09:21)
[2020-02-15] MEDS: CEFEPIME 1GM/NS 0.9% 50 ML 50 ML IV SCH ×2 (09:21→21:00)
[2020-02-15] MEDS: GLYBURIDE 2.5 MG TAB PO SCH ×2 (09:21→18:15)
[2020-02-15] MEDS: ARIPIPRAZOLE 20 MG TAB PO SCH (09:21)
[2020-02-15] MEDS: ASPIRIN 81 MG CHEW TAB PO SCH (09:21)
[2020-02-15] MEDS: MULTIVITAMINS/MINERALS TAB PO SCH (09:22)
[2020-02-15] MEDS: ALLOPURINOL 100 MG TAB PO SCH (09:23)
[2020-02-15] MEDS: AMLODIPINE BESYLATE 10 MG TAB PO SCH (09:23)
[2020-02-15] MEDS: CHOLECALCIFEROL 400 UNIT TAB PO SCH (09:23)
[2020-02-15] MEDS: LIDOCAINE 4% PATCH TP SCH (09:24)
[2020-02-15] MEDS: FUROSEMIDE 40 MG TAB PO SCH (09:25)
--- NOTE | 2020-02-15 11:09 | Progress Note ---
DATE: SUBJECTIVE: The patient is seen and evaluated. Discussed with the nurse. No new events. REVIEW OF SYSTEMS: The patient states that his leg feels better. No nausea, vomiting, fever, chills, chest pain, shortness of breath, headache, rash, dysuria. PHYSICAL EXAMINATION: VITAL SIGNS: Temperature 99.2, pulse 76, respiration 19, and blood pressure 135/93. GENERAL: Alert and oriented, very pleasant, in no acute distress. Ambulatory. CV: S1-S2. CHEST: Equal expansion. Clear to auscultation. No acute distress. ABDOMEN: Soft, obese, nontender. Positive bowel sounds. HEENT: Moist. No pallor. No JVD. EXTREMITIES: Marked improvement from cellulitis of the left lower extremity, which was all the way to the midthigh on the left side, however, significant decrease in erythema or edema. The patient ambulates at more ease. MEDICATIONS: Medication list reviewed from Infectious Disease point of view, the patient is on cefepime and vancomycin IV. LABORATORY STUDIES: White blood cells 10.36, hemoglobin 12.7, platelet 170 improved. Sodium 142, which is not new. I do not have a new BMP. Toxicology; vancomycin trough 9.8. Serology: Coronavirus PCR not detected on 02/10 and 02/11. MICROBIOLOGY: Blood culture negative x2 for 72 hours. RADIOLOGY STUDIES: No new radiology studies available. ASSESSMENT AND PLAN: 1. Cellulitis of the left lower extremity with thrombophlebitis. 2. Schizophrenia. 3. Obesity/debility. 4. Fever resolved. The patient is on vancomycin IV and cefepime. Vancomycin trough was 9.8 yesterday morning. We will continue the same dosage of vancomycin since the patient's leg has improved significantly. Continue the elevation of the lower extremities. The patient's creatinine is 1.38. Continue to monitor the patient. Clinically follow with the labs. Again, the creatinine has improved. Discussed with Dr. Bledsoe in details. Further management of this patient based on daily findings on laboratory and physical examination. Refer to chart for more information. Dictated by Abhishek Valdez PA-C (Al) Gurpreet Bledsoe MD /MODL /[id number]
[2020-02-15] MEDS: ENOXAPARIN SOD INJ 40 MG/0.4 ML SYR SC SCH (18:15)
[2020-02-15] MEDS: ATORVASTATIN 40 MG TAB PO SCH (21:00)
[2020-02-15] MEDS: LAMOTRIGINE 100 MG TAB PO SCH (21:00)
[2020-02-15] MEDS: INSULIN GLARGINE 100 UNITS/ML VIAL SQ SCH (21:20)
--- NOTE | 2020-02-15 23:36 | Progress Note ---
DATE: 02/15/2020 Medicine Progress Note SUBJECTIVE: The patient's left lower extremity cellulitis is improving, but still very red on exam. The swelling has improved tremendously. PHYSICAL EXAMINATION: VITAL SIGNS: Temperature was 98.6, pulse 67, respiratory rate is 20, blood pressure 130/82, pulse ox 98% on room air. GENERAL: Not in acute distress. Alert and oriented x3. Cooperative on examination. HEENT: Head is normocephalic, atraumatic. Eyes; pupils are equal, round, and reactive to light bilaterally. PULMONARY: Clear to auscultation bilaterally. No wheezing, rales, or rhonchi. No crackles appreciated. CARDIOVASCULAR: Positive S1, S2. No murmurs, rubs, or gallops. ABDOMEN: Soft, nondistended, and nontender to palpation. Bowel sounds present. MUSCULOSKELETAL: Strength is 5/5 throughout. No evidence of any muscle deficits on examination. NEUROLOGIC: Alert and oriented x3. SKIN: Intact. Warm to touch. Good cap refill. PSYCHIATRIC: Normal affect and mood. EXTREMITIES: He has a left lower extremity cellulitis with warm erythema, much improved. Swelling is down. Nontender to palpation. LABORATORY DATA: Labs show white count 10.2, hemoglobin 12.7, hematocrit is 40, platelets of 170. Chemistry none today. Serologies coronavirus negative x2. Blood cultures no growth. IMAGING STUDIES: None new. IMPRESSION: 1. Fever secondary to left lower extremity cellulitis. 2. Acute kidney injury-improving. 3. Type 2 diabetes. 4. History of bipolar as well as schizophrenia. PLAN: At this time, his white count has improved tremendously. He is afebrile, normotensive. Continue with broad-spectrum IV antibiotics being managed by ID. Blood cultures, no growth. Encourage ambulation. Lovenox for DVT prophylaxis. Heart healthy diabetic diet. MD WERNER Salter/MODL /[id number]
[2020-02-16] VITALS (8 sets, daily range): BP systolic 106–158; BP diastolic 65–84
[2020-02-16] MEDS: VANCOMYCIN 1GM/NS 250 ML 250 ML IV SCH ×2 (05:33→16:52)
[2020-02-16] MEDS: LIDOCAINE 4% PATCH TP SCH (09:00)
[2020-02-16] MEDS: ALLOPURINOL 100 MG TAB PO SCH (09:30)
[2020-02-16] MEDS: MULTIVITAMINS/MINERALS TAB PO SCH (09:30)
[2020-02-16] MEDS: CITALOPRAM HYDROBROMIDE 20 MG TAB PO SCH (09:30)
[2020-02-16] MEDS: PANTOPRAZOLE SOD 40 MG TABEC PO SCH (09:30)
[2020-02-16] MEDS: GLYBURIDE 2.5 MG TAB PO SCH ×2 (09:30→16:52)
[2020-02-16] MEDS: CEFEPIME 1GM/NS 0.9% 50 ML 50 ML IV SCH (09:30)
[2020-02-16] MEDS: ASPIRIN 81 MG CHEW TAB PO SCH (09:30)
[2020-02-16] MEDS: FUROSEMIDE 40 MG TAB PO SCH (09:30)
[2020-02-16] MEDS: AMLODIPINE BESYLATE 10 MG TAB PO SCH (09:30)
[2020-02-16] MEDS: CHOLECALCIFEROL 400 UNIT TAB PO SCH (09:30)
[2020-02-16] MEDS: ARIPIPRAZOLE 20 MG TAB PO SCH (09:30)
--- NOTE | 2020-02-16 13:08 | Progress Note ---
DATE: SUBJECTIVE: The patient has less swelling and redness in his leg. He has still some erythema. He denies any pain. PHYSICAL EXAMINATION: VITAL SIGNS: The blood pressure is 134/74 and saturation is 97%. The pulse is 80. HEENT: Shows no facial swelling or erythema. CARDIAC: Reveals regular rate and rhythm with normal S1 and S2. LUNGS: Auscultation of lungs reveals rhonchorous breath sounds bilaterally. There is no wheezing. ABDOMEN: Soft and nontender. There is no rebound or guarding. EXTREMITIES: Erythema and swelling of the left leg. There is some tenderness. LABORATORY DATA: Blood sugars are within normal limits. IMPRESSION: 1. Cellulitis with sepsis, present on admission. 2. Acute kidney injury. 3. Diabetes. 4. Bipolar illness. PLAN: 1. Complete antibiotics. 2. Continue to monitor creatinine and renal function. 3. Monitor blood sugars and adjust insulin as needed. Pollo Giron MD [facility]/VIJAY /[id number]
--- NOTE | 2020-02-16 15:39 | NUR ---
Nutrition Screen Note RD Recommendation for Physician: -Recommend 1800 kcal ADA/cardiac diet Plan of Care: RD following, monitoring for tolerance and adequacy Nutrition reason for involvement: Length of stay Primary Diagnose(s): Cellulitis of the left leg PMH: lower extremity dermatitis and lymphedema, Diabetes, Hypertension, Bipolar disorder, Chronic kidney disease. Ht: 70 in Wt:280 lb BMI: 40.3 kg/m2 IBW: [address] Assessment: (02/16/20) Chart reviewed. Labs and meds reviewed. Pt is a 59 year old male with cellulitis of left leg. It is recorded that pt has been consuming 75-100% of meals during admission. No significant weight loss is evident per weight history. Will continue to monitor Current Diet: cardiac Malnutrition Evaluation (02/16/20) The patient does not meet criteria for a specified degree of malnutrition at this time. Will re-evaluate at follow-up as appropriate. Diet Education Needs Assessment: RD is available for diet education as needed Nutrition Care Level: low Signed: Kenyetta Espana, RD, LD
--- NOTE | 2020-02-16 16:25 | Progress Note ---
DATE: 02/16/2020 Medicine Progress Note. SUBJECTIVE: The patient doing much better today with no complaints. Left lower extremity cellulitis improved tremendously. PHYSICAL EXAMINATION: VITAL SIGNS: Temperature 97.8, pulse 80, respiratory rate 18, blood pressure 134/74, pulse ox 97% on room air. GENERAL: Not in acute distress. Alert and oriented x3. Cooperative on examination. HEENT: Head is normocephalic, atraumatic. Eyes; pupils are equal, round, and reactive to light bilaterally. PULMONARY: Clear to auscultation bilaterally. No wheezing, rales, or rhonchi. No crackles appreciated. CARDIOVASCULAR: Positive S1, S2. No murmurs, rubs, or gallops. ABDOMEN: Soft, nondistended, and nontender to palpation. Bowel sounds present. SKIN: Left lower extremity erythema and redness has improved tremendously, very mild tender to palpation, very mild, warm to touch. EXTREMITIES: No edema. LABORATORY DATA: White count 10.2, hemoglobin 12, hematocrit is 40, platelets of 170. Chemistry none today. MICROBIOLOGY: Noted within normal range, negative. IMPRESSION: 1. Fever secondary to left lower extremity cellulitis. 2. Acute kidney injury-improved. 3. Type 2 diabetes. 4. History of bipolar/schizophrenia. PLAN: At this time, his white count is better. Continue with IV antibiotic therapy. His left lower extremity cellulitis improved tremendously. Possible discharge on Tuesday. ID is following. Lovenox for DVT prophylaxis. MD WERNER Salter/MODL /[id number]
[2020-02-16] MEDS: ENOXAPARIN SOD INJ 40 MG/0.4 ML SYR SC SCH (17:15)
[2020-02-16] MEDS: LINEZOLID 600 MG/D5W 300ML 300 ML IV SCH (18:54)
[2020-02-16] MEDS: ATORVASTATIN 40 MG TAB PO SCH (20:24)
[2020-02-16] MEDS: LAMOTRIGINE 100 MG TAB PO SCH (20:24)
[2020-02-16] MEDS: INSULIN GLARGINE 100 UNITS/ML VIAL SQ SCH (20:55)
--- NOTE | 2020-02-16 21:51 | Progress Note ---
DATE: SUBJECTIVE: Mr. Parkinson is up in a chair, doing well. There is no new complaint. He says he is slowly getting better. The leg is still red, but he states he is feeling better. REVIEW OF SYSTEMS: HEENT: Negative. PULMONARY: Negative. CARDIAC: Negative. PHYSICAL EXAMINATION: GENERAL: He is currently alert, oriented, obese, does not seem to be in acute distress. VITAL SIGNS: Stable, afebrile. HEENT: Not icteric. NECK: Supple. CHEST: Clear bilateral. HEART: S1, S2. No S3, S4, or murmur. ABDOMEN: Soft and obese. No tenderness. No hepatomegaly. EXTREMITIES: Has edema. The legs as mentioned above with still redness and swelling. LABORATORY DATA: His cultures remain negative. His white count is down to 10.4. His COVID twice was negative. His vancomycin level was 9.8. His sodium 142, potassium 4.5, creatinine 1.38. IMPRESSION: 1. Cellulitis of the leg, very slow progress. I am going to discontinue cefepime, vancomycin, put him on Zyvox. 2. Chronic kidney disease. 3. Obesity. 4. Gout. 5. Diabetes mellitus. 6. We will reassess clinically. MD KELSEY Henry/VIJAY /[id number]
[2020-02-17] VITALS (7 sets, daily range): BP systolic 111–136; BP diastolic 57–80
[2020-02-17] MEDS: LINEZOLID 600 MG/D5W 300ML 300 ML IV SCH ×2 (05:55→18:30)
[2020-02-17 06:25] LABS: BASOPHILS # (AUTO) 0.1 (0.0-0.1); BASOPHILS % 0.5 % (0.0-1.0); EOSINOPHILS # (AUTO) 0.2 (0.0-0.4); EOSINOPHILS % 1.9 % (0.0-6.0); HEMATOCRIT 41.6 % (38.2-49.6); HEMOGLOBIN 13.6 g/dL (14.0-18.0); LYMPHOCYTES # (AUTO) 1.1 (1.0-3.2); LYMPHOCYTES % 10.5 % (18.0-39.1); MEAN CORPUSCULAR HEMOGLOBIN 29.6 pg (28-32); MEAN CORPUSCULAR HGB CONC 32.7 g/dL (31-35); MEAN CORPUSCULAR VOLUME 90.4 fL (81-99); MONOCYTES # (AUTO) 0.7 (0.2-0.8); NEUTROPHILS # (AUTO) 7.9 (2.1-6.9); NEUTROPHILS % 79.1 % (38.7-80.0); PLATELET COUNT 237 x10e3/uL (140-360); RED CELL DISTRIBUTION WIDTH 12.7 % (11.7-14.4)
[2020-02-17 07:08] LABS: ANION GAP 16.3 mmol/L (8-16); CALCIUM 9.6 mg/dL (8.4-10.2); CREATININE, SERUM 1.38 mg/dL (0.72-1.25); POTASSIUM 4.3 mmol/L (3.5-5.1)
[2020-02-17] MEDS: ASPIRIN 81 MG CHEW TAB PO SCH (08:32)
[2020-02-17] MEDS: CITALOPRAM HYDROBROMIDE 20 MG TAB PO SCH (08:32)
[2020-02-17] MEDS: ALLOPURINOL 100 MG TAB PO SCH (08:32)
[2020-02-17] MEDS: GLYBURIDE 2.5 MG TAB PO SCH ×2 (08:32→16:50)
[2020-02-17] MEDS: MULTIVITAMINS/MINERALS TAB PO SCH (08:32)
[2020-02-17] MEDS: AMLODIPINE BESYLATE 10 MG TAB PO SCH (08:32)
[2020-02-17] MEDS: LIDOCAINE 4% PATCH TP SCH (08:32)
[2020-02-17] MEDS: PANTOPRAZOLE SOD 40 MG TABEC PO SCH (08:32)
[2020-02-17] MEDS: ARIPIPRAZOLE 20 MG TAB PO SCH (08:32)
[2020-02-17] MEDS: FUROSEMIDE 40 MG TAB PO SCH (08:32)
[2020-02-17] MEDS: CHOLECALCIFEROL 400 UNIT TAB PO SCH (08:32)
--- NOTE | 2020-02-17 12:27 | Progress Note ---
DATE: SUBJECTIVE: The patient feels better overall. He still has some leg swelling. PHYSICAL EXAMINATION: VITAL SIGNS: The blood pressure is 122/64 and the saturation is 96%. HEENT: Shows no facial swelling or erythema. CARDIAC: Reveals regular rate and rhythm with normal S1 and S2. LUNGS: Auscultation of lungs reveals clear breath sounds bilaterally. There is no wheezing. ABDOMEN: Soft and nontender. There is no rebound or guarding. EXTREMITIES: Shows swelling and erythema in the left leg. LABORATORY DATA: White blood cell count is 9.9, hemoglobin is 13.6, and the platelet count is 237. BUN to creatinine ratio is 8 to 1.38. Electrolytes within normal limits. IMPRESSION: 1. Cellulitis with sepsis, present on admission. 2. Acute kidney injury. 3. Type 2 diabetes. PLAN: 1. Continue antibiotics. 2. Continue to monitor blood sugar and treat with insulin as needed. 3. Continue to monitor creatinine. Pollo Giron MD Yareli/VIJAY /[id number]
--- NOTE | 2020-02-17 14:40 | NUR ---
INFECTIOUS DISEASE PROGRESS NOTE DR. HUNG HAMEED leg redness and pain, fatigue 14 point ROS neg unless otherwise noted PHYSICAL EXAM GENERAL: Awake, alert HEENT: normocephalic, atraumatic NECK: no JVD CV: s1, s2, without s3, s4 CHEST: CLAB ABD: obese, soft EXT: moves all, edema BLE +2 NEURO: intact LABS: REVIEWED RADIOLOGY: REVIEWED IMPRESSION: 1. Cellulitis leg 2. CKD 3. Obesity 4. Gout 5. T2DM PLAN: Zyvox, monitor response clinically. Monitor plts on Zyvox. DISCUSSED WITH DR. PERSAUD
[2020-02-17] MEDS: ENOXAPARIN SOD INJ 40 MG/0.4 ML SYR SC SCH (16:50)
--- NOTE | 2020-02-17 17:54 | Progress Note ---
DATE: 02/17/2020 Medicine Progress Note SUBJECTIVE: The patient's left lower extremity is improved tremendously. He is now on Zyvox per ID recommendations. PHYSICAL EXAMINATION: VITAL SIGNS: Temperature is 98.4, pulse 67, respiratory rate is 17, blood pressure 121/80, and pulse ox 94% on room air. GENERAL: Not in acute distress. Alert and oriented x3. Cooperative on examination. PULMONARY: Clear to auscultation bilaterally. No wheezing, no rales, no rhonchi, no crackles appreciated. CARDIOVASCULAR: Positive S1 and S2. No murmurs, rubs, or gallops appreciated. ABDOMEN: Soft, nondistended, and nontender to palpation. Bowel sounds present. MUSCULOSKELETAL: Strength is 5/5 throughout. No evidence of any muscle deficits on examination. No weakness appreciated. NEUROLOGIC: Alert and oriented x3. SKIN: Intact. Warm to touch. Good cap refill. PSYCHIATRIC: Normal affect and mood. EXTREMITIES: He has left lower extremity cellulitis, has improved tremendously. Still erythematic, but much improved. Not warm to touch and the borders where his cellulitis was has improved tremendously. LABORATORY FINDINGS: Show white count 9.9, hemoglobin 13.6, hematocrit is 41.6, and platelets of 237. Chemistry; sodium 140, potassium 4.3, chloride 107, bicarb 29, anion gap of 16, BUN is 18, creatinine is 1.38, and calcium is 9.6. MICROBIOLOGY: Blood cultures were negative. IMAGING STUDIES: None. IMPRESSION: 1. Fever secondary to left lower extremity cellulitis. 2. Acute kidney injury. 3. Type 2 diabetes. 4. History of bipolar/schizophrenia. PLAN: At this time, white count is improved. He is on Zyvox now per ID recommendations. I spoke with ID and give him some oral Zyvox on discharge. Lovenox for DVT prophylaxis. Plan to discharge tomorrow. MD WERNER Salter/DASIAL /[id number]
[2020-02-17] MEDS: INSULIN GLARGINE 100 UNITS/ML VIAL SQ SCH (20:40)
[2020-02-17] MEDS: ATORVASTATIN 40 MG TAB PO SCH (21:09)
[2020-02-17] MEDS: LAMOTRIGINE 100 MG TAB PO SCH (21:09)
[2020-02-17] MEDS: MIRTAZAPINE 15 MG TAB PO PRN (21:12)
[2020-02-18] VITALS: BP 115/53
[2020-02-18 04:00] VITALS: BP 121/70
[2020-02-18] MEDS: LINEZOLID 600 MG/D5W 300ML 300 ML IV SCH (05:40)
[2020-02-18 06:21] LABS: CALCIUM 9.8 mg/dL (8.4-10.2); CREATININE, SERUM 1.47 mg/dL (0.72-1.25)
--- NOTE | 2020-02-18 07:00 | NUR ---
BEDSIDE SHIFT REPORT RECEIVED FROM SERVICES COORDINATOR RN. PT DENIES NEEDS AT THIS TIME.
[2020-02-18 08:08] VITALS: BP 116/69
[2020-02-18] MEDS: PANTOPRAZOLE SOD 40 MG TABEC PO SCH (08:50)
[2020-02-18] MEDS: CITALOPRAM HYDROBROMIDE 20 MG TAB PO SCH (08:50)
[2020-02-18] MEDS: GLYBURIDE 2.5 MG TAB PO SCH (08:50)
[2020-02-18] MEDS: ARIPIPRAZOLE 20 MG TAB PO SCH (08:50)
[2020-02-18] MEDS: ASPIRIN 81 MG CHEW TAB PO SCH (08:50)
[2020-02-18] MEDS: ALLOPURINOL 100 MG TAB PO SCH (08:52)
[2020-02-18] MEDS: AMLODIPINE BESYLATE 10 MG TAB PO SCH (08:52)
[2020-02-18] MEDS: MULTIVITAMINS/MINERALS TAB PO SCH (08:52)
[2020-02-18] MEDS: CHOLECALCIFEROL 400 UNIT TAB PO SCH (08:52)
[2020-02-18] MEDS: LIDOCAINE 4% PATCH TP SCH (08:52)
[2020-02-18] MEDS: FUROSEMIDE 40 MG TAB PO SCH (08:52)
[2020-02-18 09:15] VITALS: BP 116/69
--- NOTE | 2020-02-18 10:03 | NUR ---
IMM letter delivered and explained to pt. He verbalized understanding. Signed copy placed in chart. Copy to pt.
[2020-02-18 12:06] VITALS: BP 130/72
--- NOTE | 2020-02-18 12:29 | Progress Note ---
DATE: SUBJECTIVE: The patient is seen and evaluated. Available labs and notes reviewed. Discussed with Dr. Bledsoe. Please refer to chart for more information. The patient is happy with the progress and wants to go home. REVIEW OF SYSTEMS: No nausea, vomiting, fever, chills, chest pain, shortness of breath, headache, rash, dysuria, or polyuria. MEDICATIONS: Medication list is reviewed. From Infectious Disease point of view, the patient is on Zyvox. LABORATORY STUDIES: White blood cells of 9.96, hemoglobin 13.6, and platelet 237. Sodium 142, potassium 4, and creatinine 1.47. Serology: Coronavirus PCR negative on 02/10 and 02/11. MICROBIOLOGY: Blood culture negative on 02/10. RADIOLOGY STUDIES: No new radiology studies available. PHYSICAL EXAMINATION: VITAL SIGNS: Temperature 98, pulse 66, respirations 18, and blood pressure 116/69. GENERAL: Alert and oriented, no acute distress. CV: S1-S2. CHEST: Equal expansion. Clear to auscultation. No acute distress. ABDOMEN: Soft. Nontender. No distention. HEENT: Moist. No pallor. No JVD. EXTREMITIES: Left lower extremity cellulitis seems improved. ASSESSMENT AND PLAN: 1. Left lower extremity cellulitis. 2. Chronic kidney disease. 3. Gout. 4. Diabetes mellitus. 5. Obesity. 6. Fever, resolved. 7. Schizophrenia. 8. Thrombophlebitis of the left lower extremity. Antibiotics changed to Zyvox. Monitor platelet. The patient's progress on Zyvox overall seems improved. Monitor platelets. Please refer to chart for more information. Discussed with Dr. Bledsoe in details. MD KELSEY Henry/VIJAY /[id number]
--- NOTE | 2020-02-19 01:07 | Discharge Summary ---
FINAL DISCHARGE DIAGNOSES: 1. Left lower extremity cellulitis. 2. Acute kidney injury secondary to prerenal azotemia. 3. Type 2 diabetes. 4. History of bipolar schizophrenia. CONSULTANTS: Infectious Disease, Wound Care, Pulmonary. VITAL SIGNS: Temperature was 97.5, pulse 67, respiratory rate was 18, blood pressure was 130/72, pulse ox 99% on room air. LABORATORY DATA: Labs show white count 9.9, hemoglobin is 13, hematocrit is 41, and platelets of 237. Chemistry; sodium 142, potassium 4, chloride 106, bicarb 25, anion gap of 15, BUN is 18, creatinine is 1.47, glucose is 104, calcium is 9.8, total bilirubin is 0.9, AST 21, ALT 42, alkaline phosphatase 127. Troponins were negative. Albumin 3.7. CK 164, normal. Lipase level was 24. Urinalysis negative. SEROLOGY: Coronavirus x2 was negative. MICROBIOLOGY: Blood cultures were negative. IMAGING STUDIES: Chest x-ray, no acute cardiopulmonary process identified. Lower extremity venous Doppler of the left leg shows no evidence of any DVT on the left lower extremity. HOSPITAL COURSE: A 59-year-old male, morbidly obese with multiple psychiatric history, comes into the ED with underlying fever, found to have cellulitis in the left lower extremity. The patient was admitted. Initially, he was complaining of some shortness of breath, in which he had coronavirus PCR x2 performed, found to be negative. Pulmonary Critical Care was consulted. Recommended IV antibiotic therapy. ID was consulted. ID was treating underlying cellulitis and possible underlying pneumonia. Blood cultures were negative. His left lower extremity cellulitis improved throughout the hospital course. He also had local wound care provided by the wound care physician. The patient maintained on the same home oral medications, but I discontinued the oral metformin on discharge due to elevated creatinine level. His creatinine improved with IV fluid hydration. The patient has underlying chronic kidney disease. The patient was discharged on oral doxycycline for 2 weeks as per ID recommendations. The patient was cleared for discharge by all consultants. On the day of discharge, vital signs were stable, labs reviewed and stable. The patient is seen and evaluated and examined thoroughly on the day of discharge with no other complaints. The patient verbalized understanding and agrees to plan of care to follow up accordingly outpatient with the primary care physician in 1 week and the ID doctor in 2 weeks' time. MEDICATIONS: See med reconciliation form. DISPOSITION: Home. CONDITION: Stable. DIET: Heart healthy. In the event of any worsening symptoms, the patient was advised to come back to the ED for further evaluation. Discharge summary took greater than 35 minutes. MD WERNER Salter/MODHattie /[id number]
== END 2020-02-18 14:53 | disposition home or self-care (01) | DRG 294 ==
LOC: ER 14:17 → ERHOLD 16:27 → MED/SURG3 02-12 08:41 → IMCU 02-12 09:15 → MED/SURG2 02-12 17:45
PROVIDERS: ADMIT Internal Medicine; ATTEND Internal Medicine
DX: I80.3 Phlebitis and thrombophlebitis of lower extremities, unspecified (principal); N17.9 Acute kidney failure, unspecified; L03.116 Cellulitis of left lower limb; I13.0 Hypertensive heart and chronic kidney disease with heart failure and stage 1 through stage 4 chronic kidney disease, or unspecified chronic kidney disease; Z68.41 Body mass index [BMI] 40.0-44.9, adult; N18.3 Chronic kidney disease, stage 3 (moderate); F31.9 Bipolar disorder, unspecified; E11.22 Type 2 diabetes mellitus with diabetic chronic kidney disease; I50.9 Heart failure, unspecified; K21.9 Gastro-esophageal reflux disease without esophagitis; Z79.82 Long term (current) use of aspirin; Z79.4 Long term (current) use of insulin; E66.01 Morbid (severe) obesity due to excess calories; Z83.3 Family history of diabetes mellitus; Z82.49 Family history of ischemic heart disease and other diseases of the circulatory system; E86.0 Dehydration; Z11.59 Encounter for screening for other viral diseases; R53.81 Other malaise; M10.9 Gout, unspecified; F20.9 Schizophrenia, unspecified
CPT/HCPCS: 36415; 71045; 80048; 80053; 80202; 81001; 82550; 82553; 82948; 83605; 83690; 84484; 85025; 87040; 87635; 93971; 96372; 99285; J0360; J0692; J1650; J1815; J2020; J3370; J7030

== ENCOUNTER 2020-08-26 12:07 | Inpatient (IN) | payer OTHER, MEDICARE ==
[~2020-08-26] VITALS: Ht 175.3 cm; Wt 128.8 kg
[2020-08-26] MEDS ORDERED: PIPERACILLIN/TAZO 4.5 GM 100 ML IV STA (12:37)
[2020-08-26] MEDS: VANCOMYCIN 500MG/NS 0.9% 100ML 100 ML IV SCH (12:45)
[2020-08-26 13:08] LABS: BASOPHILS % 0.5 % (0.0-1.0); EOSINOPHILS # (AUTO) 0.3 (0.0-0.4); EOSINOPHILS % 3.8 % (0.0-6.0); HEMATOCRIT 39.7 % (38.2-49.6); HEMOGLOBIN 12.8 g/dL (14.0-18.0); LYMPHOCYTES # (AUTO) 0.8 (1.0-3.2); LYMPHOCYTES % 9.6 % (18.0-39.1); MEAN CORPUSCULAR HEMOGLOBIN 28.6 pg (28-32); MEAN CORPUSCULAR HGB CONC 32.2 g/dL (31-35); MEAN CORPUSCULAR VOLUME 88.8 fL (81-99); MONOCYTES # (AUTO) 0.7 (0.2-0.8); MONOCYTES % 7.8 % (4.4-11.3); NEUTROPHILS # (AUTO) 6.6 (2.1-6.9); NEUTROPHILS % 77.8 % (38.7-80.0); PLATELET COUNT 242 x10e3/uL (140-360); RED BLOOD COUNT 4.47 x10e6/uL (4.3-5.7); RED CELL DISTRIBUTION WIDTH 13.6 % (11.7-14.4)
[2020-08-26 13:26] LABS: ALBUMIN/GLOBULIN RATIO 1.1 (0.8-2.0); ANION GAP 14.9 mmol/L (8-16); CALCIUM 9.3 mg/dL (8.4-10.2); CREATININE, SERUM 1.39 mg/dL (0.72-1.25); POTASSIUM 3.9 mmol/L (3.5-5.1)
[2020-08-26 13:41] LABS: CLARITY,URINE CLEAR (CLEAR); COLOR,URINE YELLOW (YELLOW); EPITHELIAL CELLS,URINE RARE /LPF; KETONES,URINE NEGATIVE (NEGATIVE); LEUKOCYTE ESTERASE ,URINE NEGATIVE (NEGATIVE); NITRITE,URINE NEGATIVE (NEGATIVE); PROTEIN,URINE DIPSTICK NEGATIVE (NEGATIVE); RBC,URINE 0-5 /HPF (0-5); URINE UROBILINOGEN 1 mg/dL (0.2 - 1); WBC,URINE (MAN) 0-5 /HPF (0-5)
[2020-08-26] MEDS ORDERED: POTASSIUM CHLORIDE 20 MEQ TAB CR PO PRN (14:15)
[2020-08-26] MEDS ORDERED: BENZONATATE 100 MG CAP PO PRN (14:15)
[2020-08-26] MEDS ORDERED: SIMETHICONE 80 MG CHEW PO PRN (14:15)
[2020-08-26] MEDS ORDERED: HYDRALAZINE HCL 20 MG/ML VIAL IV PRN (14:15)
[2020-08-26] MEDS ORDERED: CHLORASEPTIC SPRAY 177 ML BTL MM PRN (14:15)
[2020-08-26] MEDS ORDERED: ACETAMINOPHEN 325 MG TAB PO PRN (14:15)
[2020-08-26] MEDS ORDERED: ALBUTEROL/IPRATROPIUM 3 ML NEB NEB PRN (14:15)
[2020-08-26] MEDS ORDERED: GUAIFENESIN/CODEINE 10 ML CUP PO PRN (14:15)
[2020-08-26] MEDS ORDERED: DIPHENHYDRAMINE HCL 25 MG CAP PO PRN (14:15)
[2020-08-26] MEDS ORDERED: LIDOCAINE 4% PATCH TP PRN (14:15)
[2020-08-26] MEDS ORDERED: DEXTROSE 50% SYRINGE 50 ML IV PRN (14:15)
[2020-08-26] MEDS ORDERED: MORPHINE SULFATE INJ 4 MG/ML INJ 1ML IV PRN (14:15)
[2020-08-26 15:13] VITALS: BP 151/90
[2020-08-26 15:19] VITALS: BP 151/90
[2020-08-26] MEDS: ENOXAPARIN SOD INJ 40 MG/0.4 ML SYR SC SCH (18:17)
[2020-08-26] MEDS: CEFEPIME 1GM/NS 0.9% 50 ML 50 ML IV SCH (18:17)
[2020-08-26] MEDS ORDERED: SODIUM CHLORIDE 0.9% 250ML 250 ML ONE (18:22)
[2020-08-26] MEDS: MORPHINE SULFATE INJ 2 MG/ML SYR IV PRN ×2 (18:44→22:45)
[2020-08-26] MEDS: ONDANSETRON HCL INJ 2MG/ML 2ML 2 MG/ML VIAL IV PRN (18:45)
[2020-08-26 19:00] VITALS: BP 176/84
[2020-08-26] MEDS: HYDROCODONE/APAP 5MG-325MG TAB PO PRN (20:15)
[2020-08-26] MEDS: SODIUM CHLORIDE 0.9% 1000ML 1,000 ML IV SCH (20:35)
[2020-08-26 21:00] VITALS: BP 176/84
[2020-08-26] MEDS ORDERED: MELATONIN 5 MG TABLET PO PRN (21:00)
[2020-08-27] VITALS (8 sets, daily range): BP systolic 132–184; BP diastolic 64–84
[2020-08-27] MEDS: VANCOMYCIN 500MG/NS 0.9% 100ML 100 ML IV SCH ×2 (00:36→12:57)
[2020-08-27] MEDS: SODIUM CHLORIDE 0.9% 1000ML 1,000 ML IV SCH ×2 (03:12→17:39)
[2020-08-27] MEDS: MORPHINE SULFATE INJ 2 MG/ML SYR IV PRN ×4 (03:17→21:07)
[2020-08-27] MEDS: HYDROCODONE/APAP 5MG-325MG TAB PO PRN ×3 (04:33→18:35)
[2020-08-27] MEDS: CEFEPIME 1GM/NS 0.9% 50 ML 50 ML IV SCH ×2 (04:59→17:39)
[2020-08-27 05:25] LABS: BASOPHILS % 0.4 % (0.0-1.0); EOSINOPHILS # (AUTO) 0.3 (0.0-0.4); EOSINOPHILS % 3.8 % (0.0-6.0); HEMATOCRIT 37.3 % (38.2-49.6); LYMPHOCYTES # (AUTO) 0.9 (1.0-3.2); LYMPHOCYTES % 12.7 % (18.0-39.1); MEAN CORPUSCULAR HEMOGLOBIN 29.1 pg (28-32); MEAN CORPUSCULAR HGB CONC 32.2 g/dL (31-35); MEAN CORPUSCULAR VOLUME 90.3 fL (81-99); MONOCYTES # (AUTO) 0.7 (0.2-0.8); MONOCYTES % 9.2 % (4.4-11.3); NEUTROPHILS # (AUTO) 5.4 (2.1-6.9); NEUTROPHILS % 73.5 % (38.7-80.0); PLATELET COUNT 222 x10e3/uL (140-360); RED BLOOD COUNT 4.13 x10e6/uL (4.3-5.7); RED CELL DISTRIBUTION WIDTH 13.5 % (11.7-14.4)
[2020-08-27 05:48] LABS: ALBUMIN 3.5 g/dL (3.5-5.0); ALBUMIN/GLOBULIN RATIO 1.1 (0.8-2.0); ANION GAP 15.6 mmol/L (8-16); CALCIUM 9.1 mg/dL (8.4-10.2); CREATININE, SERUM 1.37 mg/dL (0.72-1.25); MAGNESIUM 2.1 MG/DL (1.3-2.1); PHOSPHORUS 3.7 MG/DL (2.3-4.7); POTASSIUM 4.6 mmol/L (3.5-5.1)
[2020-08-27] MEDS: PANTOPRAZOLE SOD 40 MG TABEC PO SCH (07:46)
[2020-08-27] MEDS ORDERED: GADOBENATE DIMEGLUMINE 0 ML IV ONE (10:11)
[2020-08-27] MEDS ORDERED: GABAPENTIN 300 MG CAP PO PRN (10:15)
[2020-08-27] MEDS ORDERED: IBUPROFEN 400 MG TAB PO ONE (11:15)
[2020-08-27] MEDS: ARIPIPRAZOLE 20 MG TAB PO SCH (11:20)
[2020-08-27] MEDS: CITALOPRAM HYDROBROMIDE 20 MG TAB PO SCH (11:21)
[2020-08-27] MEDS: LAMOTRIGINE 100 MG TAB PO SCH (11:21)
[2020-08-27] MEDS: ALLOPURINOL 100 MG TAB PO SCH (11:22)
[2020-08-27] MEDS: AMLODIPINE BESYLATE 10 MG TAB PO SCH (11:22)
[2020-08-27] MEDS ORDERED: DEXTROSE 50% SYRINGE 50 ML IV PRN (13:00)
[2020-08-27] MEDS: INSULIN LISPRO 100 UNIT/1 ML 3ML VIAL SQ SCH ×2 (17:30→21:00)
[2020-08-27] MEDS: ENOXAPARIN SOD INJ 40 MG/0.4 ML SYR SC SCH (17:39)
[2020-08-27] MEDS: ATORVASTATIN 40 MG TAB PO SCH (20:55)
[2020-08-27] MEDS: INSULIN GLARGINE 100 UNITS/ML VIAL SQ SCH (21:00)
[2020-08-27] MEDS ORDERED: IOPAMIDOL 370 MG/ML 200 ML INFUS..BTL INJ ONE (22:23)
[2020-08-27] MEDS ORDERED: SODIUM CHLORIDE 0.9% 50ML 50 ML ONE (22:23)
[2020-08-28] VITALS (8 sets, daily range): BP systolic 131–180; BP diastolic 63–94
[2020-08-28] MEDS: VANCOMYCIN 500MG/NS 0.9% 100ML 100 ML IV SCH ×2 (01:40→11:37)
[2020-08-28] MEDS: MORPHINE SULFATE INJ 2 MG/ML SYR IV PRN (02:32)
[2020-08-28] MEDS: CEFEPIME 1GM/NS 0.9% 50 ML 50 ML IV SCH ×2 (04:30→16:57)
[2020-08-28 05:57] LABS: BASOPHILS % 0.4 % (0.0-1.0); EOSINOPHILS # (AUTO) 0.3 (0.0-0.4); EOSINOPHILS % 4.3 % (0.0-6.0); HEMOGLOBIN 11.9 g/dL (14.0-18.0); LYMPHOCYTES # (AUTO) 0.8 (1.0-3.2); LYMPHOCYTES % 10.9 % (18.0-39.1); MEAN CORPUSCULAR HEMOGLOBIN 28.7 pg (28-32); MEAN CORPUSCULAR HGB CONC 32.2 g/dL (31-35); MEAN CORPUSCULAR VOLUME 89.2 fL (81-99); MONOCYTES # (AUTO) 0.6 (0.2-0.8); MONOCYTES % 7.7 % (4.4-11.3); NEUTROPHILS # (AUTO) 5.6 (2.1-6.9); NEUTROPHILS % 76.4 % (38.7-80.0); PLATELET COUNT 234 x10e3/uL (140-360); RED BLOOD COUNT 4.15 x10e6/uL (4.3-5.7); RED CELL DISTRIBUTION WIDTH 13.5 % (11.7-14.4)
[2020-08-28] MEDS: SODIUM CHLORIDE 0.9% 1000ML 1,000 ML IV SCH (06:10)
[2020-08-28] MEDS: PANTOPRAZOLE SOD 40 MG TABEC PO SCH (06:10)
[2020-08-28 06:22] LABS: ALBUMIN 3.5 g/dL (3.5-5.0); ANION GAP 12.3 mmol/L (8-16); CALCIUM 9.3 mg/dL (8.4-10.2); CREATININE, SERUM 1.23 mg/dL (0.72-1.25); POTASSIUM 4.3 mmol/L (3.5-5.1)
[2020-08-28] MEDS: INSULIN LISPRO 100 UNIT/1 ML 3ML VIAL SQ SCH ×4 (07:30→20:30)
[2020-08-28] MEDS: ARIPIPRAZOLE 20 MG TAB PO SCH (07:49)
[2020-08-28] MEDS: CITALOPRAM HYDROBROMIDE 20 MG TAB PO SCH (07:50)
[2020-08-28] MEDS: AMLODIPINE BESYLATE 10 MG TAB PO SCH (07:50)
[2020-08-28] MEDS: LAMOTRIGINE 100 MG TAB PO SCH (07:50)
[2020-08-28] MEDS: DOCUSATE SODIUM 100 MG CAP PO PRN (07:51)
[2020-08-28] MEDS: ALLOPURINOL 100 MG TAB PO SCH (07:51)
[2020-08-28] MEDS: HYDROCODONE/APAP 5MG-325MG TAB PO PRN ×3 (07:52→21:51)
[2020-08-28] MEDS: BALSAM PERU/CASTOR OIL 60 GM OINT...G. TP SCH (08:40)
[2020-08-28] MEDS: POLYETHYLENE GLYCOL 3350 17 GM PACK PO PRN (16:56)
[2020-08-28] MEDS: ENOXAPARIN SOD INJ 40 MG/0.4 ML SYR SC SCH (16:57)
[2020-08-28] MEDS: INSULIN GLARGINE 100 UNITS/ML VIAL SQ SCH (20:30)
[2020-08-28] MEDS: ATORVASTATIN 40 MG TAB PO SCH (20:30)
[2020-08-29] VITALS (8 sets, daily range): BP systolic 127–168; BP diastolic 78–93
[2020-08-29] MEDS: VANCOMYCIN 500MG/NS 0.9% 100ML 100 ML IV SCH ×2 (00:45→12:41)
[2020-08-29] MEDS: POLYETHYLENE GLYCOL 3350 17 GM PACK PO PRN (04:24)
[2020-08-29] MEDS: HYDROCODONE/APAP 5MG-325MG TAB PO PRN ×3 (04:24→22:30)
[2020-08-29] MEDS: CEFEPIME 1GM/NS 0.9% 50 ML 50 ML IV SCH ×2 (04:30→17:11)
[2020-08-29] MEDS: INSULIN LISPRO 100 UNIT/1 ML 3ML VIAL SQ SCH ×4 (07:30→21:00)
[2020-08-29] MEDS: PANTOPRAZOLE SOD 40 MG TABEC PO SCH (07:31)
[2020-08-29] MEDS: ARIPIPRAZOLE 20 MG TAB PO SCH (09:32)
[2020-08-29] MEDS: CITALOPRAM HYDROBROMIDE 20 MG TAB PO SCH (09:32)
[2020-08-29] MEDS: BALSAM PERU/CASTOR OIL 60 GM OINT...G. TP SCH (09:33)
[2020-08-29] MEDS: AMLODIPINE BESYLATE 10 MG TAB PO SCH (09:38)
[2020-08-29] MEDS ORDERED: TRAZODONE HCL50 MG PO (09:42)
[2020-08-29] MEDS: ENOXAPARIN SOD INJ 40 MG/0.4 ML SYR SC SCH (17:11)
[2020-08-29] MEDS: ALLOPURINOL 100 MG TAB PO SCH (17:24)
[2020-08-29] MEDS: INSULIN GLARGINE 100 UNITS/ML VIAL SQ SCH (21:00)
[2020-08-29] MEDS: ATORVASTATIN 40 MG TAB PO SCH (21:43)
[2020-08-29] MEDS: TRAZODONE HCL 50 MG TAB PO SCH (21:43)
[2020-08-29] MEDS: LAMOTRIGINE 100 MG TAB PO SCH (21:43)
[2020-08-30] VITALS (8 sets, daily range): BP systolic 122–163; BP diastolic 63–97
[2020-08-30] MEDS: VANCOMYCIN 500MG/NS 0.9% 100ML 100 ML IV SCH ×2 (00:23→12:53)
[2020-08-30] MEDS: ONDANSETRON HCL INJ 2MG/ML 2ML 2 MG/ML VIAL IV PRN ×2 (01:57→10:13)
[2020-08-30] MEDS: MORPHINE SULFATE INJ 2 MG/ML SYR IV PRN ×5 (01:57→19:03)
[2020-08-30] MEDS: CEFEPIME 1GM/NS 0.9% 50 ML 50 ML IV SCH ×2 (05:47→17:05)
[2020-08-30] MEDS: INSULIN LISPRO 100 UNIT/1 ML 3ML VIAL SQ SCH ×4 (07:30→20:30)
[2020-08-30 07:40] LABS: BASOPHILS % 0.4 % (0.0-1.0); EOSINOPHILS # (AUTO) 0.4 (0.0-0.4); EOSINOPHILS % 3.2 % (0.0-6.0); HEMATOCRIT 37.5 % (38.2-49.6); HEMOGLOBIN 12.2 g/dL (14.0-18.0); LYMPHOCYTES % 8.7 % (18.0-39.1); MEAN CORPUSCULAR HEMOGLOBIN 28.7 pg (28-32); MEAN CORPUSCULAR HGB CONC 32.5 g/dL (31-35); MEAN CORPUSCULAR VOLUME 88.2 fL (81-99); MONOCYTES # (AUTO) 0.8 (0.2-0.8); MONOCYTES % 7.5 % (4.4-11.3); NEUTROPHILS # (AUTO) 8.8 (2.1-6.9); NEUTROPHILS % 79.7 % (38.7-80.0); PLATELET COUNT 231 x10e3/uL (140-360); RED BLOOD COUNT 4.25 x10e6/uL (4.3-5.7); RED CELL DISTRIBUTION WIDTH 13.2 % (11.7-14.4)
[2020-08-30 08:01] LABS: ANION GAP 14.1 mmol/L (8-16); BLOOD UREA NITROGEN 15 mg/dL (7-26); BUN/CREATININE RATIO 13 (6-25); CALCIUM 9.2 mg/dL (8.4-10.2); CARBON DIOXIDE 23 mmol/L (22-29); CHLORIDE 104 mmol/L (98-107); CREATININE, SERUM 1.17 mg/dL (0.72-1.25); EST GLOMERULAR FILTRATION RATE > 60 ML/MIN (60-); GLUCOSE 166 mg/dL (74-118); POTASSIUM 4.1 mmol/L (3.5-5.1); SODIUM 137 mmol/L (136-145)
[2020-08-30] MEDS: HYDROCODONE/APAP 5MG-325MG TAB PO PRN ×2 (08:25→15:27)
[2020-08-30] MEDS: PANTOPRAZOLE SOD 40 MG TABEC PO SCH (08:26)
[2020-08-30] MEDS: ARIPIPRAZOLE 20 MG TAB PO SCH (08:26)
[2020-08-30] MEDS: CITALOPRAM HYDROBROMIDE 20 MG TAB PO SCH (08:26)
[2020-08-30] MEDS: AMLODIPINE BESYLATE 10 MG TAB PO SCH (08:27)
[2020-08-30] MEDS: BALSAM PERU/CASTOR OIL 60 GM OINT...G. TP SCH (08:35)
[2020-08-30] MEDS: ALLOPURINOL 100 MG TAB PO SCH (17:05)
[2020-08-30] MEDS: ENOXAPARIN SOD INJ 40 MG/0.4 ML SYR SC SCH (17:05)
[2020-08-30] MEDS: LAMOTRIGINE 100 MG TAB PO SCH (20:30)
[2020-08-30] MEDS: TRAZODONE HCL 50 MG TAB PO SCH (20:30)
[2020-08-30] MEDS: ATORVASTATIN 40 MG TAB PO SCH (20:30)
[2020-08-30] MEDS: INSULIN GLARGINE 100 UNITS/ML VIAL SQ SCH (20:31)
[2020-08-31] VITALS (8 sets, daily range): BP systolic 140–156; BP diastolic 66–88
[2020-08-31] MEDS: VANCOMYCIN 500MG/NS 0.9% 100ML 100 ML IV SCH ×2 (00:05→12:55)
[2020-08-31] MEDS: HYDROCODONE/APAP 5MG-325MG TAB PO PRN ×3 (01:37→14:36)
[2020-08-31] MEDS: CEFEPIME 1GM/NS 0.9% 50 ML 50 ML IV SCH ×2 (05:26→17:14)
[2020-08-31] MEDS: MORPHINE SULFATE INJ 2 MG/ML SYR IV PRN ×2 (07:00→11:09)
[2020-08-31] MEDS: ONDANSETRON HCL INJ 2MG/ML 2ML 2 MG/ML VIAL IV PRN (07:00)
[2020-08-31] MEDS: PANTOPRAZOLE SOD 40 MG TABEC PO SCH (08:54)
[2020-08-31] MEDS: ARIPIPRAZOLE 20 MG TAB PO SCH (08:54)
[2020-08-31] MEDS: CITALOPRAM HYDROBROMIDE 20 MG TAB PO SCH (08:54)
[2020-08-31] MEDS: BALSAM PERU/CASTOR OIL 60 GM OINT...G. TP SCH (08:55)
[2020-08-31] MEDS: AMLODIPINE BESYLATE 10 MG TAB PO SCH (08:55)
[2020-08-31] MEDS: INSULIN LISPRO 100 UNIT/1 ML 3ML VIAL SQ SCH ×4 (08:56→21:42)
[2020-08-31] MEDS: ALLOPURINOL 100 MG TAB PO SCH (17:14)
[2020-08-31] MEDS: ENOXAPARIN SOD INJ 40 MG/0.4 ML SYR SC SCH (17:14)
[2020-08-31] MEDS: TRAZODONE HCL 50 MG TAB PO SCH (20:52)
[2020-08-31] MEDS: HYDROCODONE/APAP 10MG-325MG TAB PO PRN (20:53)
[2020-08-31] MEDS: LAMOTRIGINE 100 MG TAB PO SCH (20:53)
[2020-08-31] MEDS: ATORVASTATIN 40 MG TAB PO SCH (20:53)
[2020-08-31] MEDS: INSULIN GLARGINE 100 UNITS/ML VIAL SQ SCH (21:44)
[2020-09-01] VITALS (8 sets, daily range): BP systolic 132–158; BP diastolic 63–82
[2020-09-01] MEDS: VANCOMYCIN 500MG/NS 0.9% 100ML 100 ML IV SCH ×2 (00:06→12:45)
[2020-09-01] MEDS: CEFEPIME 1GM/NS 0.9% 50 ML 50 ML IV SCH ×2 (05:10→16:56)
[2020-09-01 05:12] LABS: BASOPHILS # (AUTO) 0.1 (0.0-0.1); BASOPHILS % 0.5 % (0.0-1.0); EOSINOPHILS # (AUTO) 0.3 (0.0-0.4); EOSINOPHILS % 3.3 % (0.0-6.0); HEMATOCRIT 37.1 % (38.2-49.6); HEMOGLOBIN 12.1 g/dL (14.0-18.0); LYMPHOCYTES % 10.4 % (18.0-39.1); MEAN CORPUSCULAR HEMOGLOBIN 29.2 pg (28-32); MEAN CORPUSCULAR HGB CONC 32.6 g/dL (31-35); MEAN CORPUSCULAR VOLUME 89.4 fL (81-99); MONOCYTES # (AUTO) 0.6 (0.2-0.8); MONOCYTES % 6.5 % (4.4-11.3); NEUTROPHILS # (AUTO) 7.2 (2.1-6.9); NEUTROPHILS % 78.9 % (38.7-80.0); PLATELET COUNT 222 x10e3/uL (140-360); RED BLOOD COUNT 4.15 x10e6/uL (4.3-5.7); RED CELL DISTRIBUTION WIDTH 13.1 % (11.7-14.4)
[2020-09-01 05:35] LABS: ANION GAP 13.1 mmol/L (8-16); BLOOD UREA NITROGEN 18 mg/dL (7-26); BUN/CREATININE RATIO 15 (6-25); CALCIUM 9.1 mg/dL (8.4-10.2); CARBON DIOXIDE 26 mmol/L (22-29); CHLORIDE 104 mmol/L (98-107); CREATININE, SERUM 1.21 mg/dL (0.72-1.25); EST GLOMERULAR FILTRATION RATE > 60 ML/MIN (60-); GLUCOSE 138 mg/dL (74-118); POTASSIUM 4.1 mmol/L (3.5-5.1); SODIUM 139 mmol/L (136-145)
[2020-09-01] MEDS: HYDROCODONE/APAP 10MG-325MG TAB PO PRN ×3 (07:22→23:23)
[2020-09-01] MEDS: INSULIN LISPRO 100 UNIT/1 ML 3ML VIAL SQ SCH ×4 (07:30→21:00)
[2020-09-01] MEDS: PANTOPRAZOLE SOD 40 MG TABEC PO SCH (07:30)
[2020-09-01] MEDS: BALSAM PERU/CASTOR OIL 60 GM OINT...G. TP SCH (09:00)
[2020-09-01] MEDS: CITALOPRAM HYDROBROMIDE 20 MG TAB PO SCH (09:00)
[2020-09-01] MEDS: ARIPIPRAZOLE 20 MG TAB PO SCH (09:00)
[2020-09-01] MEDS: AMLODIPINE BESYLATE 10 MG TAB PO SCH (09:00)
[2020-09-01] MEDS: ENOXAPARIN SOD INJ 40 MG/0.4 ML SYR SC SCH (16:56)
[2020-09-01] MEDS: ALLOPURINOL 100 MG TAB PO SCH (16:56)
[2020-09-01] MEDS: DOCUSATE SODIUM 100 MG CAP PO PRN (17:34)
[2020-09-01] MEDS: INSULIN GLARGINE 100 UNITS/ML VIAL SQ SCH (21:00)
[2020-09-01] MEDS: LAMOTRIGINE 100 MG TAB PO SCH (21:30)
[2020-09-01] MEDS: ATORVASTATIN 40 MG TAB PO SCH (21:30)
[2020-09-01] MEDS: TRAZODONE HCL 50 MG TAB PO SCH (21:30)
[2020-09-01] MEDS: VANCOMYCIN 1GM/NS 250 ML 250 ML IV SCH (21:30)
[2020-09-02] VITALS (8 sets, daily range): BP systolic 142–149; BP diastolic 75–88
[2020-09-02] MEDS: CEFEPIME 1GM/NS 0.9% 50 ML 50 ML IV SCH ×2 (04:25→17:06)
[2020-09-02] MEDS: HYDROCODONE/APAP 10MG-325MG TAB PO PRN ×3 (05:28→20:35)
[2020-09-02] MEDS: INSULIN LISPRO 100 UNIT/1 ML 3ML VIAL SQ SCH ×4 (07:30→21:00)
[2020-09-02] MEDS: CITALOPRAM HYDROBROMIDE 20 MG TAB PO SCH (08:32)
[2020-09-02] MEDS: ARIPIPRAZOLE 20 MG TAB PO SCH (08:32)
[2020-09-02] MEDS: VANCOMYCIN 1GM/NS 250 ML 250 ML IV SCH ×2 (08:32→20:34)
[2020-09-02] MEDS: PANTOPRAZOLE SOD 40 MG TABEC PO SCH (08:32)
[2020-09-02] MEDS: AMLODIPINE BESYLATE 10 MG TAB PO SCH (08:33)
[2020-09-02] MEDS: BALSAM PERU/CASTOR OIL 60 GM OINT...G. TP SCH (08:33)
[2020-09-02] MEDS ORDERED: ONDANSETRON HCL 4 MG ORAL DISINTEGRATING TAB PO PRN (10:00)
[2020-09-02] MEDS: ALLOPURINOL 100 MG TAB PO SCH (17:06)
[2020-09-02] MEDS: LAMOTRIGINE 100 MG TAB PO SCH (20:35)
[2020-09-02] MEDS: ATORVASTATIN 40 MG TAB PO SCH (20:35)
[2020-09-02] MEDS: INSULIN GLARGINE 100 UNITS/ML VIAL SQ SCH (21:00)
[2020-09-02] MEDS: TRAZODONE HCL 50 MG TAB PO SCH (21:55)
[2020-09-03] VITALS (8 sets, daily range): BP systolic 127–157; BP diastolic 68–80
[2020-09-03] MEDS: HYDROCODONE/APAP 10MG-325MG TAB PO PRN ×4 (02:55→21:43)
[2020-09-03] MEDS: CEFEPIME 1GM/NS 0.9% 50 ML 50 ML IV SCH ×2 (05:59→18:43)
[2020-09-03] MEDS: INSULIN LISPRO 100 UNIT/1 ML 3ML VIAL SQ SCH ×4 (08:00→21:00)
[2020-09-03] MEDS: BALSAM PERU/CASTOR OIL 60 GM OINT...G. TP SCH (09:00)
[2020-09-03] MEDS: AMLODIPINE BESYLATE 10 MG TAB PO SCH (09:00)
[2020-09-03] MEDS: PANTOPRAZOLE SOD 40 MG TABEC PO SCH (09:00)
[2020-09-03] MEDS: CITALOPRAM HYDROBROMIDE 20 MG TAB PO SCH (09:00)
[2020-09-03] MEDS: ARIPIPRAZOLE 20 MG TAB PO SCH (09:00)
[2020-09-03] MEDS: VANCOMYCIN 1GM/NS 250 ML 250 ML IV SCH ×2 (11:30→21:43)
[2020-09-03] MEDS: ALLOPURINOL 100 MG TAB PO SCH (17:30)
[2020-09-03] MEDS: INSULIN GLARGINE 100 UNITS/ML VIAL SQ SCH (21:00)
[2020-09-03] MEDS: LAMOTRIGINE 100 MG TAB PO SCH (21:43)
[2020-09-03] MEDS: ATORVASTATIN 40 MG TAB PO SCH (21:43)
[2020-09-03] MEDS: TRAZODONE HCL 50 MG TAB PO SCH (21:43)
[2020-09-04 01:36] VITALS: BP 154/75
[2020-09-04] MEDS: HYDROCODONE/APAP 10MG-325MG TAB PO PRN ×3 (04:31→17:20)
[2020-09-04 05:10] VITALS: BP 125/62
[2020-09-04] MEDS: CEFEPIME 1GM/NS 0.9% 50 ML 50 ML IV SCH ×2 (05:20→17:00)
[2020-09-04] MEDS: INSULIN LISPRO 100 UNIT/1 ML 3ML VIAL SQ SCH ×3 (07:30→16:30)
[2020-09-04 08:19] VITALS: BP 125/62
[2020-09-04 08:47] VITALS: BP 131/75
[2020-09-04] MEDS: PANTOPRAZOLE SOD 40 MG TABEC PO SCH (10:00)
[2020-09-04] MEDS: BALSAM PERU/CASTOR OIL 60 GM OINT...G. TP SCH (10:00)
[2020-09-04] MEDS: ARIPIPRAZOLE 20 MG TAB PO SCH (10:00)
[2020-09-04] MEDS: AMLODIPINE BESYLATE 10 MG TAB PO SCH (10:00)
[2020-09-04] MEDS: VANCOMYCIN 1GM/NS 250 ML 250 ML IV SCH (10:00)
[2020-09-04] MEDS: CITALOPRAM HYDROBROMIDE 20 MG TAB PO SCH (10:00)
[2020-09-04 12:08] VITALS: BP 138/70
== END 2020-09-04 17:30 | disposition home or self-care (01) | DRG 603 ==
LOC: ER 12:47 → ERHOLD 13:58 → MED/SURG2 14:37
PROVIDERS: ADMIT Internal Medicine; ATTEND Internal Medicine
PROC: 02HV33Z Insertion of Infusion Device into Superior Vena Cava, Percutaneous Approach (ICD-10-PCS; principal; 2020-08-30)
PROC: B548ZZA Ultrasonography of Superior Vena Cava, Guidance (ICD-10-PCS; 2020-08-30)
DX: L03.115 Cellulitis of right lower limb (principal); I13.0 Hypertensive heart and chronic kidney disease with heart failure and stage 1 through stage 4 chronic kidney disease, or unspecified chronic kidney disease; I50.9 Heart failure, unspecified; F41.9 Anxiety disorder, unspecified; K21.9 Gastro-esophageal reflux disease without esophagitis; E11.22 Type 2 diabetes mellitus with diabetic chronic kidney disease; N18.9 Chronic kidney disease, unspecified; F31.9 Bipolar disorder, unspecified; Z88.8 Allergy status to other drugs, medicaments and biological substances; Z96.653 Presence of artificial knee joint, bilateral; Z83.3 Family history of diabetes mellitus; Z82.49 Family history of ischemic heart disease and other diseases of the circulatory system; Z20.828 Contact with and (suspected) exposure to other viral communicable diseases; Z79.82 Long term (current) use of aspirin; Z79.84 Long term (current) use of oral hypoglycemic drugs
CPT/HCPCS: 36415; 36569; 71045; 80048; 80053; 80202; 81001; 82948; 83605; 83735; 84100; 85025; 87040; 87086; 93005; 93970; 94660; 96372; 97139; 99251; 99284; J0360; J0692; J1650; J1815; J2270; J2405; J2543; J3370; J7030; J7050; Q9967; U0002

== ENCOUNTER → 2021-09-02 | Outpatient (CLI) | payer OTHER, MEDICARE ==
[~2021-09-02] MED LIST changes: +TRAZODONE HCL50 MG PO
== END ==
LOC: MRI 13:12
PROVIDERS: ATTEND Physician Assistant
DX: Z01.89 Encounter for other specified special examinations (principal)

== ENCOUNTER 2022-05-22 23:33 | Emergency (ER) | payer OTHER, MEDICARE ==
[~2022-05-22] VITALS: Ht 172.7 cm; Wt 128.8 kg
[2022-05-23] MEDS ORDERED: LOSARTAN POTASS50 MG PO (00:40)
== END 2022-05-23 00:54 | disposition home or self-care (01) ==
LOC: ER 23:52
DX: Z76.0 Encounter for issue of repeat prescription (principal); I10 Essential (primary) hypertension; E11.9 Type 2 diabetes mellitus without complications; E78.5 Hyperlipidemia, unspecified; F41.9 Anxiety disorder, unspecified; F31.9 Bipolar disorder, unspecified
CPT/HCPCS: 99282

== ENCOUNTER 2023-09-29 11:02 | Emergency (ER) | payer MEDICARE, OTHER ==
[~2023-09-29] VITALS: Ht 172.7 cm; Wt 128.8 kg
[~2023-09-29 11:02] MED LIST changes: +AUGMENTIN 500-1 EACH PO; +LOSARTAN POTASS50 MG PO; +ULTRAM 50MG50 MG PO
[2023-09-29 11:05] VITALS: O2SAT 98
== END 2023-09-29 12:46 | disposition home or self-care (01) ==
LOC: ER 11:10
DX: S00.83XA Contusion of other part of head, initial encounter (principal); W18.2XXA Fall in (into) shower or empty bathtub, initial encounter; Y92.89 Other specified places as the place of occurrence of the external cause; I10 Essential (primary) hypertension; E11.9 Type 2 diabetes mellitus without complications; E78.5 Hyperlipidemia, unspecified; K21.9 Gastro-esophageal reflux disease without esophagitis; F41.9 Anxiety disorder, unspecified; F31.9 Bipolar disorder, unspecified
CPT/HCPCS: 70450; 72125; 99283

== ENCOUNTER 2024-03-26 09:59 | Emergency (ER) | payer MEDICARE, OTHER ==
[~2024-03-26] VITALS: Ht 172.7 cm; Wt 128.8 kg
[2024-03-26 10:14] VITALS: PULSE 74; RESP 17; TEMP 98.1
[2024-03-26 10:59] LABS: BASOPHILS % 0.5 % (0.0-1.0); EOSINOPHILS # (AUTO) 0.2 (0.0-0.4); EOSINOPHILS % 2.7 % (0.0-6.0); HEMOGLOBIN 14.9 g/dL (14.0-18.0); LYMPHOCYTES # (AUTO) 0.9 (1.0-3.2); LYMPHOCYTES % 16.2 % (18.0-39.1); MEAN CORPUSCULAR HEMOGLOBIN 31.8 pg (28-32); MEAN CORPUSCULAR HGB CONC 35.5 g/dL (31-35); MEAN CORPUSCULAR VOLUME 89.7 fL (81-99); MONOCYTES # (AUTO) 0.7 (0.2-0.8); MONOCYTES % 11.2 % (4.4-11.3); NEUTROPHILS % 69.2 % (38.7-80.0); PLATELET COUNT 127 x10e3/uL (140-360); RED BLOOD COUNT 4.68 x10e6/uL (4.3-5.7); RED CELL DISTRIBUTION WIDTH 12.1 % (11.7-14.4); WHITE BLOOD COUNT 5.82 x10e3/uL (4.8-10.8)
[2024-03-26] MEDS: SODIUM CHLORIDE 0.9% 1000ML 1,000 ML IV ONE (11:02)
[2024-03-26 11:23] LABS: ALBUMIN 3.6 g/dL (3.5-5.0); ALBUMIN/GLOBULIN RATIO 1.2 (0.8-2.0); ANION GAP 13.7 mmol/L (8-16); CREATININE, SERUM 1.23 mg/dL (0.72-1.25); POTASSIUM 3.7 mmol/L (3.5-5.1); TOTAL PROTEIN 6.5 g/dL (6.5-8.1)
[2024-03-26 11:39] LABS: BILIRUBIN,TOTAL 0.6 mg/dL (0.2-1.2)
[2024-03-26] MEDS ORDERED: IOPAMIDOL 370 MG/ML 100 ML INFUS..BTL INJ ONE (12:28)
[2024-03-26 13:31] VITALS: BP 134/76; PULSE 73; RESP 16; TEMP 98.4; O2SAT 100
== END 2024-03-26 13:48 | disposition home or self-care (01) ==
LOC: ER 10:02
DX: R19.7 Diarrhea, unspecified (principal); B34.9 Viral infection, unspecified; I10 Essential (primary) hypertension; E78.5 Hyperlipidemia, unspecified; E11.9 Type 2 diabetes mellitus without complications; Z79.4 Long term (current) use of insulin; Z79.84 Long term (current) use of oral hypoglycemic drugs; K21.9 Gastro-esophageal reflux disease without esophagitis; F31.9 Bipolar disorder, unspecified; F41.9 Anxiety disorder, unspecified; Z79.899 Other long term (current) drug therapy; Z79.82 Long term (current) use of aspirin
CPT/HCPCS: 36415; 70450; 74177; 80053; 83690; 85025; 99284; J7030; Q9967